=== PATIENT | female | born 1985 | race Caucasian/White ===

== ENCOUNTER 2022-10-11 15:51 | Inpatient (IN) | payer BC, SELFPAY ==
[2022-10-11 16:12] VITALS: BP 138/92; PULSE 88; PULSE 89; TEMP 36.7; O2SAT 99
[2022-10-11 16:16] VITALS: BMI 30.1
[2022-10-11 16:28] VITALS: BP 127/83; PULSE 84
[2022-10-11 16:43] VITALS: BP 121/79; PULSE 90
[2022-10-11 17:13] LABS: Basophils Absolute Auto 0.02 K/uL (0.00-0.30); Basophils Percent Auto 0.2 % (0.0-3.0); Eosinophils Absolute Auto 0.03 K/uL (0.00-0.50); Eosinophils Percent Auto 0.4 % (0.0-7.0); Hematocrit 38.1 % (33.0-51.0); Hemoglobin* 12.9 gm/dL (12.0-16.0); Immature Granulocytes Abs Auto 0.04 K/uL (0.00-0.30); Immature Granulocytes Pct Auto 0.5 %; Lymphocytes Percent Auto 18.5 % (20-44); Mean Corpuscular HGB Conc 34 gm/dL (32-36); Mean Corpuscular Hemoglobin 31 pg (26-34); Mean Corpuscular Volume 93 fL (80-100); Monocytes Percent Auto 6.1 % (0.0-11.0); Neutrophils Percent Auto 74.3 % (42.0-72.0); Platelet Count* 223 K/uL (140-440); RDW Coefficient of Variation % 12.6 % (11.5-15.5); Red Blood Count 4.11 m/uL (4.00-5.20); White Blood Count* 8.38 K/uL (4.50-11.00)
[2022-10-11 17:23] LABS: Slide Review Reflex No
--- NOTE | 2022-10-11 18:06 | P.OBHP_ITS ---
OB - H&P: HPI Labor/Induction History of Present Illness Time Seen by Provider: 18:06 Date Seen: 10/11/22 Chief Complaint: The patient is a 37 year old 1 para 0 at 38+6 weeks gestation by 7 wk US, who presents for IOL for pregestational hypertension and GDM. Chief complaint: Maternity : 1 Para: 0 Narrative: Arabella Sctot is a 37 year old female at 38w6d by 7 wk US who presents for IOL. complicated by AMA, pregestational hypertension not requiring medication, GDM on insulin and suspected macrosomia. Blood sugars have bee n well-controlled with current insulin regimen of 18 units NPH QHS. Blood pressures have remained normal throughout . Of note, baseline pre- eclampsia labs did show proteinuria with pr/cr 0.8. 24 hour urine was WNL. Patient had normal level 2 US and low risk NIPT. Most recent growth showed EFW >90th percentile and AC >98th percentile at 36 weeks. Today, patient feels well. Denies signs/sx of labor. Normal movement. Blood sugars have been at goal. History of Present Dating criteria: based on 1st trimester US only care: good care Labs Blood type: O (+) positive Rubella: immune RPR/VDLR: nonreactive GBS status: negative HBsAG: negative Review of Systems Status of ROS: Reports: 10 or more systems reviewed and unremarkable except as noted in History and below Meds Home Medications and Allergies Home Medications Medication Instructions Recorded Confirmed Type aspirin 81 mg capsule 81 mg PO DAILY 10/11/22 10/11/22 History insulin NPH isoph U-100 human 100 18 unit subcut .bedtime 10/11/22 10/11/22 History unit/mL (3 mL) subcutaneous pen (Novolin N FlexPen) vits,calcium 91-iron 28 1 pkg PO DAILY 10/11/22 10/11/22 History mg-folic 975 mcg-dha 200 mg oral pack ( + DHA) Allergies Allergy/AdvReac Type Severity Reaction Status Date / Time No Known Drug Allergies Allergy Verified 10/11/22 16:24 OB - H&P: Exam Physical Exam: Vital signs: Pulse BP Pulse Ox 90 121/79 99 10/11/22 16:43 10/11/22 16:43 08/15/23 16:12 Narrative: General appearance: Well-appearing adult female. Alert, oriented and appropriate. Sitting up in hospital bed. HEENT: EOMI, no conjunctival injection or discharge. MMM. Neck: Supple. CV: RRR, no rubs, murmurs or extra heart sounds. Pulm: CTAB, no wheezes, rales or rhonchi. Abdomen: Soft, non-tender. Gravid. MSK: Moving all extremities. Ext: Warm and well-perfused. No LE edema. Skin: No rashes appreciated over exposed skin. Neuro: Grossly normal strength and sensation. No focal deficits. Psych: Normal affect. Detailed Labor and Delivery Exam: Patient Gravid: Yes Dilation (cm): 0 Cervix position: posterior Consistency: medium Comments: Occasional contractions, not appreciated by patient Fetus (Single): Amniotic Membrane Status: intact Heart Rate Baseline: 130 Monitor Accelerations: Present Monitor Decelerations: None Personal Security Specialist Variability: Moderate (6-25) OB - Results Labs Labs: Short CBC 10/11/22 Range/Units 17:05 WBC 8.38 (4.50-11.00) K/uL Hgb 12.9 (12.0-16.0) gm/dL Hct 38.1 (33.0-51.0) % Plt Count 223 (140-440) K/uL OB - Problem Based A/P Additional Plan (1) Term : Status: Acute Plan: - Cervical ripening with oral cytotec per protocol - GBS negative - status category I - Epidural upon request (2) Gestational diabetes: Problem details: Well-controlled on NPH 18 units nightly Status: Acute Plan: - Blood sugar management per GDM protocol (3) Hypertension affecting : Problem details: Blood pressure have remained WNL throughout Status: Acute (4) AMA (advanced maternal age) primigravida 35+: Status: Acute
[2022-10-11] MEDS: miSOPROStoL 25 MCG/0.25 TABLET PO ×3 (18:26→22:54)
[2022-10-11 20:24] VITALS: BP 128/73; PULSE 85
[2022-10-11] MEDS: INSULIN NPH 100 UNIT/ML 18 UNIT SUBCUT (20:56)
[2022-10-11 22:51] VITALS: BP 119/60; PULSE 76; RESP 16; TEMP 36.8
[2022-10-12] VITALS (19 sets, daily range): BP systolic 108–129; BP diastolic 58–83; PULSE 67–88; RESP 16; TEMP 36.6–37; O2SAT 95
[2022-10-12] MEDS: miSOPROStoL 25 MCG/0.25 TABLET PO ×3 (01:11→06:05)
[2022-10-12] MEDS: DINOPROSTONE 10 MG VAGINAL INSERT VAGINAL (12:10)
[2022-10-12] MEDS: INSULIN NPH 100 UNIT/ML 18 UNIT SUBCUT (21:04)
[2022-10-13] VITALS (96 sets, daily range): BP systolic 87–157; BP diastolic 37–84; PULSE 63–218; RESP 16–18; TEMP 36.7–38.2; O2SAT 79–100
[2022-10-13] MEDS: OXYTOCIN 30 unit/500 ML in NS 30 UNIT/500 ML BAG IVPB (02:20)
[2022-10-13] MEDS: LACTATED RINGERS 1000 ML 1,000 ML 125 ML IV ×3 (02:20→09:29)
[2022-10-13] MEDS: fentaNYL 100 MCG/2 ML inj IVP (06:37)
--- NOTE | 2022-10-13 06:57 | P.OBPN_ITS ---
Subjective Time Seen by Provider: 06:57 Date Seen: 10/13/22 Narrative: Patient is s/p cyctotec x 6 doses and cervidil x 12 hours. SROM for clear fluid aroun 0000. More uncomfortable since then, breathing through contractions. Now on 5 of pit, just received fentanyl for pain management. Objective Vital Signs: Last Vital Signs Temp 98.4 F 10/13/22 06:20 Pulse 86 10/13/22 06:40 Resp 18 10/13/22 06:20 BP 119/71 10/13/22 06:40 Pulse Ox 95 10/12/22 00:56 Pelvic Exam Dilation (cm): 1 Effacement (%): 90 Station: -2 Contractions Contraction Frequency: Q2-4 Contraction pattern: Regular Pitocin Rate (mU/min): 5 Assessment Amniotic Membrane Status: SROM Status: Category l Heart Rate Baseline: 135 Intermediate Variability: Moderate (6-25) Monitor Accelerations: Present Monitor Decelerations: None Tracing Comments: Category I Labor Progress: More active labor since SROM Plan Plan: - Continue to titrate pitocin to maintain regular contraction pattern - SROM x 7 hours - Epidural upon request - Guarded given slow progress, but anticipate vaginal delivery
[2022-10-13] MEDS: ROPIVACAINE 0.2% 100 ml 100 ML 12 MG EPIDURAL ×2 (10:03→18:02)
[2022-10-13] MEDS: PHENYLEPHRINE 100 MCG/ML SYRINGE IVP ×3 (10:06→17:04)
--- NOTE | 2022-10-13 10:30 | P.ANBPRC_ITS ---
PFSH PFSH Social History What is your current living situation?: I presently have a place to live Problems where you live: no known problems In the past 12 months, utilities in danger of being shut off: no In the past 12 mos, have been you worried that your food would run out before you had money to buy more?: never true In the past 12 mos, the food you bought just didn't last and you didn't have money to buy more?: never true Smoking Status: Never smoker How often does anyone, including family, friends and others, physically hurt you : never How often does anyone, including family, friends and others, insult or talk down to you: never How often does anyone, including family, friends and others, threaten you with harm: never How often does anyone, including family, friends and others, scream or curse at you: never Meds Home Medications and Allergies Home Medications Medication Instructions Recorded Confirmed Type aspirin 81 mg capsule 81 mg PO DAILY 10/11/22 10/11/22 History insulin NPH isoph U-100 human 100 18 unit subcut .bedtime 10/11/22 10/11/22 History unit/mL (3 mL) subcutaneous pen (Novolin N FlexPen) vits,calcium 91-iron 28 1 pkg PO DAILY 10/11/22 10/11/22 History mg-folic 975 mcg-dha 200 mg oral pack ( + DHA) Allergies Allergy/AdvReac Type Severity Reaction Status Date / Time No Known Drug Allergies Allergy Verified 10/11/22 16:24 Results Vital Signs Vital Signs: Last Vital Signs Temp 98.9 F 10/13/22 09:46 Pulse 98 10/13/22 10:27 Resp 18 10/13/22 06:20 BP 117/65 10/13/22 10:27 Pulse Ox 97 10/13/22 10:25 Weight: 73.89 kg Height: 157.48 cm Anesthesia Procedures Epidural Insertion Patient Location: OB Start Time: : Stop Time: :15 Start Date: 10/13/22 Stop Date: 10/13/22 Reason for Block: procedure for pain Patient Position: sitting Performed By: Petty Thorpe Preanesthetic Checklist: IV checked, risks and benefits discussed, monitors and equipment checked, timeout performed and anesthesia consent Prep: chlorhexidine gluconate Monitoring: blood pressure monitoring, continuous pulse oximetry and heart rate Approach: midline Vertebral Space: lumbar (1-5) Epidural Technique: SUMAN saline Needle Type: Tuohy needle Injection Technique: continuous catheter Needle gauge: 17 Needle Length (cm): 10 cm Needle Insertion Depth (cm): 6 Catheter Gauge: 19 Catheter Type: multi-orifice Catheter at skin depth (cm): 12 Test Dose Result: negative and lidocaine 1.5% with epinephrine 1 to 200,000
[2022-10-13] MEDS: LACTATED RINGERS 1000 ML 1,000 ML 999 ML IV ×4 (10:33→16:12)
[2022-10-13] MEDS: ACETAMINOPHEN 500 MG TABLET 1000 MG PO (14:31)
[2022-10-13 16:14] LABS: Basophils Percent Auto 0.1 % (0.0-3.0); Hematocrit 32.1 % (33.0-51.0); Hemoglobin* 10.8 gm/dL (12.0-16.0); Immature Granulocytes Pct Auto 0.5 %; Lymphocytes Percent Auto 7.6 % (20-44); Mean Corpuscular HGB Conc 34 gm/dL (32-36); Mean Corpuscular Hemoglobin 32 pg (26-34); Mean Corpuscular Volume 94 fL (80-100); Monocytes Percent Auto 6.2 % (0.0-11.0); Neutrophils Percent Auto 85.6 % (42.0-72.0); Platelet Count* 189 K/uL (140-440); RDW Coefficient of Variation % 12.6 % (11.5-15.5); Red Blood Count 3.41 m/uL (4.00-5.20); White Blood Count* 13.33 K/uL (4.50-11.00)
[2022-10-13] MEDS: AMPICILLIN 2 GM in 0.9 % SODIUM CHLORIDE Mini-bag 100 ML IVPB ×2 (16:14→22:12)
[2022-10-13 16:21] LABS: Slide Review Reflex No
--- NOTE | 2022-10-13 17:26 | PM.OBPNL ---
Subjective Time Seen by Provider: 17:26 Date Seen: 10/13/22 Narrative: I was called in to evaluate the patient due to recurrent late decelerations. Patient being treated for chorioamnionitis with max temp 100.7, FHR 155. s/p 1 dose of amp and gent. Ruptured x 15 hours. In addition, multiple low blood pressures 80-90s/40-50s, s/p IVF bolus x 4 and phenylephrine. Last few improved to 1teens/60s. Pitocin off. Objective Exam: General appearance: Flushed, but overall well-appearing adult female. Alert, oriented and appropriate. Sitting up in hospital bed. CV: Appears well-perfused Pulm: Breathing comfortably on room air Vital Signs: Last Vital Signs Temp 99.2 F 10/13/22 16:25 Pulse 94 10/13/22 17:05 Resp 16 10/13/22 12:50 BP 93/52 L 10/13/22 17:05 Pulse Ox 79 L 10/13/22 10:38 Pelvic Exam Dilation (cm): 5 Effacement (%): 100 Station: -1 Contractions Contraction Frequency: Q7 Contraction pattern: Regular Pitocin Rate (mU/min): 0 Assessment Assessment: active labor Station: -1 Amniotic Membrane Status: SROM Status: Category ll Heart Rate Baseline: 150 Chcf Variability: Moderate (6-25) Monitor Accelerations: Present Monitor Decelerations: Late Tracing Comments: Recurrent lates Plan Plan: - Concern for intolerance of labor with recurrent late decelerations. In addition, slow labor progress and maternal chorioamnionitis decrease the likelihood of vaginal delivery. Plan involvement of commercial solar sales consultant OB, Dr. Romero, when available (currently in the OR) to consider section. This has been discussed with the patient and she is agreeable
--- NOTE | 2022-10-13 19:18 | PM.OBPRCCS ---
Procedure Time Seen by Provider: 06:00 Date of procedure: 10/13/22 Pre-op diagnosis: Term intrauterine . Gestational diabetic A2. Gestational hyperti Post-op diagnosis: same (Chorioamnionitis.) Procedure Done: only Will [facility] bill your pro fee for this procedure?: Yes Blood Loss Measurement Type: EBL (Seven hundred fifty) Bakri Used: No Surgeon: Josr Romero Diplomatic Interpreter: pharmacy technician per diem Anesthesia type: Epidural Procedure Description: Patient was brought to the operating room placed in a room table in spine position where epidural anesthesia was dosed. Patient was prepped and draped in usual fashion. Scalpel used to make a Pfannenstiel incision in the abdominal cavity was entered in the usual fashion exposing a gravid uterus. Scalpel used to make a lower segment transverse uterine incision which was extended bilaterally. The was delivered without difficulty. After 30 seconds the cord was doubly clamped and cut. The infant was handed to the waiting Dr.. Cord gases were obtained. Placenta spontaneously delivered intact uterine cavity was wiped clean of any remaining clots and membranes. Uterine incision was closed with a running stitch of 0 chromic hemostasis required few more [id number] stitches. Hemostasis was then excellent. The gutters were swabbed clean of her remaining clots and membranes. The uterine incision again was checked and found to be hemostatically secure. The fascia was closed with 0 PDS. Skin was closed ethel and patient was transferred to the recovery room in excellent condition having tolerated the procedure well. The infant was male. Apgars 9 9. Cord gases pending. Weight pending Complications: None Condition: stable Disposition: PACU
--- NOTE | 2022-10-13 19:39 | SUR.OPER ---
PATIENT BROUGHT TO OR #5 PER CART.? Patient positioned supine on OR #5 bed.? The perioperative?team supported arms bilaterally on arm boards. Final approval of positioning by surgeon.?
--- NOTE | 2022-10-13 19:40 | SUR.OPER ---
SURGEON DECLINES OFFER TO SEND THE PLACENTA TO PATHOLOGY.
--- NOTE | 2022-10-13 20:43 | W.ANESCHARGE ---
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
--- NOTE | 2022-10-13 20:44 | P.NB_ITS ---
Nerve Block Nerve Block Time Seen by Provider: 20:12 Date Seen: 10/13/22 Type of block requested by surgeon for post-operative analgesia: TAP Side: bilateral Time out performed: Yes Verification of patient name: Yes Verification of date of : Yes Site marking: not applicable Name of person performing procedure: boyd Continuous monitoring Was continuous monitoring of O2 sat, B/P, coding specialist home health, recorded every 15 minutes?: Yes Procedure Checklist: sterile prep and needles Ultrasound guided. Images saved: Yes Medications given in 5ml increments after negative aspiration: Marcaine %: 0.25 mL: 30 Needle gauge: 20 and Exparel mL: 10 Patient tolerated procedure well: Yes Block Charges Block Charge (with Pro Fee): TAP Bilateral Use of Ultrasound Machine for Block: Yes- US Guidance/pain block
[2022-10-13] MEDS: LOPERAMIDE HCL 2 MG CAPSULE PO (21:43)
[2022-10-14] VITALS (25 sets, daily range): BP systolic 97–119; BP diastolic 61–75; PULSE 83–93; RESP 16–18; TEMP 36.7–37.2; O2SAT 93–96
[2022-10-14] MEDS: KETOROLAC 30 MG/ML inj IVP ×3 (02:28→14:10)
[2022-10-14] MEDS: AMPICILLIN 2 GM in 0.9 % SODIUM CHLORIDE Mini-bag 100 ML IVPB ×3 (04:28→16:41)
[2022-10-14] MEDS: ACETAMINOPHEN 500 MG TABLET 1000 MG PO ×4 (04:45→23:08)
[2022-10-14 06:47] LABS: Hemoglobin* 9.3 gm/dL (12.0-16.0)
[2022-10-14] MEDS: DOCUSATE SODIUM 100 MG CAPSULE PO (08:17)
--- NOTE | 2022-10-14 08:24 | P.OBPN_ITS ---
OB - PN:Subj Subjective Time Seen by Provider: 08:24 Date Seen: 10/14/22 Patient comments OB post-: no complaints Narrative: Patient denies any flatus. Pain well controlled. Patient without complaints. OB - PN: Obj Exam Physical Exam: Vital signs: Temp Pulse Resp BP Pulse Ox O2 Del Method 98.2 F 89 16 103/62 93 Room Air 10/14/22 08:09 10/14/22 08:09 10/14/22 08:09 10/14/22 08:09 10/14/22 08:09 10/14/22 08:09 Narrative: HEENT: Unremarkable. Lungs: Clear Heart: Positive S1-S2 no S3 or S4. Abdomen: Positive bowel sounds. But decreased. No rebound or guarding. Nondistended. Extremities: Negative Homans sign. No edema. Incision: Bandage Clean, dry and intact. OB - PN: Obj Data Labs Labs: Laboratory Results - last 24 hr 10/13/22 10/14/22 16:04 06:22 WBC 13.33 H RBC 3.41 L Hgb 10.8 L 9.3 L Hct 32.1 L MCV 94 MCH 32 MCHC 34 RDW Coeff of Yfn 12.6 Plt Count 189 Neut % (Auto) 85.6 H Lymph % (Auto) 7.6 L [place] % (Auto) 6.2 Eos % (Auto) 0.0 Baso % (Auto) 0.1 Neut # (Auto) 11.40 H Lymph # (Auto) 1.00 [place] # (Auto) 0.80 Eos # (Auto) 0.00 Baso # (Auto) 0.00 Abs Immat Gran (auto) 0.10 Imm/Tot Granulo (auto) 0.5 OB - PN: A/P Delivery Assessment and Plan (1) Term : Status: Acute (2) Gestational diabetes: Problem details: Well-controlled on NPH 18 units nightly Status: Acute (3) Hypertension affecting : Problem details: Blood pressure have remained WNL throughout Status: Acute (4) AMA (advanced maternal age) primigravida 35+: Status: Acute Plan Assessment: Status post . Postop day 1. Advance diet as tolerated. Ambulate. DIAZ Brian. Gestational hypertension. Blood pressure is well controlled without medicine. Gestational diabetic A2. Patient getting Accu-Cheks every 6 hours. Accu-Cheks have been in the 80s. No insulin necessary. Chorioamnionitis. Patient on amp and Gent.
[2022-10-14] MEDS: diphenhydrAMINE 50 MG/ML inj 12.5 MG IVP (11:40)
[2022-10-14] MEDS: IBUPROFEN 600 MG TABLET PO (20:27)
[2022-10-14] MEDS: OXYCODONE 5 MG TABLET PO (23:18)
[2022-10-15 00:21] VITALS: BP 102/59; PULSE 89; RESP 16; TEMP 36.5; O2SAT 92
[2022-10-15] MEDS: IBUPROFEN 600 MG TABLET PO ×4 (01:54→21:17)
[2022-10-15] MEDS: OXYCODONE 5 MG TABLET PO ×6 (01:54→23:27)
[2022-10-15 02:30] VITALS: BP 107/61; PULSE 78; RESP 16; TEMP 36.6; O2SAT 94
[2022-10-15] MEDS: ACETAMINOPHEN 500 MG TABLET 1000 MG PO ×3 (05:10→18:40)
[2022-10-15] MEDS: DOCUSATE SODIUM 100 MG CAPSULE PO (08:54)
[2022-10-15 09:19] VITALS: BP 112/72; PULSE 86; RESP 16; TEMP 36.6; O2SAT 93
--- NOTE | 2022-10-15 13:00 | PM.OBPNVD1 ---
OB - PN:Subj Subjective Time Seen by Provider: 13:00 Date Seen: 10/15/22 Interval history: Patient doing well. Positive flatus. Pain well controlled with oral medication. Tolerating general diet. Ambulating well. OB - PN: Obj Exam Physical Exam: Vital signs: Temp Pulse Resp BP Pulse Ox O2 Del Method 97.9 F 86 16 112/72 93 Room Air 10/15/22 09:10/15/22 09:10/15/22 09:10/15/22 09:10/15/22 09:10/15/22 09:19 Narrative: HEENT: Unremarkable. Lungs: Clear Heart: Positive S1-S2 no S3 or S4. Abdomen: Soft and nontender. Positive bowel sounds. Incision: Clean, dry and intact. Lower extremities: Negative Homans sign no edema OB - PN: A/P Delivery Assessment and Plan (1) Term : Status: Acute (2) Gestational diabetes: Problem details: Well-controlled on NPH 18 units nightly Status: Acute (3) Hypertension affecting : Problem details: Blood pressure have remained WNL throughout Status: Acute (4) AMA (advanced maternal age) primigravida 35+: Status: Acute Plan Assessment: Status post . Postop day 2. Doing well. Continue to ambulate. Continue p.o. pain medicines. Gestational diabetic A2. No longer getting Accu-Cheks. All have been normal. Chronic hypertension. Doing well on no medication.
[2022-10-15 15:30] VITALS: BP 119/64; RESP 16; TEMP 36.8; O2SAT 96
[2022-10-15 21:15] VITALS: BP 111/72; PULSE 76; RESP 16; TEMP 36.8; O2SAT 96
[2022-10-16] MEDS: ACETAMINOPHEN 500 MG TABLET 1000 MG PO ×2 (01:03→07:55)
[2022-10-16 01:12] VITALS: BP 104/70
[2022-10-16] MEDS: IBUPROFEN 600 MG TABLET PO ×2 (03:55→10:57)
[2022-10-16] MEDS: OXYCODONE 5 MG TABLET PO ×3 (03:56→12:05)
[2022-10-16 04:03] VITALS: BP 108/76; PULSE 68; RESP 16; TEMP 36.5; O2SAT 99
[2022-10-16] MEDS: DOCUSATE SODIUM 100 MG CAPSULE PO (07:55)
[2022-10-16 07:56] VITALS: BP 104/66; PULSE 87; RESP 16; TEMP 36.7; O2SAT 97
--- NOTE | 2022-10-16 08:46 | P.DS_ITS ---
DS: Providers Provider Time Seen by Provider: 08:46 Date Seen: 10/16/22 Date of admission: 10/11/22 15:51 Primary care physician: Kareen Gan MD Admitting Clinician: Kareen Gan MD Attending Physician on discharge: Josr Romero MD Date of Discharge: 10/16/22 DS: Diagnosis Discharge Diagnosis (1) Term : Status: Acute (2) Gestational diabetes: Status: Acute Problem details: Well-controlled on NPH 18 units nightly (3) Hypertension affecting : Status: Acute Problem details: Blood pressure have remained WNL throughout Exam Narrative: Exam Narrative: HEENT: Unremarkable. Lungs: Clear Heart: Positive S1-S2 no S3 or S4 Abdomen: Positive bowel sounds. Soft and nontender. Incision: Clean, dry and intact Lower extremities: No edema. Negative Homans sign. Const: Vital Signs, click to edit/add: Vital Signs - 24 hr 10/15/22 09:19 10/15/22 15:30 10/15/22 21:15 Temperature 97.9 F 98.2 F 98.3 F Pulse Rate [Pulse Oximeter] 86 76 Respiratory Rate 16 16 16 Blood Pressure [Le ft Arm] 112/72 119/64 111/72 Pulse Oximetry 93 96 96 Oxygen Delivery Me thod Room Air Room Air Room Air 10/16/22 01:12 10/16/22 04:03 10/16/22 07:56 Temperature 97.7 F 98.0 F Pulse Rate [Pulse Oximeter] 68 87 Respiratory Rate 16 16 Blood Pressure [Le ft Arm] 104/70 108/76 104/66 Pulse Oximetry 99 97 Oxygen Delivery Me thod Room Air OB - DS: Summary Hospital Course Hospital Course: This is a 37-year-old female 1 para 0 who presented for induction of labor secondary to a history of chronic hypertension and gestational diabetes A2 on NPH insulin. Patient underwent induction labor but had intolerance to labor and underwent a primary lower segment transverse section. Previous to healthy . Patient's postop course was unremarkable. Patient had rapid return of her bowel function. Accu-Cheks were normal after delivery without insulin. Blood pressures remain stable without medicine. Patient went home on postop day 3. Instructed to follow-up in 2 weeks. Time spent discussing smoking cessation with patient: more than 10 minutes Peripartum Data Infant delivery method: Primary C/S; Labored Procedures: Procedures Operation Date: 10/13/22 20:15 Actual Procedure Side Surgeon p Section Josr Romero MD Time Spent with Patient Time attestation: Total time spent providing and/or coordinating discharge services: Discharge Plan Discharge Disposition: Home, Self-Care Date of Admission: 10/11/22 15:51 Primary Care Provider: Kareen Gan I Condition: Stable Anticipated Discharge Date/Time: 10/16/22 08:49 Discharge Medications: New docusate sodium 100 mg Capsule 100 mg PO DAILY Qty: 90 0RF ibuprofen 600 mg tablet 600 mg PO 3XD PRN (Reason: Pain) Qty: 90 0RF Discontinued Novolin N FlexPen 100 unit/mL (3 mL) insulin pen 18 unit subcut .bedtime aspirin 81 mg capsule 81 mg PO DAILY + DHA 28 mg iron- 975 mcg-200 mg combo pack 1 pkg PO DAILY Discharge Orders: Discharge Order (Routine); Ordered 10/16/22 Ordered By: Josr Romero Patient Education: OB Over the Counter Medication Information, OB /Breast Feeding Follow Up Appointments: Kareen Gan MD [Primary Care Provider] - [facility]: [facility]
== END 2022-10-16 13:30 | disposition home or self-care (01) | DRG 540 ==
PROVIDERS: Admitting Provider Family Medicine; PCP Family Medicine; Visit Provider Specialist
PROC: 10D00Z1 Extraction of Products of Conception, Low, Open Approach (ICD-10-PCS; CPT 59514; principal; 2022-10-13 20:00)
DX: O10.92 Unspecified pre-existing hypertension complicating childbirth (principal); O24.424 Gestational diabetes mellitus in childbirth, insulin controlled; O76 Abnormality in fetal heart rate and rhythm complicating labor and delivery; O41.1230 Chorioamnionitis, third trimester, not applicable or unspecified; Z3A.38 38 weeks gestation of pregnancy; G89.18 Other acute postprocedural pain; Z37.0 Single live birth
CPT/HCPCS: 01967; 01968; 36415; 59200; 64488; 76942; 82962; 85018; 85025; 86850; 86900; 86901; 87040; 87186; 99140; A9270; C9290; J0290; J0665; J1100; J1200; J1580; J1885; J2274; J2371; J2405; J2590; J2765; J2795; J3010; J7120; S0020

== ENCOUNTER 2023-09-20 09:35 | Outpatient (CLI) | payer BC, SELFPAY ==
--- NOTE | 2023-09-20 10:15 | CRLHL7_ITS ---
For Patients: As a result of the Century Cures Act, medical imaging exams and procedure reports are released immediately into your electronic medical record. You may view this report before your referring provider. If you have questions, please contact your health care provider. ULTRASOUND-GUIDED BREAST BIOPSY AND POST-BIOPSY DIGITAL MAMMOGRAM FOR BIOPSY MARKER PLACEMENT CLINICAL HISTORY: Indeterminate solid mass. COMPARISON STUDIES: 09/13/2023. TECHNIQUE: Real-time ultrasound with image documentation was used for targeting the breast lesion. Core biopsy specimens were obtained using an automated gun with an 18-gauge biopsy needle. Post-biopsy CC and ML digital mammograms were obtained to document position of the biopsy marker. CONSENT and TIME OUT: The procedure, risks, and alternatives were explained to the patient and a consent was signed. [place] Protocol was followed including pre-procedure verification that relevant information/documentation was available, reviewed and properly matched to the patient; consent accurate and complete; and equipment and supplies available. Time Out was conducted just prior to starting procedure to verify the four required elements: patient identity, correct side/site marked (if applicable), procedure, relevant images/results properly labeled and displayed (if applicable). PROCEDURE: The patient was positioned supine on the ultrasound table. The breast was prepped with ChloraPrep. 6 cc of 1 percent lidocaine used for local anesthesia. Core samples were obtained. A sterile metal biopsy clip was placed percutaneously to giovani the lesion position within the breast. The specimens were placed in 10% formalin and sent to the pathology department. Pressure was held on the biopsy site until all bleeding subsided. The skin incision was closed with Steri-Strips. An ice pack was positioned over the biopsy site. Post-biopsy instructions were reviewed with the patient, and a written copy was given to her. LATERALITY: RIGHT breast. LESION: Hypoechoic solid mass measures 11 x 11 x 10 millimeters at 6 o`clock 1 cm from the nipple. SUSPICION FOR MALIGNANCY: High. NUMBER OF SAMPLES: 5. BIOPSY CLIP SHAPE: Oval. PROXIMITY OF CLIP TO TARGET: Within the lesion. IMPRESSION: Ultrasound-guided breast biopsy. When the pathology report is available, an addendum to this report will be made. ACR not applicable Dictated by Vladimir Trujillo MD @ 09/20/2023 1:16:00 PM jj/Dictated by: Vladimir Trujillo MD @ 09/20/2023 1:13:00 PM (Electronically Signed)
--- NOTE | 2023-09-20 11:00 | CRLHL7_ITS ---
For Patients: As a result of the Century Cures Act, medical imaging exams and procedure reports are released immediately into your electronic medical record. You may view this report before your referring provider. If you have questions, please contact your health care provider. PLEASE SEE ULTRASOUND-GUIDED RIGHT BREAST BIOPSY PERFORMED SAME DAY CRL:preston [email or web address]/Dictated by: Vladimir Trujillo MD @ 09/20/2023 1:13:00 PM (Electronically Signed)
== END 2023-09-20 09:36 | disposition home or self-care (01) ==
LOC: US 09:36
PROVIDERS: PCP Family Medicine; Visit Provider Family Medicine
DX: N63.10 Unspecified lump in the right breast, unspecified quadrant (principal); C50.911 Malignant neoplasm of unspecified site of right female breast
CPT/HCPCS: 19083; 77065; 88305; 88341; 88342; 88360; 88361; A4648; A4649

== ENCOUNTER 2023-09-27 09:44 | Outpatient (CLI) | payer BC, SELFPAY ==
--- NOTE | 2023-09-27 10:15 | CRLHL7_ITS ---
For Patients: As a result of the 21st Century Cures Act, medical imaging exams and procedure reports are released immediately into your electronic medical record. You may view this report before your referring provider. If you have questions, please contact your health care provider. BILATERAL BREAST MRI WITHOUT AND WITH GADOLINIUM CLINICAL HISTORY: Recently diagnosed breast cancer after ultrasound-guided biopsy of a palpable mass at 6 o`clock, 1 cm from the nipple in the right breast. INDICATION FOR BREAST MRI: Staging of newly diagnosed breast cancer and screening of contralateral breast. Regional lymph nodes will also be assessed. COMPARISON STUDIES: Diagnostic bilateral mammogram and ultrasound 09/13/2023 and images from ultrasound-guided biopsy and post biopsy mammogram 09/20/2023. CONTRAST: 20 mL Dotarem. TECHNIQUE: The patient was positioned prone using a breast coil. Multiple imaging sequences were obtained using 1-1.5 mm thick slices with no gap. The image sequences include T2-weighted STIR in the axial plane, T1-weighted nonfat-saturated gradient echo in the axial plane, pre- and post-contrast T1-weighted FLASH 3D with fat suppression in the axial plane, and T1-weighted FLASH high resolution 3D with fat suppression in the sagittal plane. Image post-processing was performed on a Zoomdata workstation. Complex 3D rendering including maximum intensity projections (MIPS) and volumetric renderings were obtained to optimize visualization of the extent of pathology and relationship to the nipple, skin, and chest wall. This aids in determining feasibility of breast conservation surgery. Subtraction, multiplanar reconstruction, mean curve determination, and angiogenesis mapping were also performed. The study was technically adequate. FINDINGS: Amount of Fibroglandular Tissue: Heterogeneous fibroglandular tissue. Breast Background Enhancement: Moderate. RIGHT Breast: At 6 o`clock, 3 cm posterior to the nipple there is a 1.6 x 1.8 x 1.6 cm (cc by AP by transverse) oval mass with irregular margins demonstrating fast initial and washout delayed phase enhancement. There is susceptibility artifact within the mass from the clip marking the site of biopsy-proven malignancy. There is a projection off the inferior lateral aspect of the mass measuring 1.1 x 0.9 x 1 cm. If this is measured as a part of the biopsied malignant mass the CC measurement becomes 2.1 cm. However, this could at least in part be related to post biopsy change. LEFT Breast: In the retroareolar breast at mid to posterior depth, 5 cm posterior to the nipple there is a 0.5 x 0.8 x 0.4 cm oval, circumscribed mass demonstrating fast initial and persistent delayed phase enhancement. Lymph Nodes: There is a right axillary lymph node with apparent focal cortical thickening measuring up to 5 mm. No abnormal morphology lymph nodes on the left. IMPRESSIONS AND RECOMMENDATIONS: 1. The biopsy proven malignant mass at 6 o`clock in the right breast measures at least 1.8 cm on MRI. This is larger than measured on ultrasound but corresponds to mammographic measurements. There is a projection off the inferior lateral aspect of the mass which increased the cranial caudal measurement to 2.1 cm if included. That projection was not seen mammographically or on the provided ultrasound images and could be related to post biopsy changes. If it would alter management a repeat ultrasound could be performed for confirmation. 2. There is a 0.8 cm enhancing mass in the retroareolar left breast. Targeted left breast ultrasound is recommended for further evaluation. If there is no sonographic correlate then MRI guided biopsy would be recommended. 3. There is a right axillary lymph node which appears to have mild cortical thickening. Right axillary ultrasound and possible ultrasound-guided biopsy are recommended. No abnormal morphology lymph nodes on the left. BI-RADS Category 4: Suspicious. Dictated by Cierra Elaine MD @ 10/03/2023 10:53:56 AM (Electronically Signed)
== END 2023-09-27 09:45 | disposition home or self-care (01) ==
LOC: MRI 09:45
PROVIDERS: PCP Family Medicine; Visit Provider Surgery
DX: C50.911 Malignant neoplasm of unspecified site of right female breast (principal); R59.0 Localized enlarged lymph nodes
CPT/HCPCS: 77049; A9575

== ENCOUNTER 2023-10-09 10:37 | Outpatient (CLI) | payer BC, SELFPAY ==
--- NOTE | 2023-10-09 | CRLHL7_ITS ---
For Patients: As a result of the 21st Century Cures Act, medical imaging exams and procedure reports are released immediately into your electronic medical record. You may view this report before your referring provider. If you have questions, please contact your health care provider. ULTRASOUND-GUIDED LEFT BREAST BIOPSY AND POST-BIOPSY DIGITAL MAMMOGRAM FOR BIOPSY MARKER PLACEMENT CLINICAL HISTORY: Recent diagnosis of RIGHT breast cancer. MRI demonstrated enhancing lesion in the retroareolar LEFT breast. COMPARISON STUDIES: MRI 09/27/2023. TECHNIQUE: Real-time ultrasound with image documentation was used for targeting the breast lesion. Core biopsy specimens were obtained using an automated gun with an 18-gauge biopsy needle. Post-biopsy CC and ML digital mammograms were obtained to document position of the biopsy marker. CONSENT and TIME OUT: The procedure, risks, and alternatives were explained to the patient and a consent was signed. [place] Protocol was followed including pre-procedure verification that relevant information/documentation was available, reviewed and properly matched to the patient; consent accurate and complete; and equipment and supplies available. Time Out was conducted just prior to starting procedure to verify the four required elements: patient identity, correct side/site marked (if applicable), procedure, relevant images/results properly labeled and displayed (if applicable). PROCEDURE: The patient was positioned supine on the ultrasound table. The breast was prepped with ChloraPrep. 8cc of 1 percent lidocaine used for local anesthesia. Core samples were obtained. A sterile metal biopsy clip was placed percutaneously to giovani the lesion position within the breast. The specimens were placed in 10% formalin and sent to the pathology department. Pressure was held on the biopsy site until all bleeding subsided. The skin incision was closed with Steri-Strips. An ice pack was positioned over the biopsy site. Post-biopsy instructions were reviewed with the patient, and a written copy was given to her. LATERALITY: LEFT breast. LESION: Hypoechoic solid mass measures 7 x 8 mm in the retroareolar plane 1 cm from the nipple at mid depth corresponding to the MRI finding. SUSPICION FOR MALIGNANCY: Intermediate, likely fibroadenoma. NUMBER OF SAMPLES: 5. BIOPSY CLIP SHAPE: Oval. PROXIMITY OF CLIP TO TARGET: Within the lesion. IMPRESSION: Ultrasound-guided LEFT breast biopsy. When the pathology report is available, an addendum to this report will be made. ACR not applicable Dictated by Vladimir Trujillo MD @ 10/09/2023 12:50:06 PM /sp/preston SP/Dictated by: Vladimir Trujillo MD @ 10/09/2023 1:43:00 PM (Electronically Signed)
--- NOTE | 2023-10-09 11:30 | CRLHL7_ITS ---
For Patients: As a result of the Century Cures Act, medical imaging exams and procedure reports are released immediately into your electronic medical record. You may view this report before your referring provider. If you have questions, please contact your health care provider. Addendum: Pathology consistent with fragments of benign lymph node. No evidence of metastatic carcinoma. This is concordant. Dictated by: Vladimir Trujillo MD @10/12/2023 1:17:17 PM / CRL:jj ULTRASOUND-GUIDED RIGHT AXILLARY LYMPH NODE BIOPSY AND POST-BIOPSY DIGITAL MAMMOGRAM FOR BIOPSY MARKER PLACEMENT CLINICAL HISTORY: Possible abnormal RIGHT axillary lymph node, recent positive RIGHT breast biopsy. COMPARISON STUDIES: MRI 09/27/2023. TECHNIQUE: Real-time ultrasound with image documentation was used for targeting the RIGHT axillary lymph node lesion. Core biopsy specimens were obtained using an automated gun with an 18-gauge biopsy needle. Post-biopsy CC, XCCL and ML digital mammograms were obtained to document position of the biopsy marker. CONSENT and TIME OUT: The procedure, risks, and alternatives were explained to the patient and a consent was signed. [place] Protocol was followed including pre-procedure verification that relevant information/documentation was available, reviewed and properly matched to the patient; consent accurate and complete; and equipment and supplies available. Time Out was conducted just prior to starting procedure to verify the four required elements: patient identity, correct side/site marked (if applicable), procedure, relevant images/results properly labeled and displayed (if applicable). PROCEDURE: The patient was positioned supine on the ultrasound table. The RIGHT axilla was prepped with ChloraPrep. 8 cc of 1 percent lidocaine used for local anesthesia. Core samples were obtained. A sterile metal biopsy clip was placed percutaneously to giovani the lesion position within the breast. The specimens were placed in 10% formalin and sent to the pathology department. Pressure was held on the biopsy site until all bleeding subsided. The skin incision was closed with Steri-Strips. An ice pack was positioned over the biopsy site. Post-biopsy instructions were reviewed with the patient, and a written copy was given to her. LATERALITY: RIGHT axilla. LESION: A RIGHT axillary lymph node is present which has a slightly prominent lobular cortex. SUSPICION FOR MALIGNANCY: Intermediate. NUMBER OF SAMPLES: 5. BIOPSY CLIP SHAPE: HydroMARK. PROXIMITY OF CLIP TO TARGET: Within the lesion. IMPRESSION: Ultrasound-guided RIGHT axillary lymph node biopsy. When the pathology report is available, an addendum to this report will be made. ACR not applicable Dictated by Vladimir Trujillo MD @ 10/09/2023 12:37:01 PM /sp/preston SP/Dictated by: Vladimir Trujillo MD @ 10/09/2023 1:43:00 PM Signed by: Vladimir Trujillo @ 10/09/2023 2:25:04 PM (Electronic Signature) (Electronically Signed)
--- NOTE | 2023-10-09 12:00 | CRLHL7_ITS ---
For Patients: As a result of the Century Cures Act, medical imaging exams and procedure reports are released immediately into your electronic medical record. You may view this report before your referring provider. If you have questions, please contact your health care provider. PLEASE SEE LEFT BREAST ULTRASOUND-GUIDED BIOPSY OF SAME DAY. CRL:sp SP/Dictated by: Vladimir Trujillo MD @ 10/09/2023 12:50:00 PM (Electronically Signed)
--- NOTE | 2023-10-09 12:00 | CRLHL7_ITS ---
For Patients: As a result of the Cures Act, medical imaging exams and procedure reports are released immediately into your electronic medical record. You may view this report before your referring provider. If you have questions, please contact your health care provider. PLEASE SEE RIGHT AXILLARY LYMPH NODE ULTRASOUND-GUIDED BIOPSY OF SAME DAY. CRL:sp SP/Dictated by: Vladimir Trujillo MD @ 10/09/2023 12:37:00 PM (Electronically Signed)
== END 2023-10-09 10:38 | disposition home or self-care (01) ==
LOC: US 10:37
PROVIDERS: PCP Family Medicine; Visit Provider Surgery
DX: R92.8 Other abnormal and inconclusive findings on diagnostic imaging of breast (principal)
CPT/HCPCS: 19083; 38505; 76942; 77065; 88305; A4648; A4649

== ENCOUNTER 2023-10-19 07:38 | Day surgery (SDC) | payer BC, SELFPAY ==
--- OUTSIDE RECORDS SUMMARY | 2023-10-19 07:40 | XMS_ITS | Clinical Summary ---
Author Organization [facility] Address [address] [place] [address] Care Team Providers Care Pediatric Critical Care Nurse Name Role Phone Unavailable Primary Care Provider Unavailabl e Source Comments Patient records contain information from all sites at [facility]. For routine questions regarding patient records, call [phone] during business hours, M-F 8:00 AM - 5:00 PM Central Time. Record requests for emergency care only can be directed to [phone] at any time.[facility] Allergies No known active allergies Medications Medication Sig Dispensed Refills Start Date End Date Status Estarylla 0.25-35 mg-mcg per tablet Take 1 tablet by mouth daily. Active Active Problems No known active problems Encounters Date Type Department Care Team Description 10/17/2023 1:30 PM CDT Telemedicine Department of Obstetrics and Gynecology in [place], [place] [address] [place] [address] Daniela Vigil APRN, C.N.P., M.S. Malignant Neoplasm Of Breast Lower Inner Quadrant Female Right (HCC) (Primary Dx); Counseling Fertility Preservation Pre Cancer Therapy 10/11/2023 Orders Only Department of Oncology in [place], [place] [address] [place] [address] Edelmira Maharaj M.D. Malignant Neoplasm Of Breast Lower Inner Quadrant Female Right (HCC) (Primary Dx) 10/11/2023 Orders Only Department of Oncology in [place], [place] [address] [place] [address] Edelmira Maharaj M.D. 10/11/2023 Orders Only Department of Oncology in [place], [place] [address] [place] [address] Edelmira Maharaj M.D. Counseling For Fertility Preservation (Primary Dx); Preservation Fertility Procedure from Last 3 Months Social History Tobacco Use Types Packs/Day Years Used Date Smoking Tobacco: Never Assessed PHQ-2 Answer Date Recorded PHQ-2 Score 0 10/15/2023 Exercise Vital Sign Answer Date Recorde d On average, how many days pe r week do you engage in moderate to strenuous exercise (like a brisk walk)? 2 days 10/15/2023 On average, how many minutes do you engage in exercise at this level? 30 min 10/15/2023 Hunger Vital Sign Answer Date Recorded Within the past 12 months, y ou worried that your food would run out before you got the money to buy more. Never true 10/15/19 24 Within the past 12 months, t he food you bought just didn't last and you didn't have money to get more. Never true 10/15/2023 PRAPARE - Transportation Answer Date Re corded In the past 12 months, has l ack of transportation kept you from medical appointments or from getting medications? No 09/27 In the past 12 months, has l ack of transportation kept you from meetings, work, or from getting things needed for daily living? No 10/15/2023 Depression Answer Date Recor ded PHQ-9 Total Score (max 27) 2 10/14 Nutrition Answer Date Recorded On average, how many serving s of fruits and vegetables do you eat per day (serving size is equal to 1 cup or approximately the size of a tennis ball)? 3-5 10/15/2023 Dental Answer Date Recorded Dental: Regular Dentist No 10/15/19 24 Employment Answer Date Recorded Employment status Employed and actively working without restrictions 10/15/2023 Housing Stability Answer Date Recorded What is your living situation today? I have a [facility] place to live 10/15/2023 Sex and Gender Information Value Date Recorded Sex Assigned at Female 10/15/2023 7:08 PM CDT Gender Identity Female 10/15/2023 7:08 PM CDT Sexual Orientation Straight 10/15/2023 7: 08 PM CDT Plan of Treatment Health Maintenance Due Date Last Done Comments Cervical Cancer Screening 1986 HIV Screening 1986 Hepatitis C Screening 1986 Hepatitis B Vaccines (1 of 3 - 19+ 3-dose series) 2005 COVID-19 Vaccine (3 - 2022-2 4 season) 2022 01/27/2021, 01/04/2021 Depression Screening (Annual PHQ-2) 02/27/2023 Influenza Vaccine (#1) 2023 Lipid (Cholesterol) Screening 01/04/2026 01/04/2021 DTaP,Tdap,and Td Vaccines (4 - Td or Tdap) 08/11/2032 08/11/2022, 06/28/2016, 03/21/1990 HPV Vaccines Aged Out No longer eligi ble based on patient's age to complete this topic Pneumococcal vaccine (0-64 years) Aged Out No longer eligible b ased on patient's age to complete this topic
--- OUTSIDE RECORDS SUMMARY | 2023-10-19 07:40 | XMS_ITS | Encounter Summary ---
Author Organization [facility] Address [address] [place] [address] Care Team Providers Care Land Leasing Information Clerk Name Role Phone Unavailable Primary Care Provider Unavailabl e Reason for Referral * Outpatient (Routine) - Authorized Specialty Diagnoses / Procedures Referred By Lois chung Referred To Contact Obstetrics and Gynecology Diagnoses Counseling For Fertility Preservation Preservation Fertility Procedure Edelmira Maharaj M.D. [address] [place] [address] [facility] Referral ID Status Reason Start Date Expiration Date V isits Requested Visits Authorized [id number] Authorized 10/11/2023 04/11/2025 1 1 Encounter Details Date Type Department Care Team (Late st Contact Info) Description 10/11/2023 Orders Only Department of Oncology in [place], [place] [address] [place] [phone] Edelmira Maharaj M.D. [address] [place] [phone] Counseling For Fertility Preservation (Primary Dx); Preservation Fertility Procedure Social History Tobacco Use Types Packs/Day Years [...] Date Recorded Dental: Regular Dentist No 10/15/19 Employment Answer Date Recorded Employment status Employed and actively working without restrictions 10/15/2023 Housing Stability Answer Date Recorded What is your living situation today? I have a [facility] place to live 10/15/2023 Sex and Gender Information Value Date Recorded Sex Assigned at Female 10/15/2023 7:08 PM CDT Gender Identity Female 10/15/2023 7:08 PM CDT Sexual Orientation Straight 10/15/2023 7: 08 PM CDT documented as of this encounter Plan of Treatment Scheduled Referrals Name Type Priority Associated Diagnoses Order Schedule [facility] Referral authorization and benefits check Outpatient Referral Routine Counseling For Fertility Preservation Preservation Fertility Procedure Ordered: 10/11/2023 documented as of this encounter Visit Diagnoses Diagnosis Counseling For Fertility Preservation- Primary Preservation Fertility Procedure documented in this encounter
--- OUTSIDE RECORDS SUMMARY | 2023-10-19 07:40 | XMS_ITS ---
Author Organization [facility] Address [address] [place] [address] Care Team Providers Care Physics Teacher Name Role Phone Unavailable Unavailable Unavailable Surgery Details Not on file Complications Check Surgery Details section. Procedure Estimated Blood Loss Check Surgery Details section. Procedure Findings Check Surgery Details section. Procedure Specimens Taken Check Surgery Details section.
--- OUTSIDE RECORDS SUMMARY | 2023-10-19 07:40 | XMS_ITS | Encounter Summary ---
Author Organization [facility] Address [address] [place] [address] Care Team Providers Care Philosophy Instructor Name Role Phone Unavailable Primary Care Provider Unavailabl e Reason for Referral * Outpatient (Routine) - Pending Review Specialty Diagnoses / Procedures Referred By Lois chung Referred To Contact Obstetrics and Gynecology Diagnoses Malignant Neoplasm Of Breast Lower Inner Quadrant Female Right (HCC) Edelmira Maharaj M.D. [address] [place] [address] [facility] Referral ID Status Reason Start Date Expiration Date V isits Requested Visits Authorized [id number] Pending Review 10/11/2023 04/11/2025 1 1 Encounter Details Date Type Department Care Team (Late st Contact Info) Description 10/11/2023 Orders Only Department of Oncology in [place], [place] [address] [place] [phone] Edelmira Maharaj M.D. [address] [place] [phone] Malignant Neoplasm Of Breast Lower Inner Quadrant Female Right (HCC) (Primary Dx) Social History Tobacco Use Types Packs/Day Years [...] your living situation today? I have a [facility] place to live 10/15/2023 Sex and Gender Information Value Date Recorded Sex Assigned at Female 10/15/2023 7:08 PM CDT Gender Identity Female 10/15/2023 7:08 PM CDT Sexual Orientation Straight 10/15/2023 7: 08 PM CDT documented as of this encounter Plan of Treatment Scheduled Referrals Name Type Priority Associated Diagnoses Order Schedule Obstetrics and Gynecology - Reproductive endocrinology and infertility consult (clinic) Outpatient Referral Routine Malignant Neoplasm Of Breast Lower Inner Quadrant Female Right (HCC) Expected: 10/18/2023, Expires: 01/10/2025 documented as of this encounter Visit Diagnoses Diagnosis Malignant Neoplasm Of Breast Lower Inner Quadrant Female Right (HCC)- Primary documented in this encounter
--- OUTSIDE RECORDS SUMMARY | 2023-10-19 07:40 | XMS_ITS | Encounter Summary ---
Author Organization [facility] Address [address] [place] [id number] Care Team Providers Care Secondary Social Studies Teacher Name Role Phone Unavailable Primary Care Provider Unavailabl e Reason for Visit * Outpatient (Routine) - Pending Review Specialty Diagnoses / Procedures Referred By Lois chung Referred To Contact Obstetrics and Gynecology Diagnoses Malignant Neoplasm Of Breast Lower Inner Quadrant Female Right (HCC) Edelmira Maharaj M.D. [address] [place] [address] [facility] Referral ID Status Reason Start Date Expiration Date V isits Requested Visits Authorized [id number] Pending Review 10/11/2023 04/11/2025 1 1 Encounter Details Date Type Department Care Team (Late st Contact Info) Description 10/17/2023 1:30 PM CDT Telemedicine Department of Obstetrics and Gynecology in [place], [place] [address] [place] [phone] Daniela Vigil, IRAIDA, C.N.P., M.S. [address] [place] [phone] Malignant Neoplasm Of Breast Lower Inner Quadrant Female Right (HCC) (Primary Dx); Counseling Fertility Preservation Pre Cancer Therapy Social History Tobacco Use Types Packs/Day Years [...] your living situation today? I have a [facility] place to live 10/15/2023 Sex and Gender Information Value Date Recorded Sex Assigned at Female 10/15/2023 7:08 PM CDT Gender Identity Female 10/15/2023 7:08 PM CDT Sexual Orientation Straight 10/15/2023 7: 08 PM CDT documented as of this encounter Patient Instructions * Patient Instructions* Daniela Vigil APRN, C.N.P., M.S. - 10/17/2023 1:30 PM CDT documented in this encounter Plan of Treatment Not on file documented as of this encounter Visit Diagnoses Diagnosis Malignant Neoplasm Of Breast Lower Inner Quadrant Female Right (HCC)- Primary Counseling Fertility Preservation Pre Cancer Therapy documented in this encounter Additional Health Concerns Assessment Noted Time PHQ-9 Depression Total Score: 2 10/15/19 24 7:07 PM CDT documented as of this encounter
--- OUTSIDE RECORDS SUMMARY | 2023-10-19 07:40 | XMS_ITS | Referral Summary ---
Author Organization [facility] Address [address] [place] [address] Care Team Providers Care Technical Support Associate Name Role Phone Unavailable Primary Care Provider Unavailabl e Source Comments Patient records contain information from all sites at [facility]. For routine questions regarding patient records, call [phone] during business hours, M-F 8:00 AM - 5:00 PM Central Time. Record requests for emergency care only can be directed to [phone] at any time.[facility] Encounters Date Type Department Care Team Description 10/17/2023 1:30 PM CDT Telemedicine Department of Obstetrics and Gynecology in [place], [place] [address] [place] [address] Daniela Vigil, IRAIDA, C.N.P., M.S. 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 10/11/2023 Orders Only Department of Oncology in [place], [place] [address] [place] [phone] Edelmira Maharaj M.D. Counseling For Fertility Preservation (Primary Dx); Preservation Fertility Procedure from Last 3 Months Allergies No known active allergies Medications Medication Sig Dispensed Refills Start Date End Date Status Estarylla 0.25-35 mg-mcg per tablet Take 1 tablet by mouth daily. Active Active Problems No known active problems Social History Tobacco Use Types Packs/Day Years [...] your living situation today? I have a [facility] place to live 10/15/2023 Sex and Gender Information Value Date Recorded Sex Assigned at Female 10/15/2023 7:08 PM CDT Gender Identity Female 10/15/2023 7:08 PM CDT Sexual Orientation Straight 10/15/2023 7: 08 PM CDT Plan of Treatment Not on file
--- OUTSIDE RECORDS SUMMARY | 2023-10-19 07:40 | XMS_ITS | Encounter Summary ---
Author Organization [facility] Address [address] [place] [address] Care Team Providers Care Application Processor Name Role Phone Unavailable Primary Care Provider Unavailabl e Encounter Details Date Type Department Care Team (Late st Contact Info) Description 10/11/2023 Orders Only Department of Oncology in [place], [place] [address] [place] [phone] Edelmira Maharaj M.D. [address] [place] [phone] Social History Tobacco Use Types Packs/Day Years [...] your living situation today? I have a [facility] place to live 10/15/2023 Sex and Gender Information Value Date Recorded Sex Assigned at Female 10/15/2023 7:08 PM CDT Gender Identity Female 10/15/2023 7:08 PM CDT Sexual Orientation Straight 10/15/2023 7: 08 PM CDT documented as of this encounter Plan of Treatment Not on file documented as of this encounter Visit Diagnoses Not on filedocumented in this encounter
--- OUTSIDE RECORDS SUMMARY | 2023-10-19 07:41 | XMS_ITS | Clinical Summary ---
Author Organization [employer] [facility] Address [place], [place] [address] Care Team Providers Care Freight And Passenger Agent Name Role Phone Kareen Gan MD Primary Care Provider Allergies No known active allergies Medications Medication Sig Dispensed Refills Start Date End Date Status norgestimate-ethinyl estradiol, 0.25-35 mg-mcg, (ORTHO-CYCLEN) 0.25-35 mg-mcg tabletIndications:OCP (oral contraceptive pills) initiation Take 1 Tablet by mouth once daily. 84 Tablet 3 12/21/2022 Active Active Problems Problem Noted Date Diagnosed Date HTN (hypertension) 08/23/2023 Prediabetes 03/10/2022 Resolved Problems Problem Noted Date Diagnosed Date Resolved Date Diet controlled gestational diabetes mellitus (GDM) in third trimester 08/11/2022 08/23/2023 Advanced maternal age, primi , third trimester 07/28/2022 08/23/2023 Primigravida of advanced mat ernal age in second trimester 06/02/2022 08/23/2023 Chronic hypertension affecting 05/05/2022 08/23/2023 02/23/2022 08/23/2023 Overview: Problem List: 1) Pregestational prediabetes. Hgb A1c 5.8 with labs 2) AMA. Normal Level 2 US and NIPT 3) Family hx of prematurity. Pt born at ~28 wks, sister with delivery x2 4) Chronic HTN - needs baseline Pre-E labs, growth at 28 and 34 weeks, weekly BPP/NST starting at 32 weeks, delivery at 39 wks if no antihypertensives, low dose ASA. Blood pressures have been normal. Labs with pre-existing elevated Pr/Cr 0.8, normal 24 hour urine 5) GDM - based on GCT of 202. Started bedtime levemir 10 units 08/23 based on elevated morning fasting sugars. Changed to NPH, current dose 18 units nightly. Sugars well-controlled 6) macrosomia - EFW 90th percentile at 36 weeks 7) COVID-19 during at 29 weeks. Mild symptoms. Received Paxlovid. IONA Campbell. 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 Patient's last menstrual period was 01/05/2022 (exact date). GBS- Last Tdap- 06/28/16 Last Flu vaccine- none Glucose (GTT) result- OB labs: Recent Labs 03/07/22 0920 03/07/22 0917 HGB 13.8 -- ABORH O Rh Positive -- RCBANTIBODY Negative -- TREPONEPALLI Negative -- RUBELLAIGG 12.40 Positive -- HBSAG Negative -- HEPCABY <0.1 Comment -- [id number] Non Reactive -- CHLAMYDIAPRB -- Negative NGONORRPROBE -- Negative No Known Allergies OB History Para Term AB Living 1 0 0 0 0 0 SAB IAB Ectopic Multiple Live Births 0 0 0 0 0 # Outcome Date GA Lbr Christopher/2nd Weight Sex Delivery Anes PTL Lv 1 Current Past Medical History: . Date No Significant Past Medical History Varicella as child Past Surgical History: . Laterality Date NO PAST SURGERIES No data on file. #1 Problems (from 02/23/22 to present) No problems associated with this episode. Nancy Calabrese RN ....03/03/2022 4:11 PM Encounters Date Type Department Care Team Description 10/18/2023 8:00 AM CDT Ancillary Procedure [facility] [address] [place] [address] Arrived 10/18/2023 Telephone [facility] [address] [place] [address] Kareen Gan MD Referral 10/12/2023 Telephone [facility] [address] [facility] [place] [id number] Chula Restrepo MD Procedure 10/12/2023 Transcribe Orders [facility] [address] [facility] [place] [id number] Chula Restrepo MD 10/10/2023 Orders Only [facility] [address] [place] [id number] Kareen Gan MD 1 scan: (1-Ord) [place], [place] GUIDED BREAST BIOPSY LEFT, 10/09/2023 10/09/2023 Orders Only [facility] Scanner 1 scan: (1-Ord) [place], US GUIDED BREAST BIOPSY LT, 10/09/2023 10/09/2023 Orders Only [facility] Scanner 1 scan: (1-Ord) [place], BIOPSY LYMPH AXILLARY, 10/09/2023 10/09/2023 Orders Only [facility] Scanner 1 scan: (1-Ord) NICK MM CLIP PLACEMENT LT, 10/09/2023 10/09/2023 Orders Only [facility] Scanner 1 scan: (1-Ord) NICK MM CLIP PLACEMENT RT, 10/09/2023 10/09/2023 Orders Only [facility] Scanner 1 scan: (1-Ord) [facility], US BX AXILLARY LYMPH NODE, 10/09/2023 10/09/2023 Lab Requisition [facility] [phone] Unknown, Doctor 10/09/2023 Lab Requisition [facility] [phone] Unknown, Doctor 10/06/2023 10:00 AM CDT Telemedicine [facility] [address] [place] [address] Valentina Jhaveri MS, [facility] Counseling (Cancer genetic counseling); Telehealth 10/06/2023 Travel 10/05/2023 Telephone [facility] [address] [place] [address] [facility] 10/03/2023 3:00 PM CDT Office Visit [facility] [address] [facility] [place] [id number] Chula Restrepo MD Consult (Breast cancer) 10/03/2023 Travel 09/27/2023 Orders Only [facility] Scanner 1 scan: (1-Ord) [facility], BREAST BI WO/W CON, 09/27/2023 09/21/2023 Orders Only [facility] [address] [facility] [place] [id number] Kareen Gan MD 1 scan: (1-Ord) [facility], MM CLIP PLACEMENT RT, 09/20/2023 09/20/2023 Orders Only [facility] Scanner 1 scan: (1-Ord) [place], BREAST BX, 09/20/2023 09/20/2023 Lab Requisition [facility] [phone] Kareen Gan MD 09/13/2023 3:15 PM CDT Ancillary Procedure [facility] [address] [facility] [place] [id number] 09/13/2023 2:30 PM CDT Ancillary Procedure [facility] [address] [facility] [place] [id number] 09/13/2023 Travel 08/23/2023 1:05 PM CDT Office Visit [facility] [address] [facility] [place] [id number] Kareen Gan MD Breast Problem (1 and a half weeks, lump has gotten smaller) 08/23/2023 Travel from Last 3 Months Immunizations Name Administration Dates Next Due COVID-19 vaccine (Springshot 30mcg/0.3mL) LAURYN De Leon 01/27/2021,01/04/2021 DTP 03/21/1990 MMR 04/08/1992,03/21/1990 Oral Polio Vaccine 03/21/1990 Tdap 08/11/2022,06/28/2016 Family History Medical History Relation Name Comments Kidney disease Father at 6 5 COPD Mother smoker Cancer-breast Paternal Aunt x2 Cancer-colon Paternal Uncle Good Health Sister 1 No Known Problems Sister 2 Anesthesia Malignant Hyperthermia No Family History Blood Disease No Family History Cancer-ovarian No Family History Premature CHD (under age 60) No Family History Relation Name Status Comments Father Mother Alive Other Paternal Aunt Paternal Uncle Sister 1 Alive Sister 2 Alive Social History Tobacco Use Types Packs/Day Years Used Date Smoking Tobacco: Never Smokeless Tobacco: Never Tobacco Cessation:Counseling Given: Yes Alcohol Use Standard Drinks/Week Comments Yes 2 (1 standard drink = 0.6 oz pur e alcohol) PHQ-2 Answer Date Recorded PHQ-2 TOTAL SCORE 0 12/21/2022 Social Connections Answer Date Recorded Frequency of Communication with Friends and Fami ly Not on file 10/09/2023 Financial Resource Strain Answer Date R ecorded Difficulty of Paying Living Expenses 3 10/07/2022 Difficulty of Paying Living Expenses Not on file 10/07/2022 Food Insecurity Answer Date Recorded Worried About Running Out of Food in the Last Ye ar 1 10/07/2022 Transportation Needs Answer Date Record ed Lack of Transportation (Medical) 1 10/07/2022 Housing Stability Answer Date Recorded Unable to Pay for Housing in the Last Year 1 10/07/2022 Sex and Gender Information Value Date Recorded Sex Assigned at Not on file Gender Identity Not on file Sexual Orientation Not on file Obstetrics History Para Term AB IAB SAB Ectopic Multiple Livin g Live Births 1 1 1 0 0 0 0 0 0 1 1 Date Outcome GA Total Labor Labor/2nd/3rd Weight Sex Type Anes PTL [place] A1 A5 Name Clin 2022 Term 39w 1d C-Sec tion Living Last Filed Vital Signs Vital Sign Reading Time Taken Comments Blood Pressure 131/93 10/03/2023 3:02 PM CDT tow er Pulse 91 10/03/2023 3:02 PM CDT Temperature 36.4 ??C (97.6 ??F) 07/13/2021 4:31 AM CD T Respiratory Rate 16 07/13/2021 4:31 AM CDT Oxygen Saturation 100% 10/03/2023 3:02 PM CDT Inhaled Oxygen Concentration - - Weight 69.6 kg (153 lb 5.8 oz) 08/23/2023 1:04 P M CDT Height 160 cm (5' 3) 06/16/2022 12:35 PM CDT Body Mass Index 27.17 06/16/2022 12:35 PM CDT Plan of Treatment Upcoming Encounters Date Type Department Care Team (Late st Contact Info) Description 10/19/2023 10:00 AM CDT Office Visit [facility] at [facility] [address] [place] [phone] Chula Restrepo MD [address] [place] [address] Health Maintenance Due Date Last Done Comments Pneumococcal series for age 6-64 (1 of 2 - PCV) 1992 COVID-19 vaccine series (3 - Pfizer risk series) 02/24/2021 01/27/2021, 01/04/2021 BMI (ht and wt on same day) for age 18+ 06/17/2023 06/16/2022, 03/10/2022, 01/04/2021, Additional history exists Influenza for age 9-49 10/29/2023 Depression screening for age 12+ 12/22/2023 12/21/2022, 04/07/2022, 01/04/2021, Additional history exists Pap test for age 21-65 01/04/2026 , 01/04/2021, 08/01/2016, Additional history exists Tetanus booster 08/11/2032 08/11/2022, 06/28/2016 HIV for age 15-65 Completed 03/07/2022 Hepatitis C screening for ag e 18-79 Completed 03/07/2022 Tdap Completed 08/11/2022, 06/28/2016 Procedures Procedure Name Priority Date/Time Associated Diagnosis Comments ECHO TTE COMPLETE WO CONTRAST Routine 10/18/2023 8:34 AM CDT Encounter for therapeutic drug level monitoring LAB TRACKING EVENT Routine 10/09/2023 11 :50 AM CDT PATH BREAST CORE BIOPSY Routine 10/09/2023 11:50 AM CDT US BIOPSY BREAST NEEDLE W ELVIA W GUIDE RIGHT ANITHA 10/09/2023 12:00 AM CDT Mass of right breast, unspecified quadrant SCAN-OPERATIVE/PROCEDU RE REPORT 10/09/2023 12:00 AM CDT SCAN-OPERATIVE/PROCEDU RE REPORT 10/09/2023 12:00 AM CDT SCAN-OPERATIVE/PROCEDU RE REPORT 10/09/2023 12:00 AM CDT SCAN-OPERATIVE/PROCEDU RE REPORT 10/09/2023 12:00 AM CDT SCAN-OPERATIVE/PROCEDU RE REPORT 10/09/2023 12:00 AM CDT SCAN-MRI INTERPRETATION 09/27/2023 12:00 AM CDT LAB TRACKING EVENT Routine 09/20/2023 10 :24 AM CDT PATH BREAST CORE BIOPSY Routine 09/20/2023 10:24 AM CDT XR MAMMO POST CLIP PLCMT RT Routine 09/20/2023 12:00 AM CDT Mass of right breast, unspecified quadrant SCAN-OPERATIVE/PROCEDU RE REPORT 09/20/2023 12:00 AM CDT US BREAST BILATERAL LIMITED Routine 09/13/2023 2:51 PM CDT Mass of right breast, unspecified quadrant XR MAMMO CHEVY BILAT DIAG Routine 09/13/2023 2:41 PM CDT Mass of right breast, unspecified quadrant LC HIV-1/O/2, 4TH GENERATION Routine 03/07/2022 9:20 AM SHELVER Encounter for supervision of normal first in first trimester LC HCV ANTIBODY RFX TO QUANT PCR Routine 03/07/2022 9:20 AM SHELVER Encounter for supervision of normal first in first trimester HPV THIN PREP Routine 01/04/2021 11:34 AM SHELVER Pap smear for cervical cancer screening from Last 3 Months or Most Recently Relevant to Health Maintenance Results * ECHO TTE COMPLETE WO CONTRAST (10/18/2023 8:34 AM CDT) AORTIC VALVE MEAN PG 7 mmHg EJECTION FRACTION 64 % LVEDD 5.1 cm Anatomical Region Laterality Modality Ultrasound 10/18/2023 8:06 AM CDT Narrative 10/18/2023 9:10 AM CDT ECHOCARDIOGRAM CANDY SCOTT ? Accession#: ?? [id number] : ?1985 38 years Study Date: ?? 10/18/2023 8:06:40 AM Gender: F ?BP: ? 123/80 mmHg Height: 155.00 cm ?BSA: ?1.69 m? ? ? Weight: 70.00 kg ? Tech: ? MJW ? Referring MD: ADOLPH WEAVER Site: ? [facility] Reading Location: Mobile-OP Patient Location: Outpatient. Procedure: 2D, Color Doppler and Spectral Doppler. Indication for study: Pre Encounter for therapeutic drug level monitoring Cardiac Rhythm: Regular.Study quality: Excellent. Final Impressions: 1. Normal left ventricular size, normal wall thickness, normal global systolic function, calculated EF of 64 %. 2. Mildly enlarged left atrium. 3. No significant valve disease detected. Comparison There are no prior studies on this patient for comparison purposes. Chamber Sizes and Function Normal left ventricular size, normal wall thickness, normal global systolic function, calculated EF of 64 %. Left atrial size is mildly enlarged. Right ventricular cavity size is normal, global systolic RV function is normal. RV wall thickness is normal. The right atrium is normal. Right atrial volume index is 16 ml/m? ? ?. Right atrial area is 13 cm? ? ?. The pulmonary artery is of normal size and origin. The sinus of Valsalva is normal sized. The ascending aorta is normal sized. Valves, RV Pressures and Diastolic Function The aortic valve is trileaflet, no stenosis and no regurgitation. The mitral valve is normal in structure, no mitral regurgitation. Normal diastolic function. The tricuspid valve is normal in structure. Tricuspid regurgitation is trace regurgitation. The pulmonic valve is normal. No pulmonary regurgitation. Masses, Effusion, Shunts There is no pericardial effusion. The inferior vena cava is normal sized, respiratory size variation greater than 50%. No left to right shunting was detected by limited color flow Doppler interrogation of the interatrial septum. MEASUREMENTS AND CALCULATIONS 2-D Measurements and LV Function: LVID (d) 5.1 cm Planimetered EF 64 % LVID (s) 3.6 cm LV FS% (2D) ? 30 % IVS (d) ??0.6 cm LVOT diameter ?? 2.0 cm LVPW (d) 0.7 cm HR ?80 bpm Ao Sinus 2.8 cm LA Vol index ?39 ml/m2 Asc Ao ?? 2.7 cm RA Vol index ?16 ml/m2 LA ? 3.9 cm RA area ? 13 cm?RV Max 4C (d) ?? 3.7 cm Diastology: Mitral ?Tissue Doppler E Peak 0.9 m/s ??e', Septum ? 0.14 m/s A Peak 0.7 m/s ??e', Lateral ?0.20 m/s E/A ?1.3 ?E/e' Average ?? 5.24 DT ? 246 msec Aortic Valve: Vmax ? 1.7 m/s ??OVIDIO (V) ?? 2.91 cm? ? ? VTI ?0.36 m ?? OVIDIO (I) ?? 3.03 cm? ? ? LVOT V max ? 1.6 m/s ??Max PG ?12 mmHg LVOT VTI ? 0.34 m ?? Mean PG ?? 7 mmHg SV ? 108 ml ?? Dim Index 0.96 SV index ? 64 ml/m? ? ? CO ?8.6 l/min AV Ejection Time 0.30 sec CI ?5.1 l/min/m? ? ? AV Flow Rate ? 359 ml/s Mitral Valve: MVA ?3.1 cm? ? ? MV P 1/2 71 msec Tricuspid Valve and estimated PA pressures: TAPSE 2.6 cm Pulmonic Valve: PV AT 118 msec . This study was interpreted by an [facility] accredited facility. ??Final ?? Procedure Note Vladimir Darby MD - 10/18/2023 ECHOCARDIOGRAM CANDY SCOTT : 1985 38 years Study Date: 10/18/2023 8:06:40 AM Gender: F BP: 123/80 mmHg Height: 155.00 cm BSA: 1.69 m? ? ? Weight: 70.00 kg Tech: MISHA Referring MD: ADOLPH WEAVER Site: [facility] Reading Location: Mobile-OP Patient Location: Outpatient. Procedure: 2D, Color Doppler and Spectral Doppler. Indication for study: Pre Encounter for therapeutic drug levelmonitoring Cardiac Rhythm: Regular.Study quality: Excellent. Final Impressions: 1. Normal left ventricular size, normal wall thickness, normal globalsystolic function, calculated EF of 64 %. 2. Mildly enlarged left atrium. 3. No significant valve disease detected. Comparison There are no prior studies on this patient for comparison purposes. Chamber Sizes and Function Normal left ventricular size, normal wall thickness, normal globalsystolic function, calculated EF of 64 %. Left atrial size is mildlyenlarged. Right ventricular cavity size is normal, global systolic RVfunction is normal. RV wall thickness is normal. The right atrium isnormal. Right atrial volume index is 16 ml/m? ? ?. Right atrial area is 13cm? ? ?. The pulmonary artery is of normal size and origin. The sinus ofValsalva is normal sized. The ascending aorta is normal sized. Valves, RV Pressures and Diastolic Function The aortic valve is trileaflet, no stenosis and no regurgitation. Themitral valve is normal in structure, no mitral regurgitation. Normaldiastolic function. The tricuspid valve is normal in structure. Tricuspidregurgitation is trace regurgitation. The pulmonic valve is normal. Nopulmonary regurgitation. Masses, Effusion, Shunts There is no pericardial effusion. The inferior vena cava is normal sized,respiratory size variation greater than 50%. No left to right shunting wasdetected by limited color flow Doppler interrogation of the interatrialseptum. MEASUREMENTS AND CALCULATIONS 2-D Measurements and LV Function: LVID (d) 5.1 cm Planimetered EF 64 % LVID (s) 3.6 cm LV FS% (2D) 30 % IVS (d) 0.6 cm LVOT diameter 2.0 cm LVPW (d) 0.7 cm HR 80 bpm Ao Sinus 2.8 cm LA Vol index 39 ml/m2 Asc Ao 2.7 cm RA Vol index 16 ml/m2 LA 3.9 cm RA area 13 cm? ? ? RV Max 4C (d) 3.7 cm Diastology: Mitral Tissue Doppler E Peak 0.9 m/s e', Septum 0.14 m/s A Peak 0.7 m/s e', Lateral 0.20 m/s E/A 1.3 E/e' Average 5.24 DT 246 msec Aortic Valve: Vmax 1.7 m/s OVIDIO (V) 2.91 cm? ? ? VTI 0.36 m OVIDIO (I) 3.03 cm? ? ? LVOT V max 1.6 m/s Max PG 12 mmHg LVOT VTI 0.34 m Mean PG 7 mmHg SV 108 ml Dim Index 0.96 SV index 64 ml/m? ? ? CO 8.6 l/min AV Ejection Time 0.30 sec CI 5.1 l/min/m? ? ? AV Flow Rate 359 ml/s Mitral Valve: MVA 3.1 cm? ? ? MV P 1/2 71 msec Tricuspid Valve and estimated PA pressures: TAPSE 2.6 cm Pulmonic Valve: PV AT 118 msec . This study was interpreted by an [facility] accredited facility. Final Adolph Weaver MD ECHO ORD * LAB TRACKING EVENT (10/09/2023 11:50 AM CDT) Only the most recent of2 resultswithin the time period is included. Other (Other) Client Collect / Unknown 10/09/2023 11:50 AM CDT 10/09/2023 10:50 PM CDT Doctor Unknown LAB BILL ONLY [facility] [address] [place] [address], * PATH BREAST CORE BIOPSY (10/09/2023 11:50 AM CDT) Only the most recent of2 resultswithin the time period is included. Case Report Pathology Report ?Case: [id number] ? Authorizing Provider: ??Unknown, Doctor ?Collected: ? 10/09/2023 1150 ? Ordering Location: ? [facility] ?Received: ?10/10/2023 0937 ? Pathologist: ? Beata Langley MD ? Specimens: ?? A) - Left Breast Core Ultrasound Biopsy ? B) - Right Breast Core Ultrasound Biopsy ? 10/11/2023 8:56 AM T [facility] LAB[facility] Final Diagnosis A) LEFT BREAST, RETROAREOLAR, 1 CM FROM NIPPLE, MIDDLE DEPTH, ULTRASOUND-GUIDE D CORE BIOPSY: 1. Fibroadenoma 2. Negative for atypia and malignancy B) RIGHT AXILLA, LYMPH NODE, ULTRASOUND-GUIDE D CORE BIOPSY: 1. Fragments of benign lymph node 2. Negative for metastatic carcinoma in this sampling 10/11/2023 8:56 AM [facility]-C ENTRAL LABORATORY Comment These are image-guided breast biopsies. The pathologic findings should be correlated with radiologic and clinical findings prior to treatment decisions. Case seen in consultation with Dr. 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 Cold ischemic time: Less than 60 minutes, meets current ASCO/CAP guidelines. ?? The specimen was fixed in formalin for a minimum of 6 hours and not longer than 72 hours. B) Label: Patient's name and right axillary lymph node Description: Fibrofatty core biopsies Size: 1.0 x 0.9 x 0.1 cm (aggregate) Ink color: Blue The specimen is submitted in toto in 1 cassette(s). Cold ischemic time: Less than 60 minutes, meets current ASCO/CAP guidelines. ?? The specimen was fixed in formalin for a minimum of 6 hours and not longer than 72 hours. [facility] 10/10/2023 10/11/2023 8:56 AM CDT [facility] Microscopic Description The final diagnosis is based on microscopic examination of appropriate sections of all specimens A) The presence of black ink is confirmed on tissue sections. B) The presence of blue ink is confirmed on tissue sections. 10/11/2023 8:56 AM CDT [facility] LABORAT[facility]-C ENTRAL LABORATORY Additional Information Interpreted at [facility], Central Laboratory - [address] [place] [address] S[facility] [address], [place] [address] 10/11/2023 8:56 AM CDT [facility] LABORAT[facility]- ENTRAL LABORATORY Other (Left Breast Core Ultrasound Biopsy) 10/09/2023 11:50 AM CDT 10/10/2023 9:37 AM CDT Specimen (specimen) (Right Breast Core Ultrasound Biopsy) 10/09/2023 11:57 AM CDT 10/10/2023 9:51 AM CDT Doctor Unknown PATHOLOGY/CYTOLOGY Performing Organization Address City/State/[facility] Co de Phone Number [facility] [address] [place] [address], [place] * US BIOPSY BREAST NEEDLE W ELVIA W GUIDE RIGHT (10/09/2023 12:00 AM CDT) Anatomical Region Laterality Modality Breast Right Right Ultrasound Kareen Gan MD US * SCAN-OPERATIVE/PROCEDURE REPORT (10/09/2023 12:00 AM CDT) Scanner OTHER * SCAN-OPERATIVE/PROCEDURE REPORT (10/09/2023 12:00 AM CDT) Scanner OTHER * SCAN-OPERATIVE/PROCEDURE REPORT (10/09/2023 12:00 AM CDT) Scanner OTHER * SCAN-OPERATIVE/PROCEDURE REPORT (10/09/2023 12:00 AM CDT) Scanner OTHER * SCAN-OPERATIVE/PROCEDURE REPORT (10/09/2023 12:00 AM CDT) Scanner OTHER * SCAN-MRI INTERPRETATION (09/27/2023 12:00 AM CDT) Anatomical Region Laterality Modality Other Scanner OTHER * XR MAMMO POST CLIP PLCMT RT (09/20/2023 12:00 AM CDT) Anatomical Region Laterality Modality BREASTS N/A Mammography Kareen Gan MD MAMMO * SCAN-OPERATIVE/PROCEDURE REPORT (09/20/2023 12:00 AM CDT) Scanner OTHER * US BREAST BILATERAL LIMITED (09/13/2023 2:51 PM CDT) Anatomical Region Laterality Modality BREASTS, Breast Left, Breast Right Bilateral Ultrasound Narrative 09/14/2023 2:10 PM CDT For Patients: As a result of the Century Cures Act, medical imaging exams and procedure reports are released immediately into your electronic medical record. ??You may view this report before your referring provider. ?? If you have questions, please contact your health care provider. BILATERAL BREAST ULTRASOUND, 09/13/2023 PLEASE SEE [id number] FOR DIGITAL BILATERAL MAMMOGRAM SAME DAY. Kareen Gan MD US * XR MAMMO CHEVY BILAT DIAG (09/13/2023 2:41 PM CDT) Anatomical Region Laterality Modality BREASTS, Breast Left, Breast Right Bilateral Mammography 09/13/2023 4:07 PM CDT Impressions 09/14/2023 2:10 PM CDT Suspicious mass RIGHT breast 6 o'clock 1 cm from the nipple measuring 1.1 cm. RECOMMENDATIONS: Ultrasound-guided core needle biopsy RIGHT breast. Results and recommendations discussed with the patient. BI-RADS Category 4: Suspicious Dictated by: Vladimir Trujillo MD @09/13/2023 4:07:30 PM / CRL:jj PATIENTS: You will also receive a letter with your examination results in an easy to read format. ??If you have questions about your results, please contact your referring provider. Narrative 09/14/2023 2:10 PM CDT For Patients: As a result of the Century Cures Act, medical imaging exams and procedure reports are released immediately into your electronic medical record. ??You may view this report before your referring provider. ?? If you have questions, please contact your health care provider. DIGITAL DIAGNOSTIC BILATERAL MAMMOGRAM USING TOMOSYNTHESIS AND COMPUTER-AIDED DETECTION, 09/13/2023 BILATERAL BREAST ULTRASOUND, 09/13/2023 CLINICAL HISTORY: RIGHT breast lump. COMPARISON: None TECHNIQUE: Digital BILATERAL mammogram in four projections with computer-aided detection. Tomosynthesis was used in this interpretation. Real-time ultrasound imaging of BILATERAL breast with imaging documentation. Scanning was performed by both the technologist and the radiologist. BREAST COMPOSITION: The breasts are heterogeneously dense, which may obscure small masses. FINDINGS: 3D CC/MLO BILATERAL mammogram images submitted. Unremarkable RIGHT breast mammogram. Asymmetric density 12 o'clock LEFT breast. Targeted RIGHT breast ultrasound performed in the area of concern at 6 o'clock 1 cm from the nipple performed. There is a hypoechoic solid mass with irregular margins measuring 1.1 x 1.1 x 1.0 cm. No axillary adenopathy. Targeted LEFT breast ultrasound performed at 12 o'clock 4 cm from the nipple. Normal dense fibroglandular tissue. Kareen Gan MD MAMMO * LC HCV ANTIBODY RFX TO QUANT PCR (03/07/2022 9:20 AM SHELVER) HCV Ab <0.1 0.0 - 0.9 s/co ratio 03/11/2022 4:07 AM SHELVER [facility] TEST[facility] (CET) Blood BLOOD SPECIMEN / Unknown Venipuncture / Unknown 03/07/2022 9:20 AM SHELVER 03/07/2022 9:[address] [facility] FOR ESOTERIC TESTING (CET) - 03/11/2022 4:07 AM SHELVER Performed at: ??[address] - [address] ??[id number] Target Aircraft Technician: Mihir Sauer MD, Phone: ??[phone] Kareen Gan MD LABORATORY Performing Organization Address [facility] Co de Phone Number [facility] ESOTERIC TESTING (CET) [address] [place] [address] * LC HIV-1/O/2, 4TH GENERATION (03/07/2022 9:20 AM SHELVER) Pathologist [facility] HIV Scr 4th Gen Non Reactive Non Reactive 03/09/2022 10:06 PM SHELVER [facility]IC TEST[facility] ([facility]) Comment: HIV Negative HIV-1/HIV-2 antibodies and HIV-1 p24 antigen were NOT detected. There is no laboratory evidence of HIV infection. Blood BLOOD SPECIMEN / Unknown Venipuncture / Unknown 03/07/2022 9:20 AM SHELVER 03/07/2022 9:24 AM SHELVER [facility] ESOTERIC TESTING (CET) - 03/09/2022 10:06 PM SHELVER Performed at: ??01 - [address] ??[id number] Target Aircraft Technician: Mihir Sauer MD, Phone: ??[phone] Kareen Gan MD LABORATORY Performing Organization Address [facility] Co de Phone Number [facility] TEST[facility] (CET) [address] [place] [address] * HPV HIGH RISK (01/04/2021 11:34 AM SHELVER) TYPE 16 Negative Negative 01/08/2021 2:06 PM SHELVER [facility] TYPE 18 Negative Negative 01/08/2021 2:06 PM SHELVER [facility] TRAL LABORATORY OTHER HIGH RISK TYPES Negative Negative 01/08/2021 2:06 PM SHELVER [facility] LABORATORY Other (Cervical) Non-Blood / Unknown 01/04/2021 11:34 AM SHELVER 01/04/2021 4:55 PM SHELVER Narrative [facility] LABORATORY - 01/08/2021 2:06 PM SHELVER HPV types 16, 18, 31, 33, 35, 39, 45, 51, 52, 56, 58, 59, 66 and 68 DNA were undetectable or below the pre-set threshold. Methodology: John Thuan 4800 HPV Test Little [facility] LABORATORY [address] [place] [address], from Last 3 Months or Most Recently Relevant to Health Maintenance Care Teams Freight And Passenger Agent Relationship Specialty Start Date End Date Kareen Gan MD [address] [place] [address] PCP - General Family Practice 02/23/22
[2023-10-19] MEDS: LACTATED RINGERS 1000 ML 1,000 ML 100 ML IV (07:45)
[2023-10-19] MEDS: SODIUM CHLORIDE 0.9 % (FLUSH) 10 ML SYRINGE IVF (07:50)
[2023-10-19 07:55] VITALS: BP 124/82; PULSE 79; RESP 16; TEMP 36.5; O2SAT 98; BMI 28.3
[2023-10-19 08:07] LABS: Ur HCG Qualitative* Negative (Negative)
--- NOTE | 2023-10-19 09:00 | CRLHL7_ITS ---
For Patients: As a result of the Century Cures Act, medical imaging exams and procedure reports are released immediately into your electronic medical record. You may view this report before your referring provider. If you have questions, please contact your health care provider. Indication: PATTI CATH PLACEMENT Technique: One fluoroscopic image of the upper chest. Fluoroscopic time 50.3 seconds. IMPRESSION: Fluoroscopic guidance for left-sided Port-A-Cath placement. Dictated by Vladimir Trujillo MD @ 10/19/2023 10:15:38 AM (Electronically Signed)
[2023-10-19] MEDS: CEFAZOLIN 1 GM inj IVP (09:03)
--- NOTE | 2023-10-19 09:07 | W.PM.H&PU ---
History & Physical Update History & Physical Update H&P Reviewed and patient assessed: No changes noted
--- NOTE | 2023-10-19 09:08 | P.GSOP_ITS ---
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 Indications: The patient is a 38-year-old female who was found to have a mass in her right breast. Biopsy showed this to be a triple negative invasive ductal carcinoma. Recommendations were for neoadjuvant chemotherapy. She presents today for port placement. Procedure Description: After discussing the risks and benefits of the procedure, the patient signed informed consent.? The operative site was marked and the patient was brought to the operating room and placed on the operating table in supine position.? Care was taken to pad the patient's pressure points.?? The patient was then given sedation by anesthesia.?? The operative site was then prepped and draped in the usual sterile fashion.? A time-out was then performed. The patient's left internal jugular vein was visualized using ultrasound. Local anesthetic was injected into the skin overlying the vein. This was accessed percutaneously using ultrasound guidance. Using Seldinger technique, a guidewire was threaded through the needle. Fluoroscopy confirmed the wire to be in the SVC. A skin nuvia was made around the wire. Next, local anesthetic was injected into the skin below the clavicle and along the proposed tract to the neck incision. A skin incision was then made with a 15 blade and a pocket created in the subcutaneous tissue with cautery. A tunneler was then used to thread the catheter from the chest wall pocket to the neck incision. Once this was done fluoroscopy was brought into the field. Over the wire the tract was dilated using fluoroscopy. The wire and the dilator were then removed leaving the sheath in the vein. Through this, the catheter was threaded. Using fluoroscopy, the catheter was positioned into the distal SVC. The catheter was noted to flush and aspirate easily. The catheter was then connected to the port. The port was placed in the pocket and secured in place with 2 0 Prolene sutures. It was noted to flush and aspirate easily. This was then locked with heparinized saline. The skin was closed with absorbable suture. Glue was appli ed. The patient was then woken and transported to the recovery area in stable condition. ? The patient tolerated the procedure well. Findings: Left IJ power port placed in the mid SVC Anesthesia: MAC Surgeon: Chula Restrepo MD Estimated blood loss (mL): 5 Condition: stable Disposition: same day
--- NOTE | 2023-10-19 09:16 | W.ANESCHARGE ---
Anesthesia Charges Start Date/Time Anesthesia Start Date: 10/19/23 Anesthesia Start Time: 08:51 Stop Date/Time Anesthesia Stop Date: 10/19/23 Anesthesia Stop Time: 09:59
[2023-10-19] MEDS: LIDOCAINE 1% MDV 20 ML INJECTION (09:19)
[2023-10-19] MEDS: BUPIVACAINE 0.5% 30 ML INJECTION (09:19)
[2023-10-19] MEDS: 0.9% SODIUM CHL 50 ML VIAL INJECTION (09:38)
[2023-10-19] MEDS: HEPARIN 500 UNIT/5 ML SYRINGE IVF (09:39)
--- NOTE | 2023-10-19 09:49 | CRLHL7_ITS ---
For Patients: As a result of the Century Cures Act, medical imaging exams and procedure reports are released immediately into your electronic medical record. You may view this report before your referring provider. If you have questions, please contact your health care provider. INDICATION: Chest port placement TECHNIQUE: 1 view chest radiograph COMPARISON: Intra procedural images from the same day FINDINGS: Devices: There is a left IJ approach chest port. The distal tip is at the superior cavoatrial junction. The port reservoir appears appropriately positioned between the 2nd and 3rd anterior left ribs. Lung volumes are moderate. No focal or diffuse opacities. No pleural effusion. No pneumothorax. Heart size is normal. IMPRESSION: Left-sided chest port is in radiographically good position. No complication seen. Dictated by Eileen Esposito MD @ 10/19/2023 10:20:00 AM (Electronically Signed)
[2023-10-19 09:57] VITALS: BP 98/62; PULSE 75; RESP 16; TEMP 36.5; O2SAT 97
[2023-10-19 10:00] VITALS: BP 103/75; PULSE 78; RESP 16; O2SAT 97
[2023-10-19 10:15] VITALS: BP 123/73; PULSE 72; RESP 16; O2SAT 100
[2023-10-19 10:30] VITALS: BP 125/75; PULSE 70; RESP 16; O2SAT 100
== END 2023-10-19 10:42 | disposition home or self-care (01) ==
PROVIDERS: Anesthesiology; PCP Family Medicine; Visit Provider Surgery
PROC: (CPT 36571; principal; 2023-10-19 09:00)
DX: Z45.2 Encounter for adjustment and management of vascular access device (principal); C50.911 Malignant neoplasm of unspecified site of right female breast; Z17.1 Estrogen receptor negative status [ER-]
CPT/HCPCS: 36571; 00532; 71045; 76998; 81025; C1788; J0665; J0690; J1100; J1642; J2250; J2405; J2704; J3010; J7120

== ENCOUNTER 2023-10-26 14:39 | Outpatient (CLI) | payer BC, SELFPAY ==
--- OUTSIDE RECORDS SUMMARY | 2023-10-26 14:44 | XMS_ITS | Clinical Summary ---
Author Organization [facility] Address [address] [place] [address] Care Team Providers Care Metal Machine Setter Name Role Phone Unavailable Primary Care Provider Unavailabl e Source Comments Patient records contain information from all sites at [facility]. For routine questions regarding patient records, call [phone] during business hours, M-F 8:00 AM - 5:00 PM Central Time. Record requests for emergency care only can be directed to [phone] at any time.[facility] Allergies No known active allergies Medications Medication Sig Dispensed Refills Start Date End Date Status Estarylla 0.25-35 mg-mcg per tablet Take 1 tablet by mouth daily. Active Active Problems No known active problems Encounters Date Type Department Care Team Description 10/17/2023 1:30 PM CDT Telemedicine Department of Obstetrics and Gynecology in [place], [place] [address] [place] [address] Daniela Vigil APRN, C.N.P., M.S. Malignant Neoplasm Of Breast Lower Inner Quadrant Female Right (HCC) (Primary Dx); Counseling Fertility Preservation Pre Cancer Therapy 10/11/2023 Orders Only Department of Oncology in [place], [place] [address] [place] [address] Edelmira Maharaj M.D. Malignant Neoplasm Of Breast Lower Inner Quadrant Female Right (HCC) (Primary Dx) 10/11/2023 Orders Only Department of Oncology in [place], [place] [address] [place] [address] Edelmira Maharaj M.D. 10/11/2023 Orders Only Department of Oncology in [place], [place] [address] [place] [address] Edelmira Maharaj M.D. Counseling For [...] your living situation today? I have a [facility] place to live 10/15/2023 Sex [...]
--- OUTSIDE RECORDS SUMMARY | 2023-10-26 14:44 | XMS_ITS ---
Author Organization [facility] Address [address] [place] [address] Care Team Providers Care Precision Assembler Bench Name Role Phone Unavailable Unavailable Unavailable Surgery Details Not on file Complications Check Surgery Details section. Procedure Estimated Blood Loss Check Surgery Details section. Procedure Findings Check Surgery Details section. Procedure Specimens Taken Check Surgery Details section.
--- OUTSIDE RECORDS SUMMARY | 2023-10-26 14:44 | XMS_ITS | Encounter Summary ---
Author Organization [facility] Address [address] [place] [address] Care Team Providers Care Pillowcase Sewer Name Role Phone Unavailable Primary Care Provider Unavailabl e Reason for Referral * Outpatient (Routine) - Authorized Specialty Diagnoses / Procedures Referred By Lois chung Referred To Contact Obstetrics and Gynecology Diagnoses Counseling For Fertility Preservation Preservation Fertility Procedure Edelmira Maharaj M.D. [address] [place] [address] [facility] Referral ID Status Reason Start Date Expiration Date V isits Requested Visits Authorized [id number] Authorized 10/11/2023 04/11/2025 1 1 Encounter Details Date Type Department Care Team (Late st Contact Info) Description 10/11/2023 Orders Only Department of Oncology in [place], [place] [address] [place] [phone] Edelmira Maharaj M.D. [address] [place] [phone] Counseling For Fertility Preservation (Primary Dx); Preservation [...] your living situation today? I have a [facility] place to live 10/15/2023 Sex and [...]
--- OUTSIDE RECORDS SUMMARY | 2023-10-26 14:44 | XMS_ITS | Referral Summary ---
Author Organization [facility] Address [address] [place] [address] Care Team Providers Care Air Traffic Control Equipment Repairer Name Role Phone Unavailable Primary Care Provider Unavailabl e Source Comments Patient records contain information from all sites at [facility]. For routine questions regarding patient records, call [phone] during business hours, M-F 8:00 AM - 5:00 PM Central Time. Record requests for emergency care only can be directed to [phone] at any time.[facility] Encounters Date Type Department Care Team Description 10/17/2023 1:30 PM CDT Telemedicine Department of Obstetrics and Gynecology in [place], [place] [address] [place] [address] Daniela Vigil, IRAIDA, C.N.P., M.S. Malignant Neoplasm Of Breast Lower Inner Quadrant Female Right (HCC) (Primary Dx); Counseling Fertility Preservation Pre Cancer Therapy 10/11/2023 Orders Only Department of Oncology in [place], [place] [address] [place] [phone] Edelmira Maharaj M.D. Malignant Neoplasm Of Breast Lower Inner Quadrant Female Right (HCC) (Primary Dx) 10/11/2023 Orders Only Department of Oncology in [place], [place] [address] [place] [phone] Edelmira Maharaj M.D. 10/11/2023 Orders Only Department of Oncology in [place], [place] [address] [place] [phone] Edelmira Maharaj M.D. Counseling For Fertility Preservation [...] your living situation today? I have a [facility] place to live 10/15/2023 Sex and Gender Information Value Date Recorded Sex Assigned at Female 10/15/2023 7:08 PM CDT Gender Identity Female 10/15/2023 7:08 PM CDT Sexual Orientation Straight 10/15/2023 7: 08 PM CDT Plan of Treatment Not on file
--- OUTSIDE RECORDS SUMMARY | 2023-10-26 14:44 | XMS_ITS | Encounter Summary ---
Author Organization [facility] Address [address] [place] [address] Care Team Providers Care Molding Machine Setter Name Role Phone Unavailable Primary Care Provider Unavailabl e Reason for Visit * Outpatient (Routine) - Pending Review Specialty Diagnoses / Procedures Referred By Lois chung Referred To Contact Obstetrics and Gynecology Diagnoses Malignant Neoplasm Of Breast Lower Inner Quadrant Female Right (HCC) Edelmira Maharaj M.D. [address] [place] [address] [facility] Referral ID Status Reason Start Date Expiration Date V isits Requested Visits Authorized [id number] Pending Review 10/11/2023 04/11/2025 1 1 Encounter Details Date Type Department Care Team (Late st Contact Info) Description 10/17/2023 1:30 PM CDT Telemedicine Department of Obstetrics and Gynecology in [place], [place] [address] [place] [phone] Daniela Vigil, IRAIDA, C.N.P., M.S. [address] [place] [phone] Malignant Neoplasm Of Breast Lower Inner Quadrant [...] your living situation today? I have a [facility] place to live 10/15/2023 Sex and Gender Information Value Date Recorded Sex Assigned at Female 10/15/2023 7:08 PM CDT Gender Identity Female 10/15/2023 7:08 PM CDT Sexual Orientation Straight 10/15/2023 7: 08 PM CDT documented as of this encounter Patient Instructions * Patient Instructions* Daniela Vigil APRN, C.N.P., M.S. - 10/17/2023 1:30 PM CDT * Attachments The following attachments cannot be sent through Care Everywhere. * Fertility Preservation (Lebanese) documented in this encounter Consult Notes * Daniela Vigil APRN, C.N.P., M.S. - 10/17/2023 1:30 PM CDT SUBJECTIVE Reason For Consult: Fertility Preservation History of Present Illness: Arabella Scott is a 38 y.o. who presents today for fertility preservation in the setting of newly diagnosed breast cancer (tripe neg). Visit conducted via real-time audio/video technology by Daniela Vigil APRN, C.N.P., M.S. in [facility] to the patient in their home. Please see our colleagues notes for further details. Briefly, Arabella Biggs was recently diagnosed with right sided invasive ductal triple negative breast cancer . Her treatment course will include neoadjuvant chemotherapy, and as such, she presents today for fertility preservation. She has 1 child that is now 1-year-old. She reports no problems with conceiving. LMP approximately 3 weeks ago. Presenting Problem: Egg freezing / fertility preservation Successful pregnancies with current partner: Yes Prior fertility evaluation: None/Not applicable Prior treatment(s): None/Not applicable OB History Para Term AB Living 1 1 1 1 SAB IAB Ectopic Molar Multiple Live Births 1 # Outcome Date GA Lbr Christopher/2nd Weight Sex Type Anes PTL Lv 1 Term BRAULIO Shoe Stitcher Odd History: Age of menarche: 14 Period length: 4 Regular periods?: Regular Longest period interval: 24 Shortest period interval: 24 Patient's last menstrual period was 10/04/2023. Intermenstrual bleeding: No Dysmenorrhea: Mild Can detect ovulation with OPK: No Chronic pelvic pain: No H/o contraceptive use: Pills Last contraceptive use: 10/15/23 H/o pelvic infections: No H/o abnormal Pap: No Had a mammogram?: Yes [place] frequency: A few times a week Finds intercourse painful: Never Past medical history, past surgical history, family history, obstetrical history, genetic history, medications and social history were reviewed and updated through the appropriate history tools. Review of Systems Patient answers are not available for this visit. OBJECTIVE VITAL SIGNS BMI Readings from Last 1 Encounters: No data found for BMI ASSESSMENT / PLAN #1 Malignant Neoplasm Of Breast Lower Inner Quadrant Female Right (HCC) Right sided invasive ductal triple negative breast cancer #2 Counseling Fertility Preservation Pre Cancer Therapy 38 y.o. with a need for fertility preservation counseling due to right sided invasive ductal triple negative breast cancer. I met with Arabella Scott today. She has viewed the fertility preservation video. We began by discussing that the risks of infertility after cancer treatment can depend on many things including age, pre treatment fertility status, and type, dose, and duration of chemotherapy. We reviewed poss ible outcomes following therapy including normal fertility, compromised fertility, fertility followed by early menopause, and complete menopause. As such, we discussed options for fertility preservation including embryo cryopreservation, oocyte cryopreservation, ovarian tissue cryopreservation, and ovarian suppression. Embryo cryopreservation is an option for females who have a committed male partner. The process involves removing mature eggs from the ovaries and fertilizing with sperm in the lab to create embryos.The process of egg harvesting takes two to three weeks. We reviewed the role of stimulation medications, frequent monitoring with blood work and ultrasounds, and the process of retrieval under anesthesia. We discussed the role of [employer], the off-site intermediate school teacher storage facility. For women in whom cryopreservation procedures are not an option, it is reasonable for patients to consider ovarian suppression with GnRH analogs. The goal of suppression is to protect the ovaries while receiving potentially damaging therapies. The medication rapidly suppresses ovarian function. As a result, this may be a good choice for women who cannot delay starting cancer treatment. It can be given as one or 3 month injections. Side effects include hot flashes, vaginal dryness and mood changes. The use of GnRH analogs for ovarian protection during chemotherapy remains controversial. While several reports suggest that menstrual function and ovulation may be more likely to occur in cancer patients after treatments with GnRH analogs during chemotherapy compared with those who did not, benefits in terms of fertility outcomes is lacking. Further studies are required to establish the efficacy of this treatment and determine which patients are the best candidates for its use. Certainly this is an overwhelming time for Arabella Biggs. She has chemotherapy scheduled for next week locally. We discussed that IVF stimulation would delay her chemotherapy start by approximately 2-3 weeks. We discussed that we would need to review this with her oncology team. She plans to discuss this with our partner. After discussion, they will make a decision on whether they would like to move forward either with IVF stimulation and embryo cryopreservation or with GnRH analogs. PLAN: Recommend embryo cryopreservation. Couple is undecided, and will reach out once a decision is made. May also consider use GnRH analogs, also undecided. If messages that she wants to move forward will need: Pre IVF testing: AMH, ID lab testing, AFC, SA + ID lab testing for her partner Nurse visit to review charitable programs (did not want to review today) I personally spent 40 minutes in care of the patient today. Time includes both non face to face andface to face patient care. Daniela Vigil APRN, C.N.Jamil., M.S. [facility]: -Scheduling [phone] -Financial [phone] or [email or web address] -Fax Number to Send Outside Medical Records [phone] -Fax Number to Send Fertility Monitoring Results [phone] -Patient Online Services: [email or web address] documented in this encounter Plan of Treatment [...]
--- OUTSIDE RECORDS SUMMARY | 2023-10-26 14:44 | XMS_ITS | Encounter Summary ---
Author Organization [facility] Address [address] [place] [address] Care Team Providers Care Mophead Trimmer And Wrapper Name Role Phone Unavailable Primary Care Provider Unavailabl e Reason for Referral * Outpatient (Routine) - Pending Review Specialty Diagnoses / Procedures Referred By Lois chung Referred To Contact Obstetrics and Gynecology Diagnoses Malignant Neoplasm Of Breast Lower Inner Quadrant Female Right (HCC) Edelmira Maharaj M.D. [address] [place] [address] [facility] Referral ID Status Reason Start Date Expiration Date V isits Requested Visits Authorized [id number] Pending Review 10/11/2023 04/11/2025 1 1 Encounter Details Date Type Department Care Team (Late st Contact Info) Description 10/11/2023 Orders Only Department of Oncology in [place], [place] [address] [place] [phone] Edelmira Maharaj M.D. [address] [place] [phone] Malignant Neoplasm Of Breast Lower Inner Quadrant [...] your living situation today? I have a [facility] place to live 10/15/2023 Sex and [...]
--- OUTSIDE RECORDS SUMMARY | 2023-10-26 14:44 | XMS_ITS | Clinical Summary ---
Author Organization [facility] Address [place], [place] [address] Care Team Providers Care Programming Specialist Name Role Phone Kareen Gna MD Primary Care Provider Allergies No known [...] Received Paxlovid. IONA Campbell. 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 Patient's last menstrual period was 01/05/2022 (exact date). GBS- Last Tdap- 06/28/16 Last Flu vaccine- none Glucose (GTT) result- OB labs: Recent Labs 03/07/22 0920 03/07/22 0917 HGB 13.8 -- ABORH O Rh Positive -- RCBANTIBODY Negative -- TREPONEPALLI Negative -- RUBELLAIGG 12.40 Positive -- HBSAG Negative -- HEPCABY <0.1 Comment -- [id number] Non Reactive -- CHLAMYDIAPRB -- Negative NGONORRPROBE [...] Encounters Date Type Department Care Team Description 10/19/2023 10:00 AM CDT Office Visit [facility] [address] [place] [address] Chula Restrepo MD 10/19/2023 Orders Only [facility] Scanner 1 scan: (1-Ord) [facility], XR CHEST 1V PORTABLE, 10/19/2023 10/19/2023 Orders Only [facility] Scanner 1 scan: (1-Ord) [facility], RIGHT BREAST/LEFT INTERNAL JUGULAR PORT PLACEMENT WITH ULTRASOUND, 10/19/2023 10/19/2023 Orders Only [facility] Scanner 1 scan: (1-Ord) [facility], XR CHEST 1V, 10/19/2023 10/18/2023 8:00 AM CDT Ancillary Procedure [facility] [address] [place] [address] 10/18/2023 Orders Only [facility] Scanner 1 scan: (1-Ord) [place], CT CHEST ABODMEN PELV W CON, 10/18/2023 10/18/2023 Telephone [facility] [address] [place] [address] Kareen Gan MD Referral 10/12/2023 Telephone [facility] [address] [place] [address] Chula Restrepo MD Procedure 10/12/2023 Transcribe Orders [facility] [address] [place] [address] Chula Restrepo MD 10/10/2023 Orders Only [facility] [address] [place] [address] Kareen Gan MD 1 scan: (1-Ord) [place] US GUIDED BREAST BIOPSY LEFT, 10/09/2023 10/09/2023 Orders Only [facility] Scanner 1 scan: (1-Ord) [place] US GUIDED BREAST BIOPSY LT, 10/09/2023 10/09/2023 Orders Only [facility] Scanner 1 scan: (1-Ord) [place], BIOPSY LYMPH AXILLARY, 10/09/2023 10/09/2023 Orders Only [facility] Scanner 1 scan: (1-Ord) NICK MM CLIP PLACEMENT LT, 10/09/2023 10/09/2023 Orders Only [facility] Scanner 1 scan: (1-Ord) [place], MM CLIP PLACEMENT RT, 10/09/2023 10/09/2023 Orders Only [facility] Scanner 1 scan: (1-Ord) [facility], US BX AXILLARY LYMPH NODE, 10/09/2023 10/09/2023 Lab Requisition [facility] [phone] Unknown, Doctor 10/09/2023 Lab Requisition [facility] [phone] Unknown, Doctor 10/06/2023 10:00 AM CDT Telemedicine [facility] [address] [place] [address] Valentina Jhaveri MS, [facility] (Cancer genetic counseling); Telehealth 10/06/2023 Travel 10/05/2023 Telephone [facility] [address] [place] [address] Irma Quiroz Cancer Genetics 10/03/2023 3:00 PM CDT Office Visit [facility] [address] [place] [address] Chula Restrepo MD Consult (Breast cancer) 10/03/2023 Travel 09/27/2023 Orders Only [facility] Scanner 1 scan: (1-Ord) [facility], BREAST BI WO/W CON, 09/27/2023 09/21/2023 Orders Only [facility] [address] [place] [address] Kareen Gan MD 1 scan: (1-Ord) [facility], MM CLIP PLACEMENT RT, 09/20/2023 09/20/2023 Orders Only [facility] Scanner 1 scan: (1-Ord) [place], BREAST BX, 09/20/2023 09/20/2023 Lab Requisition [facility] [phone] Kareen Gan MD 09/13/2023 3:15 PM CDT Ancillary Procedure [facility] [address] [place] [address] 09/13/2023 2:30 PM CDT Ancillary Procedure [facility] [address] [place] [address] 09/13/2023 Travel 08/23/2023 1:05 PM CDT Office Visit [facility] [address] [place], [place] [phone] Kareen Gan MD Breast Problem (1 and a half weeks, lump has gotten smaller) 08/23/2023 Travel from Last 3 Months Immunizations Name Administration Dates Next Due COVID-19 vaccine (Renovar 30mcg/0.3mL) P F, MDV 01/27/2021,01/04/2021 DTP 03/21/1990 MMR 04/08/1992,03/21/1990 Oral Polio [...] 06/16/2022 12:35 PM CDT Plan of Treatment Health Maintenance [...] Procedure Name Priority Date/Time Associated Diagnosis Comments SCAN-RADIOLOGY REPORT 10/19/2023 12:00 AM CDT SCAN-RADIOLOGY REPORT 10/19/2023 12:00 AM CDT SCAN-OPERATIVE/PROCEDU RE REPORT 10/19/2023 12:00 AM CDT ECHO TTE COMPLETE WO CONTRAST Routine 10/18/2023 8:34 AM CDT Encounter for therapeutic drug level monitoring SCAN-CT INTERPRETATION 12:00 AM CDT LAB TRACKING EVENT Routine 10/09/2023 11 :50 [...] HIV-1/O/2, 4TH GENERATION Routine 03/07/2022 9:20 AM PRODUCTION STAFF WORKER Encounter for supervision of normal first in first trimester LC HCV ANTIBODY RFX TO QUANT PCR Routine 03/07/2022 9:20 AM PRODUCTION STAFF WORKER Encounter for supervision of normal first in first trimester HPV THIN PREP Routine 01/04/2021 11:34 AM PRODUCTION STAFF WORKER Pap smear for cervical cancer screening from Last 3 Months or Most Recently Relevant to Health Maintenance Results * SCAN-RADIOLOGY REPORT (10/19/2023 12:00 AM CDT) Only the most recent of2 resultswithin the time period is included. Anatomical Region Laterality Modality Other Scanner OTHER * SCAN-OPERATIVE/PROCEDURE REPORT (10/19/2023 12:00 AM CDT) Scanner OTHER * ECHO TTE COMPLETE WO CONTRAST (10/18/2023 8:34 AM CDT) AORTIC VALVE MEAN PG 7 mmHg EJECTION FRACTION 64 % LVEDD 5.1 cm Anatomical Region Laterality Modality Ultrasound 10/18/2023 8:06 AM CDT Narrative 10/18/2023 9:10 AM CDT ECHOCARDIOGRAM CANDY QUIROZ ? Accession#: ?? [id number] : ?1985 38 years Study Date: ?? 10/18/2023 8:06:40 AM Gender: F ?BP: ? 123/80 mmHg Height: 155.00 cm ?BSA: ?1.69 m? ? ? Weight: 70.00 kg ? Tech: ? MJW ? Referring MD: ADOLPH WEAVER Site: ? [facility] Reading Location: Mobile-OP Patient Location: Outpatient. Procedure: [...] . This study was interpreted by an [facility] accredited facility. ??Final ?? Procedure Note Vladimir Darby MD - 10/18/2023 ECHOCARDIOGRAM CANDY QUIROZ : 1985 38 years Study Date: 10/18/2023 8:06:40 AM Gender: F BP: 123/80 mmHg Height: 155.00 cm BSA: 1.69 m? ? ? Weight: 70.00 kg Tech: MISHA Referring MD: ADOLPH WEAVER Site: [facility] Reading Location: Mobile-OP Patient Location: [...] . This study was interpreted by an [facility] accredited facility. Final Adolph Weaver MD ECHO ORD * SCAN-CT INTERPRETATION (10/18/2023 12:00 AM CDT) Anatomical Region Laterality Modality Other Scanner OTHER * LAB TRACKING EVENT (10/09/2023 11:50 AM CDT) Only the most recent of2 resultswithin the time period is included. Other (Other) Client Collect / Unknown 10/09/2023 11:50 AM CDT 10/09/2023 10:50 PM CDT Doctor Unknown LAB BILL ONLY [facility] [address] [place] [address], * PATH BREAST CORE BIOPSY (10/09/2023 11:50 AM CDT) Only the most recent of2 resultswithin the time period is included. Case Report Pathology Report ?Case: [id number] ? Authorizing Provider: ??Unknown, Doctor ?Collected: ? 10/09/2023 1150 ? Ordering Location: ? [facility] ?Received: ?10/10/2023 0937 ? Pathologist: ? Beata Langley MD ? Specimens: ?? A) - Left Breast Core Ultrasound Biopsy ? B) - Right Breast Core Ultrasound Biopsy ? 10/11/2023 8:56 AM CDT [facility] Final Diagnosis A) LEFT BREAST, RETROAREOLAR, 1 CM FROM NIPPLE, MIDDLE DEPTH, ULTRASOUND-GUIDE D CORE BIOPSY: 1. Fibroadenoma 2. Negative for atypia and malignancy B) RIGHT AXILLA, LYMPH NODE, ULTRASOUND-GUIDE D CORE BIOPSY: 1. Fragments of benign lymph node 2. Negative for metastatic carcinoma in this sampling 10/11/2023 8:56 AM T [facility] Comment These are image-guided breast biopsies. The pathologic findings should be correlated with radiologic and clinical findings prior to treatment decisions. Case seen in consultation with Dr. 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 SHI 10/10/2023 10/11/2023 8:56 AM CDT [facility] Microscopic Description The final diagnosis is based on microscopic examination of appropriate sections of all specimens A) The presence of black ink is confirmed on tissue sections. B) The presence of blue ink is confirmed on tissue sections. 10/11/2023 8:56 AM CDT [facility]-C ENTRAL LABORATORY Additional Information Interpreted at [facility], Central Laboratory - [address], [place] [address] 10/11/2023 8:56 AM CDT [facility] Other (Left Breast Core Ultrasound Biopsy) 10/09/2023 11:50 AM CDT 10/10/2023 9:37 AM CDT Specimen (specimen) (Right Breast Core Ultrasound Biopsy) 10/09/2023 11:57 AM CDT 10/10/2023 9:51 AM CDT Doctor Unknown PATHOLOGY/CYTOLOGY [facility] [address] [place] [address], [place] * US BIOPSY BREAST NEEDLE W [...] For Patients: As a result of the Cures Act, medical imaging exams and procedure reports are released immediately into your electronic medical record. ??You may view this report before your referring provider. ?? If you have questions, please contact your health care provider. BILATERAL BREAST ULTRASOUND, 09/13/2023 PLEASE SEE [id number] FOR DIGITAL BILATERAL MAMMOGRAM SAME DAY. Kareen [...] Vladimir Trujillo MD @09/13/2023 4:07:30 PM / [place] PATIENTS: You will also receive a letter with your examination results in an easy to read format. ??If you have questions about your results, please contact your referring provider. Narrative 09/14/2023 2:10 PM CDT For Patients: As a result of the 21st Century Cures Act, medical imaging exams and [...] RFX TO QUANT PCR (03/07/2022 9:20 AM PRODUCTION STAFF WORKER) HCV Ab <0.1 0.0 - 0.9 s/co ratio 03/11/2022 4:07 AM PRODUCTION STAFF WORKER [facility] ([facility]) Blood BLOOD SPECIMEN / Unknown Venipuncture / Unknown 03/07/2022 9:20 AM PRODUCTION STAFF WORKER 03/07/2022 9:24 AM PRODUCTION STAFF WORKER Narrative [facility] - 03/11/2022 4:07 AM PRODUCTION STAFF WORKER Performed at: ??01 - [facility] [place] [place] ??[id number] [employer] Special [employer] Teacher: Mihir Sauer MD, Phone: ??[phone] Kareen Gan MD LABORATORY [facility] ([facility]) [address] [place] [address], * LC HIV-1/O/2, 4TH GENERATION (03/07/2022 9:20 AM PRODUCTION STAFF WORKER) HIV Scr 4th Gen Non Reactive Non Reactive 03/09/2022 10:06 PM PRODUCTION STAFF WORKER [facility] ([facility]) Comment: HIV Negative HIV-1/HIV-2 antibodies and HIV-1 p24 antigen were NOT detected. There is no laboratory evidence of HIV infection. Blood BLOOD SPECIMEN / Unknown Venipuncture / Unknown 03/07/2022 9:20 AM PRODUCTION STAFF WORKER 03/07/2022 9:24 AM PRODUCTION STAFF WORKER Narrative [facility] ([facility]) - 03/09/2022 10:06 PM PRODUCTION STAFF WORKER Performed at: ??01 - [address] ??[id number] [employer] Teacher: Mihir Sauer MD, Phone: ??[phone] Kareen Gan MD LABORATORY [facility] ([facility]) [address] [place] [address], * HPV HIGH RISK (01/04/2021 11:34 AM PRODUCTION STAFF WORKER) TYPE 16 Negative Negative 01/08/2021 2:06 PM PRODUCTION STAFF WORKER [facility] TYPE 18 Negative Negative 01/08/2021 2:06 PM PRODUCTION STAFF WORKER [facility] OTHER HIGH RISK TYPES Negative Negative 01/08/2021 2:06 PM PRODUCTION STAFF WORKER [facility] Other (Cervical) Non-Blood / Unknown 01/04/2021 11:34 AM PRODUCTION STAFF WORKER 01/04/2021 4:55 PM PRODUCTION STAFF WORKER Narrative [facility] - 01/08/2021 2:06 PM PRODUCTION STAFF WORKER HPV types 16, 18, 31, 33, 35, 39, 45, 51, 52, 56, 58, 59, 66 and 68 DNA were undetectable or below the pre-set threshold. Methodology: John Thuan 4800 HPV Test Little [facility] LABORATORY [address] [place] [address], from Last 3 Months or Most Recently Relevant to Health Maintenance Care Teams Programming Specialist Relationship Specialty Start Date End Date Kareen Gan MD [address] [place] [address] PCP - General Family Practice 02/23/22
--- OUTSIDE RECORDS SUMMARY | 2023-10-26 14:44 | XMS_ITS | Encounter Summary ---
Author Organization [facility] Address [address] [place] [address] Care Team Providers Care Proof Machine Operator Supervisor Name Role Phone Unavailable Primary Care Provider Unavailabl e Encounter Details Date Type Department Care Team (Late st Contact Info) Description 10/11/2023 Orders Only Department of Oncology in [place], [place] [address] [place] [phone] Edelmira Maharaj M.D. [address] [place] [phone] Social History Tobacco Use Types Packs/Day Years [...] living situation today? I have a [facility] place to live 10/15/2023 Sex and Gender [...]
--- NOTE | 2023-10-26 15:30 | PE_ITS ---
[facility] [address] [facility] [address] Phone:?[phone] Fax:?[phone] Referring Physician Information: Kerri Medina N.P. [address] [facility] [address] Phone:?[phone] Fax:?[phone] Patient:Yumiko Scott D.O.B:?1985 Sex:?Female Phone:?[phone] [facility] MRN:?[id number] Exam Date:?10/26/2023 EXAM: PET/CT EYES TO THIGHS, CANCER INITIAL STAGING CLINICAL INFORMATION: Triple-negative right breast cancer, staging. TECHNICAL INFORMATION: Helical acquisition of data was obtained from the orbits to the upper thighs with reconstruction of 3.75 mm thick images at 3.[address] data was used for attenuation correction. PET scanning was performed through the same anatomic range 54 minutes following administration of 13.34 mCi of 18-FDG delivered intravenously. The patient's glucose at the time of the injection was 83 mg/dL. PET, CT and PET/CT fusion images are interpreted using a computer viewing workstation. PET, CT and PET/CT fusion images were archived and saved in the patient's permanent medical record. COMPARISON: CT CAP from 10/18/2023 was reviewed. INTERPRETATION: Head and Neck: There are no abnormal hypermetabolic foci within the head or neck. There is physiologic uptake in the intracranial soft tissues. Chest: Hypermetabolic lesion in the central right breast (Se 2 Im 111) has a maximum SUV of 7.83) is generally consistent with the patient's known breast cancer. There are no other abnormal hypermetabolic foci within the chest. Background mediastinal blood pool uptake has a maximum SUV of 2.5. No lung nodules or masses detected on this free-breathing exam. (The 2 mm right lung nodule seen on recent CT is too small to visualize on this exam.) No intrathoracic lymphadenopathy in terms of size, morphology, or metabolic rate. Left chest port catheter terminates at cavoatrial junction. Abdomen and Pelvis: There are no abnormal hypermetabolic foci within the abdomen or pelvis. Background hepatic parenchymal uptake has a maximum SUV of 3.31. There is physiologic excretion of radiotracer in the urine and bowel. Skeleton, Musculature, and Integument: No abnormal hypermetabolic foci within the skeleton. No kennedy osteoblastic or osteolytic disease. Benign uptake noted within musculature and likely brown adipose tissue about the occiput and paraspinous musculature. CONCLUSION: 1. Focal hypermetabolism within the central right breast is consistent with the patient's known primary breast cancer. 2. No robin or distant metastasis identified from the skull base to midthighs. Recommend dedicated chest CT in ~3 months to reevaluate a 2 mm nodule seen on recent CT CAP. Electronically signed on 10/27/2023 2:22:00 PM by Frank Moreno M.D.
== END 2023-10-26 14:40 | disposition home or self-care (01) ==
LOC: RAD 14:39
PROVIDERS: PCP Family Medicine; Visit Provider Internal Medicine Hematology & Oncology
DX: C50.919 Malignant neoplasm of unspecified site of unspecified female breast (principal)
CPT/HCPCS: 78815; A9552

== ENCOUNTER 2024-02-01 13:17 | Outpatient (CLI) | payer BC, SELFPAY ==
--- OUTSIDE RECORDS SUMMARY | 2024-02-01 13:20 | XMS_ITS | Encounter Summary ---
Author Organization [facility] Address [address] [place] [address] Care Team Providers Care Hand Cutter Apprentice Name Role Phone Unavailable Primary Care Provider Unavailabl e Reason for Referral * Outpatient (Routine) - Authorized Specialty Diagnoses / Procedures Referred By Lois chung Referred To Contact Obstetrics and Gynecology Diagnoses Counseling For Fertility Preservation Preservation Fertility Procedure Edelmira Maharaj M.D. [address] [place] [address] Phone: tel: fax: [facility] Referral ID Status Reason Start Date Expiration Date V isits Requested Visits Authorized [id number] Authorized 10/11/2023 04/11/2025 1 1 Encounter Details Date Type Department Care Team (Late st Contact Info) Description 10/11/2023 Orders Only Department of Oncology in [place], [place] [address] [place] [phone] Edelmira Maharaj M.D. [address] [place] [phone] Counseling For Fertility Preservation (Primary Dx); Preservation [...] your living situation today? 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
--- OUTSIDE RECORDS SUMMARY | 2024-02-01 13:20 | XMS_ITS | Referral Summary ---
Author Organization [facility] Address [address] [place] [address] Care Team Providers Care Aids Social Worker Name Role Phone Unavailable Primary Care Provider Unavailabl e Source Comments Patient records contain information from all sites at [facility]. For routine questions regarding patient records, call [phone] during business hours, M-F 8:00 AM - 5:00 PM Central Time. Record requests for emergency care only can be directed to [phone] at any time.[facility] Allergies No known active allergies Medications Estarylla 0.25-35 mg-mcg per tablet Take 1 [...] medical appointments or from getting medications? No 08/1 09/2023 In the past 12 months, has l [...] your living situation today? 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
--- OUTSIDE RECORDS SUMMARY | 2024-02-01 13:20 | XMS_ITS | Encounter Summary ---
Author Organization [facility] Address [address] [place] [address] Care Team Providers Care Commissions Coordinator Name Role Phone Unavailable Primary Care Provider Unavailabl e Encounter Details Date Type Department Care Team (Late st Contact Info) Description 10/11/2023 Orders Only Department of Oncology in [place], [place] [address] [place] [phone] Edelmira Maharaj M.D. [address] [place] [phone] Social History Tobacco Use Types Packs/Day Years [...] your living situation today? I have a [facility] place to live 10/15/2023 Comments Unknown Sex and Gender Information Value Date Recorded Sex Assigned at Female 10/15/2023 7:08 PM CDT Legal Sex Female 6:21 PM RN BUILDING Gender Identity Female 10/15/2023 7:08 PM CDT Sexual Orientation Straight 10/15/2023 7: 08 PM CDT documented as of this encounter Plan of Treatment Not on file documented as of this encounter Visit Diagnoses Not on filedocumented in this encounter
--- OUTSIDE RECORDS SUMMARY | 2024-02-01 13:20 | XMS_ITS | Clinical Summary ---
Author Organization [facility] Address [address] [place] [address] Care Team Providers Care Chair Spring Assembler Name Role Phone Unavailable Primary Care Provider Unavailabl e Source Comments Patient records contain information from all sites at [facility]. For routine questions regarding patient records, call [phone] during business hours, M-F 8:00 AM - 5:00 PM Central Time. Record requests for emergency care only can be directed to [phone] at any time.[facility] Allergies No known active allergies Medications Estarylla [...] your living situation today? 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 Gender Identity Female 10/15/2023 7:08 PM CDT Sexual Orientation Straight 10/15/2023 7: 08 PM CDT Plan of Treatment Health Maintenance Due Date Last Done Comments Cervical/Vaginal Cancer Screening 1986 HIV Screening 1986 Hepatitis C Screening 1986 Hepatitis B Vaccines (1 of 3 - 19+ 3-dose series) 2005 Depression Screening (Annual PHQ-2) 02/27/2023 COVID-19 Vaccine (3 - 2023-2 5 season) 2023 01/27/2021, 01/04/2021 Influenza Vaccine (#1) 2023 Lipid (Cholesterol) Screening 01/04/2026 01/04/2021 DTaP,Tdap,and Td Vaccines (4 - Td or Tdap) 08/11/2032 08/11/2022, 06/28/2016, 03/21/1990 HPV Vaccines Aged Out No longer eligi ble based on patient's age to complete this topic IPV Vaccines Aged Out No longer eligi ble based on patient's age to complete this topic Pneumococcal vaccine (0-64 years) Aged Out No longer eligible b ased on patient's age to complete this topic Insurance BLUE CROSS BLUE [facility] [place] [address]
--- OUTSIDE RECORDS SUMMARY | 2024-02-01 13:20 | XMS_ITS ---
Author Organization [facility] Address [address] [place] [address] Care Team Providers Care Gunnery/Ordnance Officer Name Role Phone Unavailable Unavailable Unavailable Surgery Details Not on file Complications Check Surgery Details section. Procedure Estimated Blood Loss Check Surgery Details section. Procedure Findings Check Surgery Details section. Procedure Specimens Taken Check Surgery Details section.
--- OUTSIDE RECORDS SUMMARY | 2024-02-01 13:20 | XMS_ITS | Encounter Summary ---
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 [address] [place] [address] Phone: tel: fax: [facility] Referral ID Status Reason Start Date Expiration Date V isits Requested Visits Authorized [id number] Pending Review 10/11/2023 04/11/2025 1 1 Encounter Details Date Type Department Care Team (Late st Contact Info) Description 10/11/2023 Orders Only Department of Oncology in [place], [place] [address] [place] [id number] Edelmira Maharaj M.D. [address] [place] [address] Malignant Neoplasm Of Breast Lower Inner Quadrant [...] your living situation today? I have a [facility] place to live 10/15/2023 Comments Unknown Sex and Gender Information Value Date Recorded Sex Assigned at Female 10/15/2023 7:08 PM CDT Legal Sex Female 6:21 PM PAI GOW MANAGER Gender Identity Female 10/15/2023 7:08 PM CDT [...]
--- OUTSIDE RECORDS SUMMARY | 2024-02-01 13:20 | XMS_ITS | Clinical Summary ---
Author Organization [facility] Address [place], [place] [address] Care Team Providers Care Motorcycle Police Name Role Phone Kareen Gan MD Primary [...] Chronic hypertension affecting 05/05/2022 08/23/2023 02/23/2022 08/23/2023 Overview (09/30/2022): Problem List: 1) Pregestational prediabetes. Hgb A1c [...] Received Paxlovid. IONA Campbell. 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 Patient's last menstrual period was 01/05/2022 (exact date). GBS- Last Tdap- 06/28/16 Last Flu vaccine- none Glucose (GTT) result- OB labs: Recent Labs 03/07/22 0920 03/07/22 0917 HGB 13.8 -- ABORH O Rh Positive -- RCBANTIBODY Negative -- TREPONEPALLI Negative -- RUBELLAIGG 12.40 Positive -- HBSAG Negative -- HEPCABY <0.1 Comment -- [id number] Non Reactive -- CHLAMYDIAPRB -- Negative NGONORRPROBE [...] Encounters Date Type Department Care Team Description 12/06/2023 Telephone [facility] [address] [place] [address] Valentina Jhaveri, , [facility] Results (Cancer genetic counseling) from Last 3 Months Immunizations Name Administration Dates Next Due COVID-19 vaccine ([employer] 30mcg/0.3mL) P F, MDV 01/27/2021,01/04/2021 DTP 03/21/1990 [...] 91 10/03/2023 3:02 PM CDT Temperature 36.4 C (97.6 F) 07/13/2021 4:31 AM CDT Respiratory Rate 16 07/13/2021 4:31 AM CDT Oxygen Saturation 100% 10/03/2023 3:02 PM CDT Inhaled Oxygen Concentration - - Weight 69.6 kg (153 lb 5.8 oz) 08/23/2023 1:04 P M CDT Height 160 cm (5' 3) 06/16/2022 12:35 PM CDT Body Mass Index 27.17 06/16/2022 12:35 PM CDT Plan of Treatment Health Maintenance Due Date Last Done Comments BMI (ht and wt on same day) for age 18+ 06/17/2023 06/16/2022, 03/10/2022, 01/04/2021, Additional history exists COVID-19 vaccine series (2023- season) 2023 01/27/2021, 01/04/2021 Influenza for age 9-49 10/29/2023 Depression screening for age 12+ 12/22/2023 12/21/2022, 04/07/2022, 01/04/2021, Additional history exists Pap test for age 21-65 01/04/2026 , 01/04/2021, 08/01/2016, Additional history exists Tetanus booster 08/11/2032 08/11/2022, 06/28/2016 HIV for age 15-65 Completed 03/07/2022 Hepatitis C screening for age 18-79 Completed 03/07/2022 Tdap Completed 08/11/2022, 06/28/2016 Pneumococcal series for age 6-64 Aged Out No longer eligible based on patient's age to complete this topic Procedures Procedure Name Priority Date/Time Associated Diagnosis Comments LC HIV-1/O/2, 4TH GENERATION Routine 03/07/2022 9:20 AM LOGGING SUPERINTENDENT Encounter for supervision of normal first in first trimester LC HCV ANTIBODY RFX TO QUANT PCR Routine 03/07/2022 9:20 AM LOGGING SUPERINTENDENT Encounter for supervision of normal first in first trimester HPV HIGH RISK Routine 01/04/2021 11:34 AM LOGGING SUPERINTENDENT Pap smear for cervical cancer screening from Last 3 Months or Most Recently Relevant to Health Maintenance Results * LC HCV ANTIBODY RFX TO QUANT PCR (03/07/2022 9:20 AM LOGGING SUPERINTENDENT) Pathologist [facility] HCV Ab <0.1 0.0 - 0.9 s/co ratio 03/11/2022 4:07 AM LOGGING SUPERINTENDENT [facility] TEST[facility] ([facility]) Blood BLOOD SPECIMEN / Unknown Venipuncture / Unknown 03/07/2022 9:20 AM LOGGING SUPERINTENDENT 03/07/2022 9:24 AM LOGGING SUPERINTENDENT Narrative [facility] TESTING (CET) - 03/11/2022 4:07 AM LOGGING SUPERINTENDENT Performed at: [address] [place] [id number] Livestock Farmers: Mihir Sauer MD, Phone: [phone] Kareen Gan MD LABORATORY Performing Organization Address [facility] [address]/[facility] de Phone Number [facility] ESOTERIC TESTING (CET) [address] [place] [address] * HIV-1/O/2, 4TH GENERATION (03/07/2022 9:20 AM LOGGING SUPERINTENDENT) Pathologist [facility] HIV Scr 4th Gen Non Reactive Non Reactive 03/09/2022 10:06 PM LOGGING SUPERINTENDENT [facility] ES[facility]IC TESTING (CET) Comment: HIV Negative HIV-1/HIV-2 antibodies and HIV-1 p24 antigen were NOT detected. There is no laboratory evidence of HIV infection. Blood BLOOD SPECIMEN / Unknown Venipuncture / Unknown 03/07/2022 9:20 AM LOGGING SUPERINTENDENT 03/07/2022 9:24 AM LOGGING SUPERINTENDENT Narrative [facility] ES[facility] TESTING (CET) - 03/09/2022 10:06 PM LOGGING SUPERINTENDENT Performed at: [address] [place] [id number] Livestock Farmers: Mihir Sauer MD, Phone: [phone] Kareen Gan MD LABORATORY Performing Organization Address [facility] [address]/[facility] Co de Phone Number [facility] ESOTERIC TESTING (CET) [address] [place] [id number], * HPV HIGH RISK (01/04/2021 11:34 AM LOGGING SUPERINTENDENT) TYPE 16 Negative Negative 01/08/2021 2:06 PM LOGGING SUPERINTENDENT [facility]AL LABORATORY TYPE 18 Negative Negative 01/08/2021 2:06 PM LOGGING SUPERINTENDENT [facility] TRAL LABORATORY OTHER HIGH RISK TYPES Negative Negative 01/08/2021 2:06 PM LOGGING SUPERINTENDENT [facility] Other (Cervical) Non-Blood / Unknown 01/04/2021 11:34 AM LOGGING SUPERINTENDENT 01/04/2021 4:55 PM LOGGING SUPERINTENDENT Narrative [facility] - 01/08/2021 2:06 PM LOGGING SUPERINTENDENT HPV types 16, 18, 31, 33, 35, 39, 45, 51, 52, 56, 58, 59, 66 and 68 DNA were undetectable or below the pre-set threshold. Methodology: John Thuan 4800 HPV Test Little [employer] [facility] [address] [place] [address], from Last 3 Months or Most Recently Relevant to Health Maintenance Care Teams Motorcycle Police Relationship Specialty Start Date End Date Kareen Gan MD [address] [place] [address] PCP - General Family Practice 02/23/22
--- NOTE | 2024-02-01 13:25 | CRLHL7_ITS ---
For Patients: As a result of the Century Cures Act, medical imaging exams and procedure reports are released immediately into your electronic medical record. You may view this report before your referring provider. If you have questions, please contact your health care provider. INDICATION: Upper respiratory symptoms. Receiving chemotherapy for breast cancer. Leukocytosis and tachycardia. COMPARISON: 10/19/2023 TECHNIQUE: PA and lateral 2 view chest. FINDINGS: Lung volumes are good. Focal consolidation in the lateral segment of the right middle lobe. No pulmonary edema. No pleural effusion. No pneumothorax. No pneumomediastinum. Normal heart size. Normal mediastinal contours. Left IJ chest port distal tip superior cavoatrial junction. Bones: Normal for age. Surgical clips in both breasts. IMPRESSION: Small focus of right middle lobe pneumonia. No findings of cavitation. No parapneumonic effusion. Dictated by Eileen Esposito MD @ 02/01/2024 1:43:48 PM (Electronically Signed)
== END 2024-02-01 13:18 | disposition home or self-care (01) ==
LOC: RAD 13:18
PROVIDERS: PCP Family Medicine; Visit Provider Clinical Nurse Specialist
DX: R05.9 Cough, unspecified (principal); J18.9 Pneumonia, unspecified organism; M79.10 Myalgia, unspecified site; B97.89 Other viral agents as the cause of diseases classified elsewhere; C50.919 Malignant neoplasm of unspecified site of unspecified female breast; Z51.11 Encounter for antineoplastic chemotherapy
CPT/HCPCS: 71046

== ENCOUNTER 2024-03-07 09:16 | Outpatient (CLI) | payer BC, SELFPAY ==
--- NOTE | 2024-03-07 09:15 | CRLHL7_ITS ---
For Patients: As a result of the Century Cures Act, medical imaging exams and procedure reports are released immediately into your electronic medical record. You may view this report before your referring provider. If you have questions, please contact your health care provider. Indication: power port not working Technique: Fluoroscopic guided power port injection. Fluoroscopic time 0.39 minutes. 8 cc of Omnipaque 240 injected. IMPRESSION: Normal withdrawal of blood through the PowerPort. Normal injection of contrast through the catheter without evidence of fibrin sheath. No kinking of the catheter despite multiple position changes. Dictated by Vladimir Trujillo MD @ 03/07/2024 11:10:10 AM (Electronically Signed)
== END 2024-03-07 09:17 | disposition home or self-care (01) ==
LOC: RAD 09:17
PROVIDERS: PCP Family Medicine; Visit Provider Clinical Nurse Specialist
DX: C50.919 Malignant neoplasm of unspecified site of unspecified female breast (principal)
CPT/HCPCS: 76000

== ENCOUNTER 2024-03-21 11:00 | Outpatient (RCR) | payer BC, SELFPAY ==
--- NOTE | 2023-10-12 12:10 | URNOTE ---
Addendum entered by Eugenia Bai RN 10/17/23 14:14: Prior authorization is approved for Aloxi (J2469) and Fulphila preferred med for [employer] plan (Q5108) per Rajendra on behalf of [facility]. Palonosetron (Aloxi) (J2469) dose amount: 250mcg, frequency: 14days, doses approved: 13, total amount: 3,250.00mcg; Auth #[id number]. Date range: 10/18/2023 to 04/14/2024. Pegfilgrastim-jmdb (Fulphila) (Q5108) dose amount: 6mg, frequency: 14days, dose approved: 9, total amount: 54.00 mg; Auth #[id number]. Date range: 10/18/2023 to 02/14/2024. Original Note: Per Availity, prior auth is not required for Doxorubicin (J9000), Cyclophosphamide (J9070) and Fosaprepitant (J1453). Prior auth is required for Aloxi (J2469) and Udenyca (Q5111). These are pending with Rajendra.
--- NOTE | 2023-10-13 14:35 | ONC.NURNOTE ---
Spoke with patient and reviewed plan of care: [facility]: 10/16 ECHO: 10/17 CT CAP: 10/17 Labs and Teachin/21 Port: 10/18 Patient is unsure if she wants to start chemotherapy immediately after port placement on 10/18. She will think about it over the weekend and let us know. Decision will also pend on what she decides to do with the fertility clinic and if we have CT and ECHO results back.
--- NOTE | 2023-10-18 11:35 | ONC.NURNOTE ---
Pt here for chemo teaching today; verbalized understanding, questions answered. Adriamycin/Cytoxan and chemo binder reviewed; consents signed. Port placement scheduled tomorrow. Pt had Fertility Consult yesterday. She and her are deciding between egg preservation and ovarian suppression. Pt tearful when describing she and her have decided to go with ovarian suppression to be able to begin chemotherapy sooner. She describes how hopes for more children and she had recently decided she's ready to try for a 2nd child right before breast cancer diagnosis. The potential loss of fertility is deeply grieving to both of them. Pt will call Fertility Clinic today with decision. She also notes her insurance is requiring a referral from PCP for fertility; she is contacting her clinic today to obtain.
--- NOTE | 2023-10-20 09:54 | URNOTE ---
?Request received for authorization for Zoladex ([id number]). Prior authorization is not required on [employer], called [facility] Rep. Yoseph Faulkner reports no PA needed, Ref#[id number].
[2023-10-20 11:41] VITALS: BP 132/84; PULSE 78; RESP 16; TEMP 36.5; O2SAT 99
[2023-10-20] MEDS: GOSERELIN ACETATE 3.6 MG IMPLANT SUBCUT (12:04)
--- NOTE | 2023-10-23 16:58 | ONC.NURNOTE ---
The following questions were discussed with Dr. Maharaj: 1. Zoladex was given 10/19, how soon can chemotherapy be started? ANITHA 2. Should patient continue oral control? No Patient instructed to stop oral control. We discussed the importance of using alternative forms of protection, abstinence, condoms, etc. HCG levels will be checked prior to each chemotherapy. Patient scheduled to start her chemotherapy 10/23 with labs prior. Patient will receive her Fulphila injection prior to her PET/CT on 10/25. Patient verbalizes understanding.
[2023-10-25 11:02] VITALS: BP 132/87; PULSE 77; RESP 16; TEMP 36.2; O2SAT 99
[2023-10-25 11:48] LABS: Albumin* 4.7 g/dL (3.3-5.0); Chloride* 108 mmol/L (96-114); Potassium* 4.2 mmol/L (3.6-5.1); Sodium* 140 mmol/L (135-149)
[2023-10-25 11:51] LABS: Alanine Aminotransferase* 12 U/L (4-35); Alkaline Phosphatase* 52 U/L (40-150); Anion Gap 9 mEq/L (7-15); Aspartate Amino Transferase* 19 U/L (12-35); Bilirubin Total* 0.3 mg/dL (0.1-1.5); Blood Urea Nitrogen* 17 mg/dL (5-24); Carbon Dioxide* 23 mmol/L (20-32); Est. Creatinine Clearance* 58.12; Estimated Glomerular Filt Rate 74 ml/min; Glucose* 99 mg/dL (60-115); Total Protein* 7.7 g/dL (6.0-8.3)
[2023-10-25 11:52] LABS: Calcium* 9.3 mg/dL (8.4-10.6)
[2023-10-25 12:01] LABS: Basophils Absolute Auto 0.03 K/uL (0.00-0.30); Basophils Percent Auto 0.4 % (0.0-3.0); Eosinophils Absolute Auto 0.06 K/uL (0.00-0.50); Eosinophils Percent Auto 0.7 % (0.0-7.0); Hematocrit 40.6 % (33.0-51.0); Hemoglobin* 13.4 gm/dL (12.0-16.0); Immature Granulocytes Abs Auto 0.06 K/uL (0.00-0.30); Immature Granulocytes Pct Auto 0.7 %; Lymphocytes Percent Auto 21.9 % (20-44); Mean Corpuscular HGB Conc 33 gm/dL (32-36); Mean Corpuscular Hemoglobin 30 pg (26-34); Mean Corpuscular Volume 92 fL (80-100); Neutrophils Absolute Auto 5.78 K/uL (1.7-7.0); Neutrophils Percent Auto 70.3 % (42.0-72.0); Platelet Count* 325 K/uL (140-440); RDW Coefficient of Variation % 12.5 % (11.5-15.5); Red Blood Count 4.42 m/uL (4.00-5.20); Slide Review Reflex No; White Blood Count* 8.22 K/uL (4.50-11.00)
[2023-10-25 12:30] LABS: HCG Quantitative* < 2.39 mIU/mL
[2023-10-25] MEDS: dexAMETHasone 10 MG in 0.9 % SODIUM CHLORIDE 100 ml 100 ML 404 MG IVPB (12:38)
[2023-10-25] MEDS: PALONOSETRON 0.25 MG/5 ML inj IV (12:38)
[2023-10-25] MEDS: FOSAPREPITANT 150 MG inj 150 MG in 0.9 % SODIUM CHLORIDE 250 ml 250 ML 510 MG IVPB (12:59)
[2023-10-25] MEDS: DOXOrubicin 2 MG/ML inj 100 MG IVP (13:46)
[2023-10-25] MEDS: cycloPHOSphamide 1,000 MG, TUBING SECONDARY 1 EACH in 0.9 % SODIUM CHLORIDE 250 ml 250 ML 510 MG IV (13:46)
[2023-10-25] MEDS: 0.9 % SODIUM CHLORIDE 250 ml IV (14:00)
[2023-10-25] MEDS: SODIUM CHLORIDE 0.9 % (FLUSH) 10 ML SYRINGE IVF (14:40)
[2023-10-25] MEDS: HEPARIN 500 UNIT/5 ML SYRINGE IVF (14:40)
--- NOTE | 2023-10-25 15:10 | ONC.NURNOTE ---
Pt here for 1st Adriamycin/Cytoxan. Pt tolerated well. Pt given calendar on when to take antiemetics/claritan. Pt verbalized understanding of instructions and will call if she has any questions or concerns. Pt to return to [facility] tomorrow for injection.
[2023-10-26 14:46] VITALS: BP 132/81; PULSE 72; RESP 16; TEMP 36.5; O2SAT 100
[2023-10-26] MEDS: PEGFILGRASTIM-JMDB (Fulphila) 6 MG/0.6 ML SUBCUT (14:52)
--- NOTE | 2023-10-27 15:40 | ONC.NURNOTE ---
Patient informed that her PET/CT did not identify any robin or distant metastasis. They recommend close follow up to her lung nodule. Patient informed we will discuss this further at her follow up.
[2023-11-08 08:17] LABS: Basophils Percent Auto 0.3 % (0.0-3.0); Eosinophils Percent Auto 0.2 % (0.0-7.0); Hematocrit 43.8 % (33.0-51.0); Hemoglobin* 14.5 gm/dL (12.0-16.0); Immature Granulocytes Pct Auto 2.4 %; Lymphocytes Percent Auto 12.3 % (20-44); Mean Corpuscular HGB Conc 33 gm/dL (32-36); Mean Corpuscular Hemoglobin 30 pg (26-34); Mean Corpuscular Volume 91 fL (80-100); Monocytes Percent Auto 5.7 % (0.0-11.0); Neutrophils Percent Auto 79.1 % (42.0-72.0); Platelet Count* 248 K/uL (140-440); RDW Coefficient of Variation % 12.8 % (11.5-15.5); White Blood Count* 13.53 K/uL (4.50-11.00)
[2023-11-08 08:18] LABS: Slide Review Reflex No
[2023-11-08 08:39] LABS: Albumin* 4.9 g/dL (3.3-5.0); Chloride* 108 mmol/L (96-114); Potassium* 4.2 mmol/L (3.6-5.1); Sodium* 143 mmol/L (135-149)
[2023-11-08 08:41] LABS: Anion Gap 11 mEq/L (7-15); Aspartate Amino Transferase* 20 U/L (12-35); Bilirubin Total* 0.4 mg/dL (0.1-1.5); Carbon Dioxide* 24 mmol/L (20-32); Creatinine* 0.7 mg/dL (0.5-1.5); Est. Creatinine Clearance* 83.03; Estimated Glomerular Filt Rate 114 ml/min; Total Protein* 7.9 g/dL (6.0-8.3)
[2023-11-08 08:42] LABS: Alanine Aminotransferase* 19 U/L (4-35); Alkaline Phosphatase* 101 U/L (40-150); Blood Urea Nitrogen* 13 mg/dL (5-24); Calcium* 9.4 mg/dL (8.4-10.6); Glucose* 101 mg/dL (60-115)
[2023-11-08 09:22] LABS: HCG Quantitative* < 2.39 mIU/mL
[2023-11-08] MEDS: PALONOSETRON 0.25 MG/5 ML inj IV (09:46)
[2023-11-08] MEDS: 0.9 % SODIUM CHLORIDE 250 ml IV (09:46)
[2023-11-08] MEDS: SODIUM CHLORIDE 0.9 % (FLUSH) 10 ML SYRINGE IVF ×2 (09:46→12:24)
[2023-11-08] MEDS: dexAMETHasone 10 MG in 0.9 % SODIUM CHLORIDE 100 ml 100 ML 404 MG IVPB (10:09)
[2023-11-08] MEDS: FOSAPREPITANT 150 MG inj 150 MG in 0.9 % SODIUM CHLORIDE 250 ml 250 ML 800 MG IVPB (10:28)
[2023-11-08] MEDS: DOXOrubicin 2 MG/ML inj 100 MG IVP (11:04)
[2023-11-08] MEDS: cycloPHOSphamide 1,000 MG, TUBING SECONDARY 1 EACH in 0.9 % SODIUM CHLORIDE 250 ml 250 ML 400 MG IV (11:04)
[2023-11-08] MEDS: HEPARIN 500 UNIT/5 ML SYRINGE IVF (12:24)
[2023-11-09] MEDS: PEGFILGRASTIM-JMDB (Fulphila) 6 MG/0.6 ML SUBCUT (15:33)
[2023-11-17] MEDS: GOSERELIN ACETATE 3.6 MG IMPLANT SUBCUT (15:03)
[2023-11-22] MEDS: SODIUM CHLORIDE 0.9 % (FLUSH) 10 ML SYRINGE IVF ×2 (11:00→15:24)
[2023-11-22 11:20] LABS: Basophils Percent Auto 0.2 % (0.0-3.0); Eosinophils Percent Auto 0.1 % (0.0-7.0); Hematocrit 38.3 % (33.0-51.0); Hemoglobin* 12.8 gm/dL (12.0-16.0); Immature Granulocytes Pct Auto 4.6 %; Lymphocytes Percent Auto 9.4 % (20-44); Mean Corpuscular HGB Conc 33 gm/dL (32-36); Mean Corpuscular Hemoglobin 31 pg (26-34); Mean Corpuscular Volume 91 fL (80-100); Monocytes Percent Auto 8.1 % (0.0-11.0); Neutrophils Percent Auto 77.6 % (42.0-72.0); Platelet Count* 209 K/uL (140-440); RDW Coefficient of Variation % 12.9 % (11.5-15.5); White Blood Count* 12.72 K/uL (4.50-11.00)
[2023-11-22 11:23] LABS: Slide Review Reflex Yes
[2023-11-22 11:33] LABS: Albumin* 4.7 g/dL (3.3-5.0); Chloride* 105 mmol/L (96-114); Sodium* 137 mmol/L (135-149)
[2023-11-22 11:35] LABS: Bilirubin Total* 0.1 mg/dL (0.1-1.5); Creatinine* 0.6 mg/dL (0.5-1.5); Est. Creatinine Clearance* 96.87; Estimated Glomerular Filt Rate 118 ml/min
[2023-11-22 11:36] LABS: Alanine Aminotransferase* 23 U/L (4-35); Alkaline Phosphatase* 119 U/L (40-150); Anion Gap 8 mEq/L (7-15); Aspartate Amino Transferase* 24 U/L (12-35); Blood Urea Nitrogen* 12 mg/dL (5-24); Calcium* 8.8 mg/dL (8.4-10.6); Carbon Dioxide* 24 mmol/L (20-32); Glucose* 101 mg/dL (60-115); Total Protein* 7.6 g/dL (6.0-8.3)
[2023-11-22 11:49] LABS: Slide Review Acceptable Review (Acceptable)
[2023-11-22 11:57] LABS: HCG Quantitative* < 2.39 mIU/mL
[2023-11-22] MEDS: PALONOSETRON 0.25 MG/5 ML inj IV (12:57)
[2023-11-22] MEDS: 0.9 % SODIUM CHLORIDE 250 ml IV (12:57)
[2023-11-22] MEDS: dexAMETHasone 10 MG in 0.9 % SODIUM CHLORIDE 100 ml 100 ML 404 MG IVPB (12:57)
[2023-11-22] MEDS: FOSAPREPITANT 150 MG inj 150 MG in 0.9 % SODIUM CHLORIDE 250 ml 250 ML 800 MG IVPB (13:18)
[2023-11-22] MEDS: cycloPHOSphamide 1,000 MG, TUBING SECONDARY 1 EACH in 0.9 % SODIUM CHLORIDE 250 ml 250 ML 255 MG IV (14:02)
[2023-11-22] MEDS: DOXOrubicin 2 MG/ML inj 100 MG IVP (14:02)
[2023-11-22] MEDS: HEPARIN 500 UNIT/5 ML SYRINGE IVF (15:24)
[2023-11-23 14:40] VITALS: BP 120/76; PULSE 76; RESP 16; TEMP 36.5; O2SAT 97
[2023-11-23] MEDS: PEGFILGRASTIM-JMDB (Fulphila) 6 MG/0.6 ML SUBCUT (14:48)
[2023-12-05 14:50] LABS: Basophils Percent Auto 0.5 % (0.0-3.0); Eosinophils Percent Auto 0.1 % (0.0-7.0); Hematocrit 33.5 % (33.0-51.0); Hemoglobin* 11.1 gm/dL (12.0-16.0); Immature Granulocytes Pct Auto 8.8 %; Lymphocytes Percent Auto 10.5 % (20-44); Mean Corpuscular HGB Conc 33 gm/dL (32-36); Mean Corpuscular Hemoglobin 30 pg (26-34); Mean Corpuscular Volume 91 fL (80-100); Monocytes Percent Auto 9.8 % (0.0-11.0); Neutrophils Percent Auto 70.3 % (42.0-72.0); Platelet Count* 200 K/uL (140-440); RDW Coefficient of Variation % 13.6 % (11.5-15.5); Red Blood Count 3.67 m/uL (4.00-5.20); White Blood Count* 12.06 K/uL (4.50-11.00)
[2023-12-05 15:07] LABS: Slide Review Reflex No
[2023-12-05 15:14] LABS: Albumin* 4.4 g/dL (3.3-5.0); Chloride* 102 mmol/L (96-114); Potassium* 3.6 mmol/L (3.6-5.1); Sodium* 139 mmol/L (135-149)
[2023-12-05 15:16] LABS: Bilirubin Total* 0.1 mg/dL (0.1-1.5); Creatinine* 0.9 mg/dL (0.5-1.5); Est. Creatinine Clearance* 64.58; Estimated Glomerular Filt Rate 84 ml/min
[2023-12-05 15:17] LABS: Alanine Aminotransferase* 26 U/L (4-35); Alkaline Phosphatase* 96 U/L (40-150); Anion Gap 11 mEq/L (7-15); Aspartate Amino Transferase* 22 U/L (12-35); Blood Urea Nitrogen* 14 mg/dL (5-24); Calcium* 9.1 mg/dL (8.4-10.6); Carbon Dioxide* 26 mmol/L (20-32); Glucose* 114 mg/dL (60-115); Total Protein* 7.1 g/dL (6.0-8.3)
[2023-12-05 15:35] LABS: HCG Quantitative* < 2.39 mIU/mL
--- NOTE | 2023-12-06 10:38 | URNOTE ---
Request received for authorization for Taxol ([id number]). Prior authorization is not required per [facility] Ref# [id number].
[2023-12-06 13:01] VITALS: BP 125/85; PULSE 74; RESP 18; TEMP 36.3; O2SAT 99
[2023-12-06] MEDS: SODIUM CHLORIDE 0.9 % (FLUSH) 10 ML SYRINGE IVF ×2 (13:20→16:00)
[2023-12-06] MEDS: PALONOSETRON 0.25 MG/5 ML inj IV (13:39)
[2023-12-06] MEDS: dexAMETHasone 10 MG/ML inj IVP (13:42)
[2023-12-06] MEDS: FOSAPREPITANT 150 MG inj 150 MG in 0.9 % SODIUM CHLORIDE 250 ml 250 ML 510 MG IVPB (13:46)
[2023-12-06] MEDS: DOXOrubicin 2 MG/ML inj 100 MG IVP (14:30)
[2023-12-06] MEDS: cycloPHOSphamide 1,000 MG, TUBING SECONDARY 1 EACH in 0.9 % SODIUM CHLORIDE 250 ml 250 ML 255 MG IV (14:55)
[2023-12-06] MEDS: HEPARIN 500 UNIT/5 ML SYRINGE IVF (16:01)
[2023-12-07] MEDS: PEGFILGRASTIM-JMDB (Fulphila) 6 MG/0.6 ML SUBCUT (14:46)
[2023-12-07 14:51] VITALS: BP 116/76; PULSE 76; RESP 16; TEMP 36.8; O2SAT 98
--- NOTE | 2023-12-13 15:37 | ONC.NURNOTE ---
patient phoned- starting on amoxicillin and prednisone for a sinus infrection advised to call next week if she still has symptoms of an infection prior to chemotherapy treatment
[2023-12-18 14:38] VITALS: BP 128/82; PULSE 77; RESP 16; TEMP 36.4; O2SAT 92
[2023-12-18] MEDS: GOSERELIN ACETATE 3.6 MG IMPLANT SUBCUT (14:49)
[2023-12-21 08:34] LABS: Basophils Percent Auto 0.2 % (0.0-3.0); Eosinophils Percent Auto 0.2 % (0.0-7.0); Hematocrit 34.6 % (33.0-51.0); Hemoglobin* 11.3 gm/dL (12.0-16.0); Immature Granulocytes Pct Auto 7.9 %; Lymphocytes Percent Auto 10.7 % (20-44); Mean Corpuscular HGB Conc 33 gm/dL (32-36); Mean Corpuscular Hemoglobin 31 pg (26-34); Mean Corpuscular Volume 94 fL (80-100); Monocytes Percent Auto 6.5 % (0.0-11.0); Neutrophils Percent Auto 74.5 % (42.0-72.0); Platelet Count* 341 K/uL (140-440); RDW Coefficient of Variation % 14.7 % (11.5-15.5); Red Blood Count 3.68 m/uL (4.00-5.20); White Blood Count* 12.27 K/uL (4.50-11.00)
[2023-12-21 08:35] LABS: Slide Review Reflex No
[2023-12-21 08:46] LABS: Albumin* 4.5 g/dL (3.3-5.0); Chloride* 104 mmol/L (96-114)
[2023-12-21 08:47] LABS: Potassium* 4.2 mmol/L (3.6-5.1); Sodium* 139 mmol/L (135-149)
[2023-12-21 08:49] LABS: Anion Gap 9 mEq/L (7-15); Aspartate Amino Transferase* 23 U/L (12-35); Bilirubin Total* 0.2 mg/dL (0.1-1.5); Carbon Dioxide* 26 mmol/L (20-32); Creatinine* 0.7 mg/dL (0.5-1.5); Est. Creatinine Clearance* 83.03; Estimated Glomerular Filt Rate 114 ml/min; Total Protein* 7.4 g/dL (6.0-8.3)
[2023-12-21 08:50] LABS: Alanine Aminotransferase* 18 U/L (4-35); Alkaline Phosphatase* 90 U/L (40-150); Blood Urea Nitrogen* 14 mg/dL (5-24); Calcium* 9.2 mg/dL (8.4-10.6); Glucose* 122 mg/dL (60-115)
[2023-12-21 09:07] LABS: HCG Quantitative* < 2.39 mIU/mL
[2023-12-21] MEDS: dexAMETHasone 4 MG TABLET 20 MG PO (09:37)
[2023-12-21] MEDS: diphenhydrAMINE 25 MG CAPSULE 50 MG PO (09:38)
[2023-12-21] MEDS: ONDANSETRON ODT 4 MG TAB 8 MG PO (09:38)
[2023-12-21] MEDS: FAMOTIDINE 20 MG TABLET PO (09:39)
[2023-12-21] MEDS: TUBING PRIMARY IV (10:47)
[2023-12-21] MEDS: [UNRECOGNIZED DRUG - OTHER] IV (10:47)
[2023-12-21] MEDS: MICRON FILTER SET IV (10:47)
[2023-12-21] MEDS: IN LINE IV (10:47)
[2023-12-21] MEDS: PACLITAXEL IV (10:47)
[2023-12-21] MEDS: SODIUM CHLORIDE 0.9 % (FLUSH) 10 ML SYRINGE IVF (12:07)
[2023-12-21] MEDS: 0.9 % SODIUM CHLORIDE 250 ml IV (12:07)
[2023-12-21] MEDS: HEPARIN 500 UNIT/5 ML SYRINGE IVF (12:07)
--- NOTE | 2023-12-22 09:49 | ONC.NURNOTE ---
Message left for patient in follow up to new start Taxol. Patient encouraged to call back with questions or concerns.
[2023-12-28 11:14] LABS: Basophils Absolute Auto 0.05 K/uL (0.00-0.30); Basophils Percent Auto 1.1 % (0.0-3.0); Eosinophils Absolute Auto 0.02 K/uL (0.00-0.50); Eosinophils Percent Auto 0.4 % (0.0-7.0); Hematocrit 32.5 % (33.0-51.0); Hemoglobin* 10.8 gm/dL (12.0-16.0); Immature Granulocytes Abs Auto 0.03 K/uL (0.00-0.30); Immature Granulocytes Pct Auto 0.6 %; Lymphocytes Percent Auto 13.9 % (20-44); Mean Corpuscular HGB Conc 33 gm/dL (32-36); Mean Corpuscular Hemoglobin 31 pg (26-34); Mean Corpuscular Volume 93 fL (80-100); Monocytes Percent Auto 11.2 % (0.0-11.0); Neutrophils Percent Auto 72.8 % (42.0-72.0); Platelet Count* 355 K/uL (140-440); RDW Coefficient of Variation % 15.4 % (11.5-15.5); Red Blood Count 3.51 m/uL (4.00-5.20); White Blood Count* 4.74 K/uL (4.50-11.00)
[2023-12-28 11:18] LABS: Slide Review Reflex No
[2023-12-28 11:29] VITALS: BP 126/85; PULSE 98; RESP 16; TEMP 35.8; O2SAT 99
[2023-12-28 11:33] LABS: Albumin* 4.4 g/dL (3.3-5.0); Chloride* 103 mmol/L (96-114); Potassium* 3.7 mmol/L (3.6-5.1); Sodium* 138 mmol/L (135-149)
[2023-12-28 11:35] LABS: Bilirubin Total* 0.4 mg/dL (0.1-1.5); Creatinine* 0.6 mg/dL (0.5-1.5); Est. Creatinine Clearance* 101.53; Estimated Glomerular Filt Rate 118 ml/min
[2023-12-28 11:36] LABS: Alanine Aminotransferase* 23 U/L (4-35); Alkaline Phosphatase* 61 U/L (40-150); Anion Gap 10 mEq/L (7-15); Aspartate Amino Transferase* 21 U/L (12-35); Blood Urea Nitrogen* 13 mg/dL (5-24); Calcium* 8.9 mg/dL (8.4-10.6); Carbon Dioxide* 25 mmol/L (20-32); Glucose* 119 mg/dL (60-115); Total Protein* 7.2 g/dL (6.0-8.3)
[2023-12-28 11:56] LABS: HCG Quantitative* < 2.39 mIU/mL
[2023-12-28] MEDS: diphenhydrAMINE 25 MG CAPSULE 50 MG PO (12:26)
[2023-12-28] MEDS: ONDANSETRON ODT 4 MG TAB 8 MG PO (12:26)
[2023-12-28] MEDS: dexAMETHasone 4 MG TABLET 20 MG PO (12:41)
[2023-12-28] MEDS: FAMOTIDINE 20 MG TABLET PO (12:41)
[2023-12-28] MEDS: 0.9 % SODIUM CHLORIDE 250 ml IV (13:15)
[2023-12-28] MEDS: TUBING PRIMARY IV (13:44)
[2023-12-28] MEDS: IN LINE IV (13:44)
[2023-12-28] MEDS: [UNRECOGNIZED DRUG - OTHER] IV (13:44)
[2023-12-28] MEDS: MICRON FILTER SET IV (13:44)
[2023-12-28] MEDS: PACLITAXEL IV (13:44)
[2023-12-28] MEDS: HEPARIN 500 UNIT/5 ML SYRINGE IVF (14:55)
[2023-12-28] MEDS: SODIUM CHLORIDE 0.9 % (FLUSH) 10 ML SYRINGE IVF (14:55)
[2024-01-04 09:24] LABS: Basophils Percent Auto 1.1 % (0.0-3.0); Eosinophils Percent Auto 1.1 % (0.0-7.0); Hematocrit 33.4 % (33.0-51.0); Hemoglobin* 11.2 gm/dL (12.0-16.0); Immature Granulocytes Pct Auto 1.1 %; Lymphocytes Percent Auto 35.1 % (20-44); Mean Corpuscular HGB Conc 34 gm/dL (32-36); Mean Corpuscular Hemoglobin 31 pg (26-34); Mean Corpuscular Volume 93 fL (80-100); Monocytes Percent Auto 16.2 % (0.0-11.0); Neutrophils Percent Auto 45.4 % (42.0-72.0); Platelet Count* 259 K/uL (140-440); RDW Coefficient of Variation % 15.5 % (11.5-15.5); Red Blood Count 3.58 m/uL (4.00-5.20); White Blood Count* 2.71 K/uL (4.50-11.00)
[2024-01-04 09:27] LABS: Slide Review Reflex No
[2024-01-04 09:38] LABS: Albumin* 4.3 g/dL (3.3-5.0); Chloride* 104 mmol/L (96-114)
[2024-01-04 09:39] LABS: Potassium* 3.7 mmol/L (3.6-5.1); Sodium* 138 mmol/L (135-149)
[2024-01-04 09:41] LABS: Alkaline Phosphatase* 61 U/L (40-150); Anion Gap 8 mEq/L (7-15); Aspartate Amino Transferase* 18 U/L (12-35); Bilirubin Total* 0.3 mg/dL (0.1-1.5); Blood Urea Nitrogen* 12 mg/dL (5-24); Carbon Dioxide* 26 mmol/L (20-32); Creatinine* 0.6 mg/dL (0.5-1.5); Est. Creatinine Clearance* 101.53; Estimated Glomerular Filt Rate 118 ml/min; Total Protein* 7.1 g/dL (6.0-8.3)
[2024-01-04 09:42] LABS: Alanine Aminotransferase* 22 U/L (4-35); Glucose* 120 mg/dL (60-115)
[2024-01-04 09:58] LABS: HCG Quantitative* < 2.39 mIU/mL
[2024-01-04] MEDS: dexAMETHasone 4 MG TABLET 20 MG PO (10:30)
[2024-01-04] MEDS: FAMOTIDINE 20 MG TABLET PO (10:32)
[2024-01-04] MEDS: ONDANSETRON ODT 4 MG TAB 8 MG PO (10:32)
[2024-01-04] MEDS: diphenhydrAMINE 25 MG CAPSULE PO (10:32)
[2024-01-04] MEDS: MICRON FILTER SET IV (11:41)
[2024-01-04] MEDS: PACLITAXEL IV (11:41)
[2024-01-04] MEDS: [UNRECOGNIZED DRUG - OTHER] IV (11:41)
[2024-01-04] MEDS: TUBING PRIMARY IV (11:41)
[2024-01-04] MEDS: IN LINE IV (11:41)
[2024-01-04] MEDS: SODIUM CHLORIDE 0.9 % (FLUSH) 10 ML SYRINGE IVF (12:49)
[2024-01-04] MEDS: HEPARIN 500 UNIT/5 ML SYRINGE IVF (12:49)
[2024-01-11 10:57] VITALS: BP 131/88; PULSE 81; RESP 16; TEMP 36.4; O2SAT 98
[2024-01-11 11:16] LABS: Basophils Absolute Auto 0.04 K/uL (0.00-0.30); Basophils Percent Auto 0.7 % (0.0-3.0); Eosinophils Absolute Auto 0.08 K/uL (0.00-0.50); Eosinophils Percent Auto 1.4 % (0.0-7.0); Hematocrit 33.9 % (33.0-51.0); Hemoglobin* 11.2 gm/dL (12.0-16.0); Immature Granulocytes Abs Auto 0.03 K/uL (0.00-0.30); Immature Granulocytes Pct Auto 0.5 %; Lymphocytes Absolute Auto 1.91 K/uL (0.90-2.90); Lymphocytes Percent Auto 32.7 % (20-44); Mean Corpuscular HGB Conc 33 gm/dL (32-36); Mean Corpuscular Hemoglobin 31 pg (26-34); Mean Corpuscular Volume 94 fL (80-100); Monocytes Percent Auto 4.8 % (0.0-11.0); Neutrophils Percent Auto 59.9 % (42.0-72.0); Platelet Count* 346 K/uL (140-440); RDW Coefficient of Variation % 15.7 % (11.5-15.5); Red Blood Count 3.59 m/uL (4.00-5.20); White Blood Count* 5.84 K/uL (4.50-11.00)
[2024-01-11 11:19] LABS: Slide Review Reflex No
[2024-01-11 11:38] LABS: Chloride* 104 mmol/L (96-114)
[2024-01-11 11:39] LABS: Albumin* 4.2 g/dL (3.3-5.0); Potassium* 3.6 mmol/L (3.6-5.1); Sodium* 137 mmol/L (135-149)
[2024-01-11 11:41] LABS: Anion Gap 7 mEq/L (7-15); Carbon Dioxide* 26 mmol/L (20-32); Creatinine* 0.7 mg/dL (0.5-1.5); Est. Creatinine Clearance* 83.03; Estimated Glomerular Filt Rate 114 ml/min
[2024-01-11 11:42] LABS: Alanine Aminotransferase* 18 U/L (4-35); Alkaline Phosphatase* 65 U/L (40-150); Aspartate Amino Transferase* 18 U/L (12-35); Bilirubin Total* 0.2 mg/dL (0.1-1.5); Blood Urea Nitrogen* 15 mg/dL (5-24); Calcium* 9.1 mg/dL (8.4-10.6); Glucose* 96 mg/dL (60-115); Total Protein* 6.9 g/dL (6.0-8.3)
[2024-01-11 11:57] LABS: HCG Quantitative* < 2.39 mIU/mL
[2024-01-11] MEDS: dexAMETHasone 4 MG TABLET 20 MG PO (12:16)
[2024-01-11] MEDS: diphenhydrAMINE 25 MG CAPSULE PO (12:19)
[2024-01-11] MEDS: FAMOTIDINE 20 MG TABLET PO (12:19)
[2024-01-11] MEDS: ONDANSETRON ODT 4 MG TAB 8 MG PO (12:30)
[2024-01-11] MEDS: PACLITAXEL IV (12:53)
[2024-01-11] MEDS: IN LINE IV (12:53)
[2024-01-11] MEDS: TUBING PRIMARY IV (12:53)
[2024-01-11] MEDS: MICRON FILTER SET IV (12:53)
[2024-01-11] MEDS: [UNRECOGNIZED DRUG - OTHER] IV (12:53)
[2024-01-11] MEDS: SODIUM CHLORIDE 0.9 % (FLUSH) 10 ML SYRINGE IVF (14:18)
[2024-01-11] MEDS: HEPARIN 500 UNIT/5 ML SYRINGE IVF (14:18)
[2024-01-18] MEDS: SODIUM CHLORIDE 0.9 % (FLUSH) 10 ML SYRINGE IVF ×2 (11:10→14:35)
[2024-01-18 11:20] LABS: Basophils Absolute Auto 0.03 K/uL (0.00-0.30); Basophils Percent Auto 0.5 % (0.0-3.0); Eosinophils Absolute Auto 0.06 K/uL (0.00-0.50); Eosinophils Percent Auto 0.9 % (0.0-7.0); Hematocrit 36.3 % (33.0-51.0); Hemoglobin* 12.1 gm/dL (12.0-16.0); Immature Granulocytes Abs Auto 0.07 K/uL (0.00-0.30); Immature Granulocytes Pct Auto 1.1 %; Lymphocytes Percent Auto 22.6 % (20-44); Mean Corpuscular HGB Conc 33 gm/dL (32-36); Mean Corpuscular Hemoglobin 32 pg (26-34); Mean Corpuscular Volume 95 fL (80-100); Monocytes Percent Auto 6.6 % (0.0-11.0); Neutrophils Absolute Auto 4.53 K/uL (1.7-7.0); Neutrophils Percent Auto 68.3 % (42.0-72.0); Platelet Count* 332 K/uL (140-440); RDW Coefficient of Variation % 15.1 % (11.5-15.5); Red Blood Count 3.82 m/uL (4.00-5.20); White Blood Count* 6.63 K/uL (4.50-11.00)
[2024-01-18 11:26] LABS: Slide Review Reflex No
[2024-01-18 11:35] LABS: Albumin* 4.6 g/dL (3.3-5.0); Chloride* 104 mmol/L (96-114); Potassium* 3.8 mmol/L (3.6-5.1); Sodium* 136 mmol/L (135-149)
[2024-01-18 11:37] LABS: Bilirubin Total* 0.2 mg/dL (0.1-1.5); Creatinine* 0.5 mg/dL (0.5-1.5); Est. Creatinine Clearance* 116.25; Estimated Glomerular Filt Rate 124 ml/min
[2024-01-18 11:38] LABS: Alanine Aminotransferase* 18 U/L (4-35); Alkaline Phosphatase* 67 U/L (40-150); Anion Gap 6 mEq/L (7-15); Aspartate Amino Transferase* 18 U/L (12-35); Blood Urea Nitrogen* 12 mg/dL (5-24); Carbon Dioxide* 26 mmol/L (20-32); Glucose* 92 mg/dL (60-115); Total Protein* 7.4 g/dL (6.0-8.3)
[2024-01-18 11:39] LABS: Calcium* 9.8 mg/dL (8.4-10.6)
[2024-01-18 11:42] VITALS: BP 137/87; PULSE 80; RESP 16; TEMP 37.1; O2SAT 98
[2024-01-18 12:09] LABS: HCG Quantitative* < 2.39 mIU/mL
[2024-01-18] MEDS: ONDANSETRON ODT 4 MG TAB 8 MG PO (12:31)
[2024-01-18] MEDS: diphenhydrAMINE 25 MG CAPSULE PO (12:31)
[2024-01-18] MEDS: dexAMETHasone 4 MG TABLET 20 MG PO (12:31)
[2024-01-18] MEDS: FAMOTIDINE 20 MG TABLET PO (12:36)
[2024-01-18] MEDS: [UNRECOGNIZED DRUG - OTHER] IV (13:24)
[2024-01-18] MEDS: IN LINE IV (13:24)
[2024-01-18] MEDS: PACLITAXEL IV (13:24)
[2024-01-18] MEDS: TUBING PRIMARY IV (13:24)
[2024-01-18] MEDS: MICRON FILTER SET IV (13:24)
[2024-01-18] MEDS: HEPARIN 500 UNIT/5 ML SYRINGE IVF (14:35)
[2024-01-18] MEDS: GOSERELIN ACETATE 3.6 MG IMPLANT SUBCUT (14:36)
[2024-01-26 11:01] VITALS: BP 135/84; PULSE 90; RESP 17; TEMP 36.2; O2SAT 98
[2024-01-26 11:25] LABS: Basophils Absolute Auto 0.01 K/uL (0.00-0.30); Basophils Percent Auto 0.2 % (0.0-3.0); Eosinophils Absolute Auto 0.06 K/uL (0.00-0.50); Eosinophils Percent Auto 1.1 % (0.0-7.0); Hematocrit 35.6 % (33.0-51.0); Hemoglobin* 11.9 gm/dL (12.0-16.0); Immature Granulocytes Abs Auto 0.04 K/uL (0.00-0.30); Immature Granulocytes Pct Auto 0.7 %; Lymphocytes Percent Auto 22.1 % (20-44); Mean Corpuscular HGB Conc 33 gm/dL (32-36); Mean Corpuscular Hemoglobin 32 pg (26-34); Mean Corpuscular Volume 95 fL (80-100); Monocytes Percent Auto 8.3 % (0.0-11.0); Neutrophils Absolute Auto 3.68 K/uL (1.7-7.0); Neutrophils Percent Auto 67.6 % (42.0-72.0); Platelet Count* 341 K/uL (140-440); RDW Coefficient of Variation % 14.5 % (11.5-15.5); Red Blood Count 3.74 m/uL (4.00-5.20); White Blood Count* 5.44 K/uL (4.50-11.00)
[2024-01-26 11:39] LABS: Albumin* 4.3 g/dL (3.3-5.0); Chloride* 106 mmol/L (96-114); Potassium* 3.7 mmol/L (3.6-5.1); Sodium* 140 mmol/L (135-149)
[2024-01-26 11:41] LABS: Creatinine* 0.6 mg/dL (0.5-1.5); Est. Creatinine Clearance* 96.87; Estimated Glomerular Filt Rate 118 ml/min
[2024-01-26 11:42] LABS: Alanine Aminotransferase* 16 U/L (4-35); Alkaline Phosphatase* 69 U/L (40-150); Anion Gap 9 mEq/L (7-15); Aspartate Amino Transferase* 16 U/L (12-35); Bilirubin Total* 0.1 mg/dL (0.1-1.5); Blood Urea Nitrogen* 16 mg/dL (5-24); Carbon Dioxide* 25 mmol/L (20-32); Glucose* 128 mg/dL (60-115); Total Protein* 6.9 g/dL (6.0-8.3)
[2024-01-26 11:43] LABS: Calcium* 9.2 mg/dL (8.4-10.6)
[2024-01-26 11:44] LABS: Slide Review Reflex No
[2024-01-26 12:06] LABS: HCG Quantitative* < 2.39 mIU/mL
[2024-01-26] MEDS: diphenhydrAMINE 25 MG CAPSULE PO (12:26)
[2024-01-26] MEDS: ONDANSETRON ODT 4 MG TAB 8 MG PO (12:26)
[2024-01-26] MEDS: dexAMETHasone 4 MG TABLET 20 MG PO (12:27)
[2024-01-26] MEDS: FAMOTIDINE 20 MG TABLET PO (12:27)
[2024-01-26] MEDS: PACLITAXEL IV (13:06)
[2024-01-26] MEDS: IN LINE IV (13:06)
[2024-01-26] MEDS: [UNRECOGNIZED DRUG - OTHER] IV (13:06)
[2024-01-26] MEDS: TUBING PRIMARY IV (13:06)
[2024-01-26] MEDS: MICRON FILTER SET IV (13:06)
[2024-01-26] MEDS: SODIUM CHLORIDE 0.9 % (FLUSH) 10 ML SYRINGE IVF (14:18)
[2024-01-26] MEDS: HEPARIN 500 UNIT/5 ML SYRINGE IVF (14:18)
[2024-02-01 10:55] VITALS: BP 116/82; PULSE 104; RESP 16; TEMP 37.2; O2SAT 97
[2024-02-01 11:19] LABS: Basophils Absolute Auto 0.02 K/uL (0.00-0.30); Basophils Percent Auto 0.2 % (0.0-3.0); Hematocrit 36.2 % (33.0-51.0); Hemoglobin* 12.1 gm/dL (12.0-16.0); Immature Granulocytes Abs Auto 0.06 K/uL (0.00-0.30); Immature Granulocytes Pct Auto 0.6 %; Lymphocytes Percent Auto 7.6 % (20-44); Mean Corpuscular HGB Conc 33 gm/dL (32-36); Mean Corpuscular Hemoglobin 32 pg (26-34); Mean Corpuscular Volume 96 fL (80-100); Neutrophils Percent Auto 88.6 % (42.0-72.0); Platelet Count* 298 K/uL (140-440); RDW Coefficient of Variation % 14.2 % (11.5-15.5); Red Blood Count 3.77 m/uL (4.00-5.20); White Blood Count* 10.57 K/uL (4.50-11.00)
[2024-02-01 11:32] LABS: Chloride* 103 mmol/L (96-114)
[2024-02-01 11:33] LABS: Albumin* 4.6 g/dL (3.3-5.0); Potassium* 3.2 mmol/L (3.6-5.1); Sodium* 137 mmol/L (135-149)
[2024-02-01 11:35] LABS: Creatinine* 0.7 mg/dL (0.5-1.5); Est. Creatinine Clearance* 83.03; Estimated Glomerular Filt Rate 114 ml/min
[2024-02-01 11:36] LABS: Alanine Aminotransferase* 21 U/L (4-35); Alkaline Phosphatase* 56 U/L (40-150); Aspartate Amino Transferase* 20 U/L (12-35); Bilirubin Total* 0.5 mg/dL (0.1-1.5); Blood Urea Nitrogen* 15 mg/dL (5-24); Calcium* 9.3 mg/dL (8.4-10.6); Carbon Dioxide* 20 mmol/L (20-32); Glucose* 221 mg/dL (60-115); Total Protein* 7.3 g/dL (6.0-8.3)
[2024-02-01 11:46] LABS: Slide Review Reflex No
[2024-02-01 11:51] LABS: Anion Gap 14 mEq/L (7-15)
[2024-02-01 11:54] LABS: HCG Quantitative* < 2.39 mIU/mL
[2024-02-01] MEDS: SODIUM CHLORIDE 0.9 % (FLUSH) 10 ML SYRINGE IVF (13:15)
[2024-02-01] MEDS: HEPARIN 500 UNIT/5 ML SYRINGE IVF (13:15)
[2024-02-01 14:16] LABS: PCR FLU A Negative PCR FLU A (Negative); PCR FLU B Negative PCR FLU B (Negative); PCR RSV Negative PCR RSV (Negative); SARS PCR* Negative SARS-CoV-2 (Negative)
--- NOTE | 2024-02-01 15:36 | ONC.NURNOTE ---
Taxol held today, see Kerri Medina APRN note. Pt tachycardic, WBC significantly higher from last week. New cough. Pt evaluated by Kerri Pedroza APRN today.
--- NOTE | 2024-02-02 11:29 | ONC.NURNOTE ---
Addendum entered by Marilyn Antonio RN 02/02/24 11:43: Pt scheduled to see PCP 02/06 at 8am to f/u pneumonia;prior to next chemotx. Original Note: Called pt to check-in following work up yesterday for pneumonia. She was unable to sampler pickup ABX last night d/t pharm closed, but picked up both this morning and has begun them. She is in the process of scheduling to see a PCP early next week. Pt denies questions/concerns. She is feeling today similar to yesterday; no worsening of symptoms. Will check in with pt early next week; RTC 02/07 for possible resume chemotx.
--- NOTE | 2024-02-05 14:25 | ONC.NURNOTE ---
Call to patient for an update on her condition. Patient states she is feeling much better. She returned to work today. She has been afebrile for 2 days. She is coughing less. She has follow up with PCP on Monday and will tentatively have chemotherapy on 02/07. Patient informed that Dr. Maharaj is recommending she take a Potassium supplement for 5 days for hypokalemia. Rx has been sent to her pharmacy. Patient verbalizes understanding of plan.
[2024-02-08 10:48] VITALS: BP 128/78; PULSE 81; RESP 16; TEMP 36.6; O2SAT 98
[2024-02-08 11:23] LABS: Basophils Absolute Auto 0.02 K/uL (0.00-0.30); Basophils Percent Auto 0.4 % (0.0-3.0); Eosinophils Absolute Auto 0.06 K/uL (0.00-0.50); Eosinophils Percent Auto 1.3 % (0.0-7.0); Hemoglobin* 11.7 gm/dL (12.0-16.0); Immature Granulocytes Abs Auto 0.02 K/uL (0.00-0.30); Immature Granulocytes Pct Auto 0.4 %; Lymphocytes Absolute Auto 1.25 K/uL (0.90-2.90); Lymphocytes Percent Auto 26.2 % (20-44); Mean Corpuscular HGB Conc 33 gm/dL (32-36); Mean Corpuscular Hemoglobin 32 pg (26-34); Mean Corpuscular Volume 95 fL (80-100); Monocytes Percent Auto 9.2 % (0.0-11.0); Neutrophils Absolute Auto 2.98 K/uL (1.7-7.0); Neutrophils Percent Auto 62.5 % (42.0-72.0); Platelet Count* 389 K/uL (140-440); RDW Coefficient of Variation % 13.2 % (11.5-15.5); Red Blood Count 3.69 m/uL (4.00-5.20); White Blood Count* 4.77 K/uL (4.50-11.00)
[2024-02-08 11:24] LABS: Slide Review Reflex No
[2024-02-08 11:35] LABS: Albumin* 4.2 g/dL (3.3-5.0); Chloride* 106 mmol/L (96-114)
[2024-02-08 11:36] LABS: Potassium* 4.2 mmol/L (3.6-5.1); Sodium* 141 mmol/L (135-149)
[2024-02-08 11:38] LABS: Alanine Aminotransferase* 18 U/L (4-35); Alkaline Phosphatase* 61 U/L (40-150); Anion Gap 12 mEq/L (7-15); Aspartate Amino Transferase* 18 U/L (12-35); Bilirubin Total* 0.2 mg/dL (0.1-1.5); Blood Urea Nitrogen* 9 mg/dL (5-24); Carbon Dioxide* 23 mmol/L (20-32); Creatinine* 0.6 mg/dL (0.5-1.5); Est. Creatinine Clearance* 96.87; Estimated Glomerular Filt Rate 118 ml/min; Glucose* 123 mg/dL (60-115)
[2024-02-08 12:22] LABS: HCG Quantitative* < 2.39 mIU/mL
[2024-02-08] MEDS: ONDANSETRON ODT 4 MG TAB 8 MG PO (12:36)
[2024-02-08] MEDS: dexAMETHasone 4 MG TABLET 20 MG PO (12:37)
[2024-02-08] MEDS: diphenhydrAMINE 25 MG CAPSULE PO (12:38)
[2024-02-08] MEDS: FAMOTIDINE 20 MG TABLET PO (12:39)
[2024-02-08] MEDS: IN LINE IV (13:25)
[2024-02-08] MEDS: PACLITAXEL IV (13:25)
[2024-02-08] MEDS: TUBING PRIMARY IV (13:25)
[2024-02-08] MEDS: [UNRECOGNIZED DRUG - OTHER] IV (13:25)
[2024-02-08] MEDS: MICRON FILTER SET IV (13:25)
[2024-02-08] MEDS: HEPARIN 500 UNIT/5 ML SYRINGE IVF (15:01)
[2024-02-08] MEDS: SODIUM CHLORIDE 0.9 % (FLUSH) 10 ML SYRINGE IVF (15:01)
[2024-02-15 10:57] VITALS: BP 123/82; PULSE 90; RESP 16; TEMP 36; O2SAT 100
[2024-02-15 11:22] LABS: Basophils Absolute Auto 0.02 K/uL (0.00-0.30); Basophils Percent Auto 0.3 % (0.0-3.0); Eosinophils Absolute Auto 0.04 K/uL (0.00-0.50); Eosinophils Percent Auto 0.6 % (0.0-7.0); Hematocrit 36.4 % (33.0-51.0); Immature Granulocytes Abs Auto 0.04 K/uL (0.00-0.30); Immature Granulocytes Pct Auto 0.6 %; Lymphocytes Absolute Auto 1.37 K/uL (0.90-2.90); Mean Corpuscular HGB Conc 33 gm/dL (32-36); Mean Corpuscular Hemoglobin 31 pg (26-34); Mean Corpuscular Volume 95 fL (80-100); Monocytes Percent Auto 6.7 % (0.0-11.0); Neutrophils Absolute Auto 4.92 K/uL (1.7-7.0); Neutrophils Percent Auto 71.8 % (42.0-72.0); Platelet Count* 443 K/uL (140-440); RDW Coefficient of Variation % 13.1 % (11.5-15.5); Red Blood Count 3.82 m/uL (4.00-5.20); White Blood Count* 6.85 K/uL (4.50-11.00)
[2024-02-15 11:24] LABS: Slide Review Reflex No
[2024-02-15 11:35] LABS: Albumin* 4.4 g/dL (3.3-5.0); Chloride* 106 mmol/L (96-114); Sodium* 141 mmol/L (135-149)
[2024-02-15 11:36] LABS: Potassium* 3.5 mmol/L (3.6-5.1)
[2024-02-15 11:38] LABS: Anion Gap 13 mEq/L (7-15); Blood Urea Nitrogen* 13 mg/dL (5-24); Carbon Dioxide* 22 mmol/L (20-32); Creatinine* 0.7 mg/dL (0.5-1.5); Est. Creatinine Clearance* 83.03; Estimated Glomerular Filt Rate 114 ml/min
[2024-02-15 11:39] LABS: Alanine Aminotransferase* 24 U/L (4-35); Alkaline Phosphatase* 64 U/L (40-150); Aspartate Amino Transferase* 29 U/L (12-35); Bilirubin Total* 0.6 mg/dL (0.1-1.5); Calcium* 9.3 mg/dL (8.4-10.6); Glucose* 114 mg/dL (60-115); Total Protein* 7.2 g/dL (6.0-8.3)
[2024-02-15 12:04] LABS: HCG Quantitative* < 2.39 mIU/mL
[2024-02-15] MEDS: dexAMETHasone 4 MG TABLET 20 MG PO (12:30)
[2024-02-15] MEDS: ONDANSETRON ODT 4 MG TAB 8 MG PO (12:31)
[2024-02-15] MEDS: diphenhydrAMINE 25 MG CAPSULE PO (12:31)
[2024-02-15] MEDS: FAMOTIDINE 20 MG TABLET PO (12:33)
[2024-02-15] MEDS: [UNRECOGNIZED DRUG - OTHER] IV (13:09)
[2024-02-15] MEDS: IN LINE IV (13:09)
[2024-02-15] MEDS: TUBING PRIMARY IV (13:09)
[2024-02-15] MEDS: MICRON FILTER SET IV (13:09)
[2024-02-15] MEDS: PACLITAXEL IV (13:09)
[2024-02-15] MEDS: GOSERELIN ACETATE 3.6 MG IMPLANT SUBCUT (14:22)
[2024-02-22] MEDS: SODIUM CHLORIDE 0.9 % (FLUSH) 10 ML SYRINGE IVF ×2 (11:10→15:05)
[2024-02-22 11:37] LABS: Basophils Absolute Auto 0.02 K/uL (0.00-0.30); Basophils Percent Auto 0.3 % (0.0-3.0); Eosinophils Absolute Auto 0.14 K/uL (0.00-0.50); Eosinophils Percent Auto 1.8 % (0.0-7.0); Hematocrit 37.3 % (33.0-51.0); Hemoglobin* 12.4 gm/dL (12.0-16.0); Immature Granulocytes Abs Auto 0.02 K/uL (0.00-0.30); Immature Granulocytes Pct Auto 0.3 %; Lymphocytes Percent Auto 17.8 % (20-44); Mean Corpuscular HGB Conc 33 gm/dL (32-36); Mean Corpuscular Hemoglobin 32 pg (26-34); Mean Corpuscular Volume 96 fL (80-100); Monocytes Percent Auto 5.7 % (0.0-11.0); Neutrophils Percent Auto 74.1 % (42.0-72.0); Platelet Count* 322 K/uL (140-440); RDW Coefficient of Variation % 13.1 % (11.5-15.5); Red Blood Count 3.89 m/uL (4.00-5.20); White Blood Count* 7.83 K/uL (4.50-11.00)
[2024-02-22 11:47] LABS: Slide Review Reflex No
[2024-02-22 11:53] VITALS: BP 114/78; PULSE 89; RESP 16; TEMP 36.2; O2SAT 98
[2024-02-22 11:56] LABS: Albumin* 4.3 g/dL (3.3-5.0); Chloride* 105 mmol/L (96-114)
[2024-02-22 11:57] LABS: Sodium* 139 mmol/L (135-149)
[2024-02-22 11:59] LABS: Alkaline Phosphatase* 62 U/L (40-150); Anion Gap 8 mEq/L (7-15); Aspartate Amino Transferase* 15 U/L (12-35); Bilirubin Total* 0.3 mg/dL (0.1-1.5); Blood Urea Nitrogen* 19 mg/dL (5-24); Carbon Dioxide* 26 mmol/L (20-32); Creatinine* 0.8 mg/dL (0.5-1.5); Est. Creatinine Clearance* 72.65; Estimated Glomerular Filt Rate 97 ml/min; Total Protein* 7.1 g/dL (6.0-8.3)
[2024-02-22 12:00] LABS: Alanine Aminotransferase* 16 U/L (4-35); Calcium* 9.7 mg/dL (8.4-10.6); Glucose* 110 mg/dL (60-115)
[2024-02-22 12:35] LABS: HCG Quantitative* < 2.39 mIU/mL
[2024-02-22] MEDS: FAMOTIDINE 20 MG TABLET PO (12:59)
[2024-02-22] MEDS: ONDANSETRON ODT 4 MG TAB 8 MG PO (12:59)
[2024-02-22] MEDS: diphenhydrAMINE 25 MG CAPSULE PO (13:00)
[2024-02-22] MEDS: dexAMETHasone 4 MG TABLET 20 MG PO (13:00)
[2024-02-22] MEDS: TUBING PRIMARY IV (13:42)
[2024-02-22] MEDS: IN LINE IV (13:42)
[2024-02-22] MEDS: MICRON FILTER SET IV (13:42)
[2024-02-22] MEDS: [UNRECOGNIZED DRUG - OTHER] IV (13:42)
[2024-02-22] MEDS: PACLITAXEL IV (13:42)
[2024-02-22] MEDS: HEPARIN 500 UNIT/5 ML SYRINGE IVF (15:05)
--- OUTSIDE RECORDS SUMMARY | 2024-02-29 07:06 | XMS_ITS | Clinical Summary ---
Author Organization [facility] Address [place], [place] [address] Care Team Providers Care Sample Prep Technician Name Role Phone Kareen Gan MD Primary Care Provider Allergies No known active allergies Medications norgestimate-ethin yl estradiol, 0.25-35 mg-mcg, (ORTHO-CYCLEN) 0.25-35 mg-mcg tabletIndications: OCP (oral contraceptive pills) initiation Take 1 Tablet by mouth once daily. 84 Tablet 3 Active Active Problems Problem Noted Date Diagnosed [...] 29 weeks. Mild symptoms. Received Paxlovid. IONA Adrian. 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 Patient's last menstrual period was 01/05/2022 (exact date). GBS- Last Tdap- 06/28/16 Last Flu vaccine- none Glucose (GTT) result- OB labs: Recent Labs 03/07/22 0920 03/07/22 0917 HGB 13.8 -- ABORH O Rh Positive -- RCBANTIBODY Negative -- TREPONEPALLI Negative -- RUBELLAIGG 12.40 Positive -- HBSAG Negative -- HEPCABY <0.1 Comment -- [id number] Non Reactive -- CHLAMYDIAPRB -- Negative NGONORRPROBE [...] Encounters Date Type Department Care Team Description 02/07/2024 9:15 AM TELETYPE MECHANIC Ancillary Procedure [facility] [address] [place] [address] 02/07/2024 8:20 AM TELETYPE MECHANIC Office Visit [facility] [address] [place] [address] Rich Alexander MD Concerns (Pneumonia 1 week ago, cancer center wants xray before treatment) 02/07/2024 Travel 02/03/2024 Travel 02/01/2024 Orders Only [facility] Scanner 1 scan: (1-Ord) [facility]V, 02/01/2024 12/06/2023 Telephone [facility] [address] [place] [address] Valentina Jhaveri, MS, [facility] Results (Cancer genetic counseling) from Last 3 Months Immunizations Name Administration Dates Next Due COVID-19 vaccine ([employer] 30mcg/0.3mL) LAURYN De Leon 01/27/2021,01/04/2021 DTP 03/21/1990 [...] drink = 0.6 oz pur e alcohol) [facility] Utilities Answer Date Recorded Do you have trouble paying f or utilities (for example, heat, electricity, water, phone)? Yes 02/03/2024 PHQ-2 Answer Date Recorded PHQ-2 TOTAL SCORE 0 12/21/2022 Social Connections Answer Date Recorded Do you often feel lonely or isolated from those around you? 0 02/03/2024 Financial Resource Strain Answer Date R ecorded Difficulty of Paying Living Expenses 3 02/03/2024 Difficulty of Paying Living Expenses Not on file 02/03/2024 Food Insecurity Answer Date Recorded Do you worry your food will run out before you are able to buy more? 1 02/03/2024 Transportation Needs Answer Date Record ed Does lack of transportation keep you from medica l appointments? 1 02/03/2024 Does lack of transportation keep you from work, meetings or getting things that you need? 1 02/03/2024 Housing Stability Answer Date Recorded What is your housing situation today? 1 02/03/2024 Comments No Sex and Gender Information Value Date Recorded Sex Assigned at Not on file Legal Sex Female 7:13 PM TELETYPE MECHANIC Gender Identity Not on file Sexual Orientation [...] Sign Reading Time Taken Comments Blood Pressure 130/91 02/07/2024 8:26 AM TELETYPE MECHANIC Pulse 88 02/07/2024 8:26 AM TELETYPE MECHANIC Temperature 36.6 C (97.8 F) 02/07/2024 8:26 AM TELETYPE MECHANIC Respiratory Rate 16 07/13/2021 4:31 AM CDT Oxygen Saturation 100% 02/07/2024 8:26 AM TELETYPE MECHANIC Inhaled Oxygen Concentration - - Weight 72.5 kg (159 lb 14.4 oz) 02/07/2024 8:26 AM TELETYPE MECHANIC Height 160 cm (5' 3) 02/07/2024 8:26 AM TELETYPE MECHANIC Body Mass Index 28.33 02/07/2024 8:26 AM TELETYPE MECHANIC Plan of Treatment Upcoming Encounters Date Type Department Care Team (Late st Contact Info) Description 03/05/2024 2:30 PM TELETYPE MECHANIC Office Visit [facility] [address] [place] [address] Chula Restrepo MD [address] [place] [address] Health Maintenance Due Date Last Done Comments Pneumococcal series for age 6-49 (1 of 2 - PCV) 2005 COVID-19 vaccine series (3 - Pfizer risk series) 02/24/2021 01/27/2021, 01/04/2021 Influenza for age 9-49 10/29/2023 Depression screening for age 12+ 12/22/2023 12/21/2022, 04/07/2022, 01/04/2021, Additional history exists BMI (ht and wt on same day) for age 18+ 02/06/2025 02/07/2024, 06/16/2022, 03/10/2022, Additional history exists Pap test for age 21-65 01/04/2026 , 01/04/2021, 08/01/2016, Additional history exists Tetanus booster 08/11/2032 08/11/2022, 06/28/2016 HIV for age 15-65 Completed 03/07/2022 Hepatitis C screening for ag e 18-79 Completed 03/07/2022 Tdap Completed 08/11/2022, 06/28/2016 Procedures Procedure Name Priority Date/Time Associated Diagnosis Comments XR CHEST 2 VIEWS PA AND LATERAL Routine 02/07/2024 8:57 AM TELETYPE MECHANIC Community acquired pneumonia of right middle lobe of lung SCAN-RADIOLOGY REPORT 02/01/2024 12:00 AM TELETYPE MECHANIC LC HIV-1/O/2, 4TH GENERATION Routine 03/07/2022 9:20 AM TELETYPE MECHANIC Encounter for supervision of normal first in first trimester LC HCV ANTIBODY RFX TO QUANT PCR Routine 03/07/2022 9:20 AM TELETYPE MECHANIC Encounter for supervision of normal first in first trimester HPV HIGH RISK Routine 01/04/2021 11:34 AM TELETYPE MECHANIC Pap smear for cervical cancer screening from Last 3 Months or Most Recently Relevant to Health Maintenance Results * XR CHEST 2 VIEWS PA AND LATERAL (02/07/2024 8:57 AM TELETYPE MECHANIC) Anatomical Region Laterality Modality CHEST, THORAX, Lung, HEART Compu adela Radiography 02/07/2024 11:4 3 AM TELETYPE MECHANIC Impressions 02/07/2024 11:43 AM TELETYPE MECHANIC No acute cardiopulmonary process identified. Dictated by Aidan Barbosa MD @ 02/07/2024 11:43:56 AM (Electronically Signed) Narrative 02/07/2024 11:43 AM TELETYPE MECHANIC For Patients: As a result of the Cures Act, medical imaging exams and procedure reports are released immediately into your electronic medical record. You may view this report before your referring provider. If you have questions, please contact your health care provider. INDICATION: Community-acquired pneumonia of the right middle lobe of the lung. Initial diagnosis February 01, 2024. The patient is on chemotherapy for breast cancer. Follow-up. TECHNIQUE: PA and lateral chest x-ray. COMPARISON: None. FINDINGS: Both lungs are expanded without pneumothoraces or nodules. There is no convincing evidence for a focal or diffuse infiltrate. Specifically there is no evidence for right middle lobe pneumonia. No pneumothorax. No pleural effusions. Left-sided Port-A-Cath with its lead tip in superior vena cava. Procedure Note Aidan Barbosa MD - 02/07/2024 For Patients: As a result of the Cures Act, medical imagingexams and procedure reports are released immediately into your electronicmedical record. You may view this report before your referring provider.If you have questions, please contact your health care provider. INDICATION: Community-acquired pneumonia of the right middle lobe of the lung. Initialdiagnosis February 01, 2024. The patient is on chemotherapy for breast cancer. Follow-up. TECHNIQUE: PA and lateral chest x-ray. COMPARISON: None. FINDINGS: Both lungs are expanded without pneumothoraces or nodules. There is noconvincing evidence for a focal or diffuse infiltrate. Specifically there is no evidence for right middle lobe pneumonia. Nopneumothorax. No pleural effusions. Left-sided Port-A-Cath with its lead tip in superior vena cava. IMPRESSION: No acute cardiopulmonary process identified. Dictated by Aidan Barbosa MD @ 02/07/2024 11:43:56 AM (Electronically Signed) us Rich Alexander MD GENERAL IMAGING Final Re sult * SCAN-RADIOLOGY REPORT (02/01/2024 12:00 AM TELETYPE MECHANIC) Anatomical Region Laterality Modality Other us Scanner OTHER Final Result * LC HCV ANTIBODY RFX TO QUANT PCR (03/07/2022 9:20 AM TELETYPE MECHANIC) [facility] HCV Ab <0.1 0.0 - 0.9 s/co ratio 03/11/2022 4:[address] [facility]OTERIC TESTING ([facility]) Blood BLOOD SPECIMEN / Unknown Venipuncture / Unknown 03/07/2022 9:20 AM TELETYPE MECHANIC 03/07/2022 9:24 AM TELETYPE MECHANIC Narrative [facility] ESOTERIC TESTING ([facility]) - 03/11/2022 4:07 AM TELETYPE MECHANIC Performed at: [address] [place] [id number] Hand Painter: Mihir Sauer MD, Phone: [phone] us Kareen Gan MD LABORATORY Final Resul t Performing Organization Address [facility] de Phone Number [facility] ESOTERIC TESTING ([facility]) [address] [place] [address] * HIV-1/O/2, 4TH GENERATION (03/07/2022 9:20 AM TELETYPE MECHANIC) [facility] HIV Scr 4th Gen Non Reactive Non Reactive 03/09/2022 10:[address] [facility]IC TESTING ([facility]) Comment: HIV Negative HIV-1/HIV-2 antibodies and HIV-1 p24 antigen were NOT detected. There is no laboratory evidence of HIV infection. Blood BLOOD SPECIMEN / Unknown Venipuncture / Unknown 03/07/2022 9:20 AM TELETYPE MECHANIC 03/07/2022 9:24 AM TELETYPE MECHANIC Narrative [facility]ERIC TESTING ([facility]) - 03/09/2022 10:06 PM TELETYPE MECHANIC Performed at: [address] [place] [id number] Hand Painter: Mihir Sauer MD, Phone: [phone] us Kareen Gan MD LABORATORY Final Resul t Performing Organization Address [facility] Co de Phone Number [facility]ERIC TESTING ([facility]) [address] [place], [place] [address] * HPV HIGH RISK (01/04/2021 11:34 AM TELETYPE MECHANIC) TYPE 16 Negative Negative 01/08/2021 2:06 PM TELETYPE MECHANIC [facility] TRAL LABORATORY TYPE 18 Negative Negative 01/08/2021 2:06 PM TELETYPE MECHANIC [facility] TRAL LABORATORY OTHER HIGH RISK TYPES Negative Negative 01/08/2021 2:06 PM TELETYPE MECHANIC [facility] TRA LABORATORY Other (Cervical) Non-Blood / Unknown 01/04/2021 11:34 AM TELETYPE MECHANIC 01/04/2021 4:55 PM TELETYPE MECHANIC Narrative [facility] - 01/08/2021 2:06 PM TELETYPE MECHANIC HPV types 16, 18, 31, 33, 35, 39, 45, 51, 52, 56, 58, 59, 66 and 68 DNA were undetectable or below the pre-set threshold. Methodology: John Thuan 4800 HPV Test Little [employer] Final Result [facility] [address] [place] [address], from Last 3 Months or Most Recently Relevant to Health Maintenance Insurance [facility] [employer] Care Teams Sample Prep Technician Relationship Specialty Start Date End Date Kareen Gan MD [address] [place] [address] PCP - General Family Practice 02/23/22
--- OUTSIDE RECORDS SUMMARY | 2024-02-29 07:06 | XMS_ITS | Clinical Summary ---
Author Organization [facility] Address [address] [place] [address] Care Team Providers Care Acura Sales Consultant Name Role Phone Unavailable Primary Care Provider Unavailabl e Source Comments Patient records contain information from all sites at [facility]. For routine questions regarding patient records, call [phone] during business hours, M-F 8:00 AM - 5:00 PM Central Time. Record requests for emergency care only can be directed to [phone] at any time.[facility] Allergies No known active allergies Medications Estarylla [...] your living situation today? 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
--- OUTSIDE RECORDS SUMMARY | 2024-02-29 07:06 | XMS_ITS | Referral Summary ---
Author Organization [facility] Address [address] [place] [address] Care Team Providers Care Wire Spinner Name Role Phone Unavailable Primary Care Provider Unavailabl e Source Comments Patient records contain information from all sites at [facility]. For routine questions regarding patient records, call [phone] during business hours, M-F 8:00 AM - 5:00 PM Central Time. Record requests for emergency care only can be directed to [phone] at any time.[facility] Allergies No known active allergies Medications [...] your living situation today? 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
--- OUTSIDE RECORDS SUMMARY | 2024-02-29 07:06 | XMS_ITS | Continuity of Care Document ---
Author Name NwROMANN User KobleMN-a llowed Address Unknown Organization Unknown Address Unknown Procedures FILTER APPLIED:Only known Procedures with Onset Date within the last 5 years Procedure Date Procedure Provider Additiona l Information Status HEMOGLOBIN (94411) Compl eted ANES/ANALG CS DLVR NEURAXIAL (75492) Completed ANES COMP EMERGENCY COND (49181) Completed MICROBE SUSCEPTIBLE VICENTE (73474) Completed BLOOD CULTURE FOR BACTERIA (40039) Completed GLUCOSE BLOOD TEST (01776) Completed ECHO GUIDE FOR BIOPSY (23592) Completed NEURAXL LBR ANES VAG DLVR (83956) Completed TAP BLOCK BI INJECTION (75325) Completed ROUTINE VENIPUNCTURE (29563) Completed BLOOD TYPING SEROLOGIC RH(D) (34724) Completed BLOOD TYPING SEROLOGIC ABO (30451) Completed RBC ANTIBODY SCREEN (93929) Completed COMPLETE CBC W/AUTO DIFF WBC (44972) Completed INSERT CERVICAL DILATOR (56591) Completed Encounters FILTER APPLIED:Only known Encounters with Admission Date within the last 5 years Encounter Location Admission Discharge Billing Code Manager International A keesha Inpatient [id number] And abbey Romero
--- OUTSIDE RECORDS SUMMARY | 2024-02-29 07:06 | XMS_ITS ---
Author Organization [facility] Address [address] [place] [address] Care Team Providers Care Passenger Service Representative Name Role Phone Unavailable Unavailable Unavailable Surgery Details Not on file Complications Check Surgery Details section. Procedure Estimated Blood Loss Check Surgery Details section. Procedure Findings Check Surgery Details section. Procedure Specimens Taken Check Surgery Details section.
[2024-02-29 11:39] VITALS: BP 130/88; PULSE 87; RESP 16; TEMP 36.6; O2SAT 97
[2024-02-29 11:40] LABS: Basophils Absolute Auto 0.03 K/uL (0.00-0.30); Basophils Percent Auto 0.5 % (0.0-3.0); Eosinophils Absolute Auto 0.06 K/uL (0.00-0.50); Eosinophils Percent Auto 0.9 % (0.0-7.0); Hematocrit 38.5 % (33.0-51.0); Hemoglobin* 12.7 gm/dL (12.0-16.0); Immature Granulocytes Abs Auto 0.03 K/uL (0.00-0.30); Immature Granulocytes Pct Auto 0.5 %; Lymphocytes Absolute Auto 1.36 K/uL (0.90-2.90); Lymphocytes Percent Auto 20.8 % (20-44); Mean Corpuscular HGB Conc 33 gm/dL (32-36); Mean Corpuscular Hemoglobin 32 pg (26-34); Mean Corpuscular Volume 97 fL (80-100); Monocytes Percent Auto 7.6 % (0.0-11.0); Neutrophils Absolute Auto 4.56 K/uL (1.7-7.0); Neutrophils Percent Auto 69.7 % (42.0-72.0); Platelet Count* 364 K/uL (140-440); RDW Coefficient of Variation % 12.9 % (11.5-15.5); Red Blood Count 3.99 m/uL (4.00-5.20); White Blood Count* 6.54 K/uL (4.50-11.00)
[2024-02-29 11:50] LABS: Slide Review Reflex No
[2024-02-29 11:53] LABS: Albumin* 4.4 g/dL (3.3-5.0); Chloride* 104 mmol/L (96-114); Sodium* 139 mmol/L (135-149)
[2024-02-29 11:54] LABS: Potassium* 4.2 mmol/L (3.6-5.1)
[2024-02-29 11:56] LABS: Alanine Aminotransferase* 18 U/L (4-35); Alkaline Phosphatase* 59 U/L (40-150); Anion Gap 8 mEq/L (7-15); Aspartate Amino Transferase* 19 U/L (12-35); Bilirubin Total* 0.2 mg/dL (0.1-1.5); Blood Urea Nitrogen* 15 mg/dL (5-24); Carbon Dioxide* 27 mmol/L (20-32); Creatinine* 0.6 mg/dL (0.5-1.5); Est. Creatinine Clearance* 96.87; Estimated Glomerular Filt Rate 118 ml/min; Glucose* 122 mg/dL (60-115); Total Protein* 7.3 g/dL (6.0-8.3)
[2024-02-29 11:57] LABS: Calcium* 9.3 mg/dL (8.4-10.6)
[2024-02-29 13:05] LABS: HCG Quantitative* < 2.39 mIU/mL
[2024-02-29] MEDS: dexAMETHasone 4 MG TABLET 20 MG PO (13:09)
[2024-02-29] MEDS: FAMOTIDINE 20 MG TABLET PO (13:09)
[2024-02-29] MEDS: diphenhydrAMINE 25 MG CAPSULE PO (13:10)
[2024-02-29] MEDS: ONDANSETRON ODT 4 MG TAB 8 MG PO (13:10)
[2024-02-29] MEDS: MICRON FILTER SET IV (13:50)
[2024-02-29] MEDS: PACLITAXEL IV (13:50)
[2024-02-29] MEDS: [UNRECOGNIZED DRUG - OTHER] IV (13:50)
[2024-02-29] MEDS: IN LINE IV (13:50)
[2024-02-29] MEDS: TUBING PRIMARY IV (13:50)
[2024-02-29] MEDS: ALTEPLASE 2 MG INJ IVF (15:31)
--- NOTE | 2024-02-29 16:55 | ONC.NURNOTE ---
Per nursing team, ~ 1 mL Cathflo instilled 1530 via stopcock method for unflushable port. ~ 1600 2nd (1 mL) instilled using stopcock method. Checked blood return at 1630; negative, still unable to flush. Using 3 way stopcock method, able to remove 2 mL Cathflo. Reviewed with Kerri Gaspar APRN; as heparin is incompatible with Cathflo, did not heplock line. Instead was able to instill ~1 mL NS via stopcock method. Pt returning to [facility] tomorrow am reattempt Cathflo x 2 hrs with stopcock method. Port left accessed with 1 inch needle per pt's preference.
--- OUTSIDE RECORDS SUMMARY | 2024-03-01 07:36 | XMS_ITS | Clinical Summary ---
Author Organization [facility] Address [place], [place] [address] Care Team Providers Care Machine Setter Name Role Phone Kareen Gan MD Primary Care Provider [phone] Allergies No known active allergies Medications norgestimate-ethin [...] Received Paxlovid. IONA Adrian. 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 Patient's last menstrual period was 01/05/2022 (exact date). GBS- Last Tdap- 06/28/16 Last Flu vaccine- none Glucose (GTT) result- OB labs: Recent Labs 03/07/22 0920 03/07/22 0917 HGB 13.8 -- ABORH O Rh Positive -- RCBANTIBODY Negative -- TREPONEPALLI Negative -- RUBELLAIGG 12.40 Positive -- HBSAG Negative -- HEPCABY <0.1 Comment -- [id number] Non Reactive -- CHLAMYDIAPRB -- Negative NGONORRPROBE [...] Department Care Team Description 02/07/2024 9:15 AM HOME CARE ASSISTANT Ancillary Procedure [facility] [address] [place] [address] 02/07/2024 8:20 AM HOME CARE ASSISTANT Office Visit [facility] [address] [place] [address] Rich Alexander MD Concerns (Pneumonia 1 week ago, cancer center wants xray before treatment) 02/07/2024 Travel 02/03/2024 Travel 02/01/2024 Orders Only [facility] Scanner 1 scan: (1-Ord) [facility], 02/01/2024 12/06/2023 Telephone [facility] [address] [place] [address] Valentina Jhaveri, MS, [facility] Results (Cancer genetic counseling) from Last 3 Months Immunizations Name Administration Dates Next Due COVID-19 vaccine (Signifyd 30mcg/0.3mL) LAURYN De Leon 01/27/2021,01/04/2021 DTP 03/21/1990 [...] drink = 0.6 oz pur e alcohol) [facility] Utilities Answer Date Recorded Do you have [...] on file Legal Sex Female 7:13 PM HOME CARE ASSISTANT Gender Identity Not on file Sexual Orientation [...] Comments Blood Pressure 130/91 02/07/2024 8:26 AM HOME CARE ASSISTANT Pulse 88 02/07/2024 8:26 AM HOME CARE ASSISTANT Temperature 36.6 C (97.8 F) 02/07/2024 8:26 AM HOME CARE ASSISTANT Respiratory Rate 16 07/13/2021 4:31 AM CDT Oxygen Saturation 100% 02/07/2024 8:26 AM HOME CARE ASSISTANT Inhaled Oxygen Concentration - - Weight 72.5 kg (159 lb 14.4 oz) 02/07/2024 8:26 AM HOME CARE ASSISTANT Height 160 cm (5' 3) 02/07/2024 8:26 AM HOME CARE ASSISTANT Body Mass Index 28.33 02/07/2024 8:26 AM HOME CARE ASSISTANT Plan of Treatment Upcoming Encounters Date Type Department Care Team (Late st Contact Info) Description 03/05/2024 2:30 PM HOME CARE ASSISTANT Office Visit [facility] [address] [place] [address] Chula Restrepo MD [address] [place] [address] Health Maintenance Due Date Last Done Comments [...] PA AND LATERAL Routine 02/07/2024 8:57 AM HOME CARE ASSISTANT Community acquired pneumonia of right middle lobe of lung SCAN-RADIOLOGY REPORT 02/01/2024 12:00 AM HOME CARE ASSISTANT LC HIV-1/O/2, 4TH GENERATION Routine 03/07/2022 9:20 AM HOME CARE ASSISTANT Encounter for supervision of normal first in first trimester LC HCV ANTIBODY RFX TO QUANT PCR Routine 03/07/2022 9:20 AM HOME CARE ASSISTANT Encounter for supervision of normal first in first trimester HPV HIGH RISK Routine 01/04/2021 11:34 AM HOME CARE ASSISTANT Pap smear for cervical cancer screening from Last 3 Months or Most Recently Relevant to Health Maintenance Results * XR CHEST 2 VIEWS PA AND LATERAL (02/07/2024 8:57 AM HOME CARE ASSISTANT) Anatomical Region Laterality Modality CHEST, THORAX, Lung, HEART Compu adela Radiography 02/07/2024 11:4 3 AM HOME CARE ASSISTANT Impressions 02/07/2024 11:43 AM HOME CARE ASSISTANT No acute cardiopulmonary process identified. Dictated by Aidan Barobsa MD @ 02/07/2024 11:43:56 AM (Electronically Signed) Narrative 02/07/2024 11:43 AM HOME CARE ASSISTANT For Patients: As a result of the [...] sult * SCAN-RADIOLOGY REPORT (02/01/2024 12:00 AM HOME CARE ASSISTANT) Anatomical Region Laterality Modality Other us Scanner OTHER Final Result * LC HCV ANTIBODY RFX TO QUANT PCR (03/07/2022 9:20 AM HOME CARE ASSISTANT) [facility] HCV Ab <0.1 0.0 - 0.9 s/co ratio 03/11/2022 4:07 AM [facility] ([facility]) Blood BLOOD SPECIMEN / Unknown Venipuncture / Unknown 03/07/2022 9:20 AM HOME CARE ASSISTANT 03/07/2022 9:24 AM HOME CARE ASSISTANT Narrative [facility] ([facility]) - 03/11/2022 4:07 AM HOME CARE ASSISTANT Performed at: [address] [place] [address] [id number] Clothing Designer: Mihir Sauer MD, Phone: [phone] us Kareen Gan MD LABORATORY Final Resul t Performing Organization Address [facility] de Phone Number [facility] ([facility]) [address] [place] [address] * HIV-1/O/2, 4TH GENERATION (03/07/2022 9:20 AM HOME CARE ASSISTANT) [facility] HIV Scr 4th Gen Non Reactive Non Reactive 03/09/2022 10:06 PM [facility] ([facility]) Comment: HIV Negative HIV-1/HIV-2 antibodies and HIV-1 p24 antigen were NOT detected. There is no laboratory evidence of HIV infection. Blood BLOOD SPECIMEN / Unknown Venipuncture / Unknown 03/07/2022 9:20 AM HOME CARE ASSISTANT 03/07/2022 9:24 AM HOME CARE ASSISTANT Narrative [facility] ([facility]) - 03/09/2022 10:06 PM HOME CARE ASSISTANT Performed at: [address] [place] [address] [id number] Clothing Designer: Mihir Sauer MD, Phone: [phone] us Kareen Gan MD LABORATORY Final Resul t Performing Organization Address [facility] Co de Phone Number [facility] ([facility]) [address] [place], [place] [address] * HPV HIGH RISK (01/04/2021 11:34 AM HOME CARE ASSISTANT) TYPE 16 Negative Negative 01/08/2021 2:06 PM HOME CARE ASSISTANT [facility] TRAL LABORATORY TYPE 18 Negative Negative 01/08/2021 2:06 PM HOME CARE ASSISTANT [facility] TRAL LABORATORY OTHER HIGH RISK TYPES Negative Negative 01/08/2021 2:06 PM HOME CARE ASSISTANT [facility] TRA LABORATORY Other (Cervical) Non-Blood / Unknown 01/04/2021 11:34 AM HOME CARE ASSISTANT 01/04/2021 4:55 PM HOME CARE ASSISTANT Narrative [facility] - 01/08/2021 2:06 PM HOME CARE ASSISTANT HPV types 16, 18, 31, 33, 35, 39, 45, 51, 52, 56, 58, 59, 66 and 68 DNA were undetectable or below the pre-set threshold. Methodology: John Thuan 4800 HPV Test Little [facility] Final Result [facility] [address] [place] [address], from Last 3 Months or Most Recently Relevant to Health Maintenance Insurance [facility] [employer] Care Teams Machine Setter Relationship Specialty Start Date End Date Kareen Gan MD [address] [place] [address] PCP - General Family Practice 02/23/22
--- OUTSIDE RECORDS SUMMARY | 2024-03-01 07:37 | XMS_ITS | Continuity of Care Document ---
Author Name NwROMANN User KobleMN-a llowed Address Unknown Organization Unknown Address Unknown Procedures FILTER APPLIED:Only known Procedures with Onset Date within the last 5 years Procedure Date Procedure Provider Additiona l Information Status HEMOGLOBIN (62747) Compl eted ANES/ANALG CS DLVR NEURAXIAL (41887) Completed ANES COMP EMERGENCY COND (37003) Completed MICROBE SUSCEPTIBLE VICENTE (51757) Completed BLOOD CULTURE FOR BACTERIA (43101) Completed GLUCOSE BLOOD TEST (71028) Completed ECHO GUIDE FOR BIOPSY (40541) Completed NEURAXL LBR ANES VAG DLVR (09141) Completed TAP BLOCK BI INJECTION (21183) Completed ROUTINE VENIPUNCTURE (49153) Completed BLOOD TYPING SEROLOGIC RH(D) (68245) Completed BLOOD TYPING SEROLOGIC ABO (77980) Completed RBC ANTIBODY SCREEN (72080) Completed COMPLETE CBC W/AUTO DIFF WBC (33037) Completed INSERT CERVICAL DILATOR (90049) Completed Encounters FILTER APPLIED:Only known Encounters with Admission Date within the last 5 years Encounter Location Admission Discharge Billing Code Band Straightener A keesha Inpatient [id number] And abbey Romero
--- OUTSIDE RECORDS SUMMARY | 2024-03-01 07:37 | XMS_ITS | Clinical Summary ---
Author Organization [facility] Address [address] [place] [address] Care Team Providers Care Linecasting Machine Keyboard Operator Name Role Phone Unavailable Primary Care Provider Unavailabl e Source Comments Patient records contain information from all sites at [facility]. For routine questions regarding patient records, call [phone] during business hours, M-F 8:00 AM - 5:00 PM Central Time. Record requests for emergency care only can be directed to [phone] at any time.[facility] Allergies No known active allergies Medications [...] living situation today? 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
--- OUTSIDE RECORDS SUMMARY | 2024-03-01 07:37 | XMS_ITS ---
Author Organization [facility] Address [address] [place] [address] Care Team Providers Care Utility Worker Name Role Phone Unavailable Unavailable Unavailable Surgery Details Not on file Complications Check Surgery Details section. Procedure Estimated Blood Loss Check Surgery Details section. Procedure Findings Check Surgery Details section. Procedure Specimens Taken Check Surgery Details section.
--- OUTSIDE RECORDS SUMMARY | 2024-03-01 07:37 | XMS_ITS | Referral Summary ---
Author Organization [facility] Address [address] [place] [address] Care Team Providers Care Ornamental Bronze Worker Name Role Phone Unavailable Primary Care Provider Unavailabl e Source Comments Patient records contain information from all sites at [facility]. For routine questions regarding patient records, call [phone] during business hours, M-F 8:00 AM - 5:00 PM Central Time. Record requests for emergency care only can be directed to [phone] at any time.[facility] Allergies No known active allergies Medications Estarylla [...] your living situation today? 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
[2024-03-01] MEDS: HEPARIN 500 UNIT/5 ML SYRINGE IVF (09:25)
[2024-03-01] MEDS: SODIUM CHLORIDE 0.9 % (FLUSH) 10 ML SYRINGE IVF (09:25)
[2024-03-07 09:23] LABS: Basophils Absolute Auto 0.04 K/uL (0.00-0.30); Basophils Percent Auto 0.6 % (0.0-3.0); Eosinophils Absolute Auto 0.06 K/uL (0.00-0.50); Hematocrit 39.9 % (33.0-51.0); Hemoglobin* 13.3 gm/dL (12.0-16.0); Immature Granulocytes Abs Auto 0.03 K/uL (0.00-0.30); Immature Granulocytes Pct Auto 0.5 %; Lymphocytes Percent Auto 13.3 % (20-44); Mean Corpuscular HGB Conc 33 gm/dL (32-36); Mean Corpuscular Hemoglobin 32 pg (26-34); Mean Corpuscular Volume 96 fL (80-100); Monocytes Percent Auto 6.3 % (0.0-11.0); Neutrophils Percent Auto 78.3 % (42.0-72.0); Platelet Count* 366 K/uL (140-440); RDW Coefficient of Variation % 12.7 % (11.5-15.5); Red Blood Count 4.17 m/uL (4.00-5.20); White Blood Count* 6.16 K/uL (4.50-11.00)
[2024-03-07 09:26] LABS: Slide Review Reflex No
[2024-03-07 09:35] LABS: Chloride* 108 mmol/L (96-114)
[2024-03-07 09:36] LABS: Albumin* 4.3 g/dL (3.3-5.0); Potassium* 5.1 mmol/L (3.6-5.1); Sodium* 143 mmol/L (135-149)
[2024-03-07 09:38] LABS: Anion Gap 7 mEq/L (7-15); Blood Urea Nitrogen* 12 mg/dL (5-24); Carbon Dioxide* 28 mmol/L (20-32); Creatinine* 0.9 mg/dL (0.5-1.5); Est. Creatinine Clearance* 64.58; Estimated Glomerular Filt Rate 84 ml/min
[2024-03-07 09:39] LABS: Alanine Aminotransferase* 21 U/L (4-35); Alkaline Phosphatase* 53 U/L (40-150); Aspartate Amino Transferase* 25 U/L (12-35); Bilirubin Total* 0.4 mg/dL (0.1-1.5); Calcium* 9.5 mg/dL (8.4-10.6); Glucose* 152 mg/dL (60-115); Total Protein* 7.2 g/dL (6.0-8.3)
[2024-03-07 09:56] LABS: HCG Quantitative* < 2.39 mIU/mL
[2024-03-07 10:21] VITALS: BP 120/83; PULSE 79; RESP 16; TEMP 36.6; O2SAT 99
[2024-03-07 10:24] VITALS: BP 100/64; PULSE 92; RESP 16; TEMP 35.8; O2SAT 92
[2024-03-07] MEDS: diphenhydrAMINE 25 MG CAPSULE PO (10:50)
[2024-03-07] MEDS: FAMOTIDINE 20 MG TABLET PO (10:50)
[2024-03-07] MEDS: ONDANSETRON ODT 4 MG TAB 8 MG PO (10:50)
[2024-03-07] MEDS: dexAMETHasone 4 MG TABLET 20 MG PO (10:50)
[2024-03-07] MEDS: TUBING PRIMARY IV (11:44)
[2024-03-07] MEDS: MICRON FILTER SET IV (11:44)
[2024-03-07] MEDS: PACLITAXEL IV (11:44)
[2024-03-07] MEDS: IN LINE IV (11:44)
[2024-03-07] MEDS: [UNRECOGNIZED DRUG - OTHER] IV (11:44)
[2024-03-07] MEDS: HEPARIN 500 UNIT/5 ML SYRINGE IVF (12:55)
[2024-03-07] MEDS: SODIUM CHLORIDE 0.9 % (FLUSH) 10 ML SYRINGE IVF (12:55)
--- NOTE | 2024-03-11 10:43 | ONC.NURNOTE ---
Pt called to report that she was recently diagnosed wtih Influenza at Urgent Care. She started Tamiflu last night. Discussed with REVISING CLERK/DAYCARE DIRECTOR and pt's MD follow-up and final treatment was delayed by 1 week. All scheduling done and pt aware.
[2024-03-21 10:58] VITALS: BP 126/85; PULSE 98; RESP 16; TEMP 36.7; O2SAT 97
[2024-03-21 11:34] LABS: Basophils Percent Auto 0.1 % (0.0-3.0); Eosinophils Percent Auto 0.3 % (0.0-7.0); Hematocrit 35.7 % (33.0-51.0); Hemoglobin* 11.7 gm/dL (12.0-16.0); Immature Granulocytes Pct Auto 0.4 %; Lymphocytes Percent Auto 14.4 % (20-44); Mean Corpuscular HGB Conc 33 gm/dL (32-36); Mean Corpuscular Hemoglobin 31 pg (26-34); Mean Corpuscular Volume 94 fL (80-100); Monocytes Percent Auto 7.3 % (0.0-11.0); Neutrophils Percent Auto 77.5 % (42.0-72.0); Platelet Count* 492 K/uL (140-440); RDW Coefficient of Variation % 12.6 % (11.5-15.5); White Blood Count* 12.67 K/uL (4.50-11.00)
[2024-03-21 11:40] LABS: Slide Review Reflex No
[2024-03-21 11:41] LABS: Chloride* 104 mmol/L (96-114); Sodium* 140 mmol/L (135-149)
[2024-03-21 11:44] LABS: Alanine Aminotransferase* 12 U/L (4-35); Alkaline Phosphatase* 59 U/L (40-150); Anion Gap 8 mEq/L (7-15); Aspartate Amino Transferase* 16 U/L (12-35); Bilirubin Total* 0.3 mg/dL (0.1-1.5); Blood Urea Nitrogen* 9 mg/dL (5-24); Calcium* 8.8 mg/dL (8.4-10.6); Carbon Dioxide* 28 mmol/L (20-32); Creatinine* 0.7 mg/dL (0.5-1.5); Est. Creatinine Clearance* 83.03; Estimated Glomerular Filt Rate 114 ml/min; Glucose* 108 mg/dL (60-115); Total Protein* 7.1 g/dL (6.0-8.3)
[2024-03-21 12:06] LABS: HCG Quantitative* < 2.39 mIU/mL
[2024-03-21] MEDS: dexAMETHasone 4 MG TABLET 20 MG PO (12:36)
[2024-03-21] MEDS: ONDANSETRON ODT 4 MG TAB 8 MG PO (12:36)
[2024-03-21] MEDS: diphenhydrAMINE 25 MG CAPSULE PO (12:36)
[2024-03-21] MEDS: FAMOTIDINE 20 MG TABLET PO (12:40)
[2024-03-21] MEDS: PACLITAXEL IV (13:12)
[2024-03-21] MEDS: TUBING PRIMARY IV (13:12)
[2024-03-21] MEDS: [UNRECOGNIZED DRUG - OTHER] IV (13:12)
[2024-03-21] MEDS: IN LINE IV (13:12)
[2024-03-21] MEDS: MICRON FILTER SET IV (13:12)
[2024-03-21] MEDS: SODIUM CHLORIDE 0.9 % (FLUSH) 10 ML SYRINGE IVF (14:22)
[2024-03-21] MEDS: GOSERELIN ACETATE 3.6 MG IMPLANT SUBCUT (14:22)
[2024-03-21] MEDS: HEPARIN 500 UNIT/5 ML SYRINGE IVF (14:22)
== END 2024-04-08 23:59 | disposition home or self-care (01) ==
LOC: CCIC 11:00
PROVIDERS: Clinical Nurse Specialist; PCP Family Medicine; Referring Provider Family Medicine; Visit Provider Internal Medicine Hematology & Oncology
DX: Z51.11 Encounter for antineoplastic chemotherapy (principal); C50.911 Malignant neoplasm of unspecified site of right female breast; Z17.1 Estrogen receptor negative status [ER-]
CPT/HCPCS: 36415; 36591; 71260; 74177; 80053; 84702; 85025; 87631; 93306; 96366; 96367; 96372; 96375; 96376; 96401; 96402; 96409; 96411; 96413; 96415; 99202; 99205; 99211; 99214; 99215; G0463; J9000; J9073; A9270; J1100; J1453; J1642; J2469; J2997; J7050; J9202; J9267; Q5108; Q9967

== ENCOUNTER 2024-03-26 14:18 | Outpatient (CLI) | payer BC, SELFPAY | END 2024-03-26 14:19 | disposition home or self-care (01) | LOC: MRI 14:19 | PROVIDERS: PCP Family Medicine; Visit Provider Surgery | DX: C50.911 Malignant neoplasm of unspecified site of right female breast (principal); R91.8 Other nonspecific abnormal finding of lung field | CPT/HCPCS: 77049; A9575 ==

== ENCOUNTER 2024-04-23 06:22 | Day surgery (SDC) | payer BC, SELFPAY ==
[2024-04-23] VITALS (12 sets, daily range): BP systolic 96–134; BP diastolic 56–86; PULSE 58–83; RESP 10–16; TEMP 36.1–36.7; O2SAT 92–98; BMI 27.3
--- OUTSIDE RECORDS SUMMARY | 2024-04-23 06:25 | XMS_ITS | Clinical Summary ---
Author Organization [facility] Address [address] [place] [id number] Care Team Providers Care Street Light Inspector Name Role Phone Kareen Gan MD Primary Care Provider Allergies No known active allergies Medications norgestimate-ethi nyl estradiol, 0.25-35 mg-mcg, (ORTHO-CYCLEN) 0.25-35 mg-mcg tabletIndications :OCP (oral contraceptive pills) initiation Take 1 Tablet by mouth once daily. 84 Tablet 3 3 04/02/19 25 Discontinue d(*Patient states no longer taking) doxycycline 100 mg tabletIndications :Community acquired pneumonia, unspecified laterality Take 1 Tablet (100 mg) by mouth two times daily for 5 days. 10 Tablet 5 04/07/19 25 Active Problems Problem Noted Date Diagnosed Date [...] 5) GDM - based on GCT of . Started bedtime levemir 10 units 08/23 based on elevated morning fasting sugars. Changed to NPH, current dose 18 units nightly. Sugars well-controlled 6) macrosomia - EFW 90th percentile at 36 weeks 7) COVID-19 during at 29 weeks. Mild symptoms. Received Paxlovid. IONA Campbell. 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 Patient's last menstrual period was 01/05/2022 (exact date). GBS- Last Tdap- 06/28/16 Last Flu vaccine- none Glucose (GTT) result- OB labs: Recent Labs 03/07/22 0920 03/07/22 0917 HGB 13.8 -- ABORH O Rh Positive -- RCBANTIBODY Negative -- TREPONEPALLI Negative -- RUBELLAIGG 12.40 Positive -- HBSAG Negative -- HEPCABY <0.1 Comment -- [id number] Non Reactive -- CHLAMYDIAPRB -- Negative NGONORRPROBE [...] Encounters Date Type Department Care Team Description 04/15/2024 3:35 PM METAL FABRICATING INSPECTOR Office Visit [facility] [address] [place] [address] Kareen Gan MD Preoperative Exam (04/23 Dr. Restrepo [facility] Right lumpectomy [phone]) 04/15/2024 Travel 04/12/2024 Travel 04/02/2024 7:25 AM METAL FABRICATING INSPECTOR Office Visit [facility] [place] [address] Fang Martini MD Follow Up (Surgery 04/23/24- needs to make sure pneumonia is gone) 04/02/2024 Travel 03/29/2024 Telephone [facility] [address] Chula Restrepo MD Procedure 03/28/2024 Orders Only [facility] [place] [place] [address] Chula Restrepo MD <No scans attached> 03/26/2024 Orders Only [facility] Scanner 1 scan: (1-Ord) [place], [place] BREAST BI WO/W CON, 03/26/2024 03/07/2024 Orders Only [facility] Scanner 1 scan: (1-Ord) [place], [place] FLUOROSCOPY CHEST, 03/07/2024 03/05/2024 2:30 PM METAL FABRICATING INSPECTOR Office Visit [facility] [place] [address] Chula Restrepo MD Follow Up (Right breast cancer) 03/04/2024 Travel 02/07/2024 9:15 AM METAL FABRICATING INSPECTOR Ancillary Procedure [facility] [place] [address] 02/07/2024 8:20 AM METAL FABRICATING INSPECTOR Office Visit [facility] [address] [place] [address] Rich Alexander MD Concerns (Pneumonia 1 week ago, cancer center wants xray before treatment) 02/07/2024 Travel 02/03/2024 Travel 02/01/2024 Orders Only [facility] Scanner 1 scan: (1-Ord) [place], CHEST 2V, 02/01/2024 from Last 3 Months Immunizations Name Administration Dates Next Due COVID-19 vaccine (iSquare 30mcg/0.3mL) P F, MDV 01/27/2021,01/04/2021 DTP 03/21/1990 [...] is your housing situation today? 1 02/03/2024 Utilities Answer Date Recorded Do you have trouble paying f or utilities (for example, heat, electricity, water, phone)? 1 02/03/2024 Comments No Sex and Gender Information Value Date Recorded Sex Assigned at Not on file Legal Sex Female 7:13 PM METAL FABRICATING INSPECTOR Gender Identity Not on file Sexual Orientation [...] Sign Reading Time Taken Comments Blood Pressure 134/88 04/15/2024 3:30 PM METAL FABRICATING INSPECTOR Pulse 74 04/15/2024 3:30 PM METAL FABRICATING INSPECTOR Temperature 36.4 C (97.6 F) 04/02/2024 7:18 AM METAL FABRICATING INSPECTOR Respiratory Rate 16 07/13/2021 4:31 AM CDT Oxygen Saturation 99% 04/15/2024 3:30 PM METAL FABRICATING INSPECTOR Inhaled Oxygen Concentration - - Weight 70.1 kg (154 lb 9.6 oz) 04/15/2024 3:30 P M METAL FABRICATING INSPECTOR Height 160 cm (5' 3) 04/15/2024 3:30 PM METAL FABRICATING INSPECTOR Body Mass Index 27.39 04/15/2024 3:30 PM METAL FABRICATING INSPECTOR Plan of Treatment Upcoming Encounters Date Type Department Care Team (Late st Contact Info) Description 04/23/2024 8:00 AM METAL FABRICATING INSPECTOR Office Visit [facility] [address] [place] [phone] Chula Restrepo MD [address] [place] [address] Health Maintenance Due Date Last Done Comments Pneumococcal series for age 6-49 (1 of 2 - PCV) 2005 COVID-19 vaccine series (3 - Pfizer risk series) 02/24/2021 01/27/2021, 01/04/2021 Influenza for age 9-49 10/29/2023 Depression screening for age 12+ 12/22/2023 12/21/2022, 04/07/2022, 01/04/2021, Additional history exists BMI (ht and wt on same day) for age 18+ 04/15/2025 04/15/2024, 02/07/2024, 06/16/2022, Additional history exists Pap test for age 21-65 01/04/2026 , 01/04/2021, 08/01/2016, Additional history exists Tetanus booster 08/11/2032 08/11/2022, 06/28/2016 HIV for age 15-65 Completed 03/07/2022 Hepatitis C screening for ag e 18-79 Completed 03/07/2022 Tdap Completed 08/11/2022, 06/28/2016 Procedures Procedure Name Priority Date/Time Associated Diagnosis Comments SCAN-MRI INTERPRETATION 03/26/2024 12:00 AM METAL FABRICATING INSPECTOR SCAN-RADIOLOGY REPORT 03/07/2024 12:00 AM METAL FABRICATING INSPECTOR XR CHEST 2 VIEWS PA AND LATERAL Routine 02/07/2024 8:57 AM METAL FABRICATING INSPECTOR Community acquired pneumonia of right middle lobe of lung SCAN-RADIOLOGY REPORT 02/01/2024 12:00 AM METAL FABRICATING INSPECTOR LC HIV-1/O/2, 4TH GENERATION Routine 03/07/2022 9:20 AM METAL FABRICATING INSPECTOR Encounter for supervision of normal first in first trimester LC HCV ANTIBODY RFX TO QUANT PCR Routine 03/07/2022 9:20 AM METAL FABRICATING INSPECTOR Encounter for supervision of normal first in first trimester HPV HIGH RISK Routine 01/04/2021 11:34 AM METAL FABRICATING INSPECTOR Pap smear for cervical cancer screening from Last 3 Months or Most Recently Relevant to Health Maintenance Results * SCAN-MRI INTERPRETATION (03/26/2024 12:00 AM METAL FABRICATING INSPECTOR) Anatomical Region Laterality Modality Other us Scanner OTHER Final Result * SCAN-RADIOLOGY REPORT (03/07/2024 12:00 AM METAL FABRICATING INSPECTOR) Only the most recent of2 resultswithin the time period is included. Anatomical Region Laterality Modality Other us Scanner OTHER Final Result * XR CHEST 2 VIEWS PA AND LATERAL (02/07/2024 8:57 AM METAL FABRICATING INSPECTOR) Anatomical Region Laterality Modality CHEST, THORAX, Lung, HEART Compu adela Radiography 02/07/2024 11:4 3 AM METAL FABRICATING INSPECTOR Impressions 02/07/2024 11:43 AM METAL FABRICATING INSPECTOR No acute cardiopulmonary process identified. Dictated by Aidan Barbosa MD @ 02/07/2024 11:43:56 AM (Electronically Signed) Narrative 02/07/2024 11:43 AM METAL FABRICATING INSPECTOR For Patients: As a result of the [...] MD GENERAL IMAGING Final Re sult * LC HCV ANTIBODY RFX TO QUANT PCR (03/07/2022 9:20 AM METAL FABRICATING INSPECTOR) Pathologist [facility] HCV Ab <0.1 0.0 - 0.9 s/co ratio 03/11/2022 4:07 AM METAL FABRICATING INSPECTOR [facility] ([facility]) Blood BLOOD SPECIMEN / Unknown Venipuncture / Unknown 03/07/2022 9:20 AM METAL FABRICATING INSPECTOR 03/07/2022 9:24 AM METAL FABRICATING INSPECTOR Narrative [facility] ([facility]) - 03/11/2022 4:07 AM METAL FABRICATING INSPECTOR Performed at: [address] [place] [id number] Engineering Aid: Mihir Sauer MD, Phone: [phone] us Kareen Gan MD LABORATORY Final Resul t Performing Organization Address City/[facility] Co de Phone Number [facility] ([facility]) [address] [place] [address], [facility] HIV-1/O/2, 4TH GENERATION (03/07/2022 9:20 AM METAL FABRICATING INSPECTOR) Pathologist [facility] HIV Scr 4th Gen Non Reactive Non Reactive 03/09/2022 10:06 PM METAL FABRICATING INSPECTOR [facility] ([facility]) Comment: HIV Negative HIV-1/HIV-2 antibodies and HIV-1 p24 antigen were NOT detected. There is no laboratory evidence of HIV infection. Blood BLOOD SPECIMEN / Unknown Venipuncture / Unknown 03/07/2022 9:20 AM METAL FABRICATING INSPECTOR 03/07/2022 9:24 AM METAL FABRICATING INSPECTOR [facility] TESTING ([facility]) - 03/09/2022 10:06 PM METAL FABRICATING INSPECTOR Performed at: [address] [place] [id number] Engineering Aid: Mihir Sauer MD, Phone: [phone] us Kareen Gan MD LABORATORY Final Resul t Performing Organization Address City/[facility]/ZIP Co de Phone Number [facility] ([facility]) [address] [place] [id number] * HPV HIGH RISK (01/04/2021 11:34 AM METAL FABRICATING INSPECTOR) TYPE 16 Negative Negative 01/08/2021 2:06 PM METAL FABRICATING INSPECTOR [facility] TRAL LABORATORY TYPE 18 Negative Negative 01/08/2021 2:06 PM METAL FABRICATING INSPECTOR [facility] TRAL LABORATORY OTHER HIGH RISK TYPES Negative Negative 01/08/2021 2:06 PM METAL FABRICATING INSPECTOR [facility] TRA LABORATORY Other (Cervical) Non-Blood / Unknown 01/04/2021 11:34 AM METAL FABRICATING INSPECTOR 01/04/2021 4:55 PM METAL FABRICATING INSPECTOR Narrative [facility] LABORATORY - 01/08/2021 2:06 PM METAL FABRICATING INSPECTOR HPV types 16, 18, 31, 33, 35, 39, 45, 51, 52, 56, 58, 59, 66 and 68 DNA were undetectable or below the pre-set threshold. Methodology: John Thuan 4800 HPV Test Little [facility] Final Result [facility]OR[facility] [address] [place] [address], from Last 3 Months or Most Recently Relevant to Health Maintenance Insurance [facility] [employer] Care Teams Street Light Inspector Relationship Specialty Start Date End Date Kareen Gan MD [address] [place] [address] PCP - General Family Practice 02/23/22
--- OUTSIDE RECORDS SUMMARY | 2024-04-23 06:25 | XMS_ITS | Clinical Summary ---
Author Organization [facility] Address [address] [place] [address] Care Team Providers Care Billing Customer Service Representative Name Role Phone Unavailable Primary Care Provider Unavailabl e Source Comments Patient records contain information from all sites at [facility]. For routine questions regarding patient records, call [phone] during business hours, M-F 8:00 AM - 5:00 PM Central Time. Record requests for emergency care only can be directed to [phone] at any time.[facility] Allergies No known active allergies Medications Estarylla [...] your living situation today? 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 Gender Identity Female 10/15/2023 7:08 PM CDT Sexual Orientation Straight 10/15/2023 7: 08 PM CDT Plan of Treatment Health Maintenance Due Date Last Done Comments Cervical/Vaginal Cancer Screening 1986 HIV Screening 1986 Hepatitis B Screening 1986 Hepatitis C Screening 1986 Hepatitis B Vaccines (1 of 3 - 19+ 3-dose series) 2005 COVID-19 Vaccine ( - 2023-2 5 season) 2023 01/27/2021, 01/04/2021 Influenza Vaccine (#1) 2023 Depression Screening (Annual PHQ-2) 02/28/2024 Lipid (Cholesterol) Screening 01/04/2026 01/04/2021 DTaP,Tdap,and Td [...] patient's age to complete this topic Insurance [facility]
[2024-04-23] MEDS: SODIUM CHLORIDE 0.9 % (FLUSH) 10 ML SYRINGE IVF (07:06)
[2024-04-23] MEDS: LACTATED RINGERS 1000 ML 1,000 ML 100 ML IV ×2 (07:06→10:49)
[2024-04-23 07:58] LABS: Ur HCG Qualitative* Negative (Negative)
[2024-04-23] MEDS: CEFAZOLIN 1 GM inj IVP (09:21)
[2024-04-23] MEDS: ISOSULFAN BLUE 5 ML VIAL INJECTION (09:45)
--- NOTE | 2024-04-23 11:03 | W.ANESCHARGE ---
Anesthesia Charges Start Date/Time Anesthesia Start Date: 04/23/24 Anesthesia Start Time: 09:05 Stop Date/Time Anesthesia Stop Date: 04/23/24 Anesthesia Stop Time: 11:36 Coding CPT Codes CPT Codes: ANESTH SURGERY OF SHOULDER - 36568 ([id number]) P2 - PATIENT W/MILD SYST DISEASE, QK - LEAD DENTAL ASSISTANT 2-4 CNCRNT ANES PROC, QX - WAREHOUSE PERSON SVC W/ MD MED DIRECTION
[2024-04-23] MEDS: LIDOCAINE 1% MDV 20 ML INJECTION (11:15)
[2024-04-23] MEDS: BUPIVACAINE 0.25% 30 ML INJECTION (11:15)
--- NOTE | 2024-04-23 11:25 | PM.GSPRC ---
Operative Note Date of procedure: 04/23/24 Pre-op diagnosis: Right-sided triple negative breast cancer status post neoadjuvant chemotherapy Post-op diagnosis: Same Type of Procedure: 1. Right lumpectomy with preoperative wire localization 2. Right axillary sentinel lymph node biopsy Indications: The patient is a 38-year-old female who was found to have a right breast mass when her son bumped up against her breast. This was imaged and found to be concerning for malignancy. 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 An enlarged right axillary lymph node was biopsied and found to be negative for metastatic disease. She then underwent neoadjuvant chemotherapy. She appeared to have good clinical response. After the completion chemotherapy and discussion of options, she elected to proceed with lumpectomy for surgical management. Procedure Description: After discussing the risks and benefits of the procedure, the patient signed informed consent.? The operative site was marked and the patient was brought to the operating room and placed on the operating table in supine position.? Care was taken to pad the patient's pressure points.?? The patient was then given sedation by anesthesia.?? 1 hr to incision, radiotracer was injected into the dermis the right breast just above the areola. 10 min prior to the incision I injected 3 ml isosulfan blue dye into the dermis above the areola. This was massaged for 3 min. Once this was completed, the area was prepped and draped sterilely. A time-out was then completed. I began by palpating the area of the tumor. This was palpable through the skin and felt quite superficial. Therefore I elected to take an ellipse of skin overlying the mass to ensure a negative margin. This was marked out and local anesthetic was injected into the skin and subcutaneous tissue. I then created an ellipse in the skin using a skin knife. The wire was then pulled through the skin into the incision and a swath of tissue around the wire was then taken down to the chest wall. This was done using cautery. Small blood vessels were cauterized for hemostasis. Once I had completely excised the mass, this was marked with ink for orientation and margins. This was then sent to mammography. The clip was noted to be within the specimen. This was then sent for gross margins. It should be noted that Anesthesia did convert the patient from monitored anesthesia care to an LMA during the lumpectomy. Please see their notes for details. The patient tolerated this well. Attention was then turned to the sentinel lymph node biopsy. The probe was brought into the field. A strong signal was noted in the axilla and after injecting local anesthetic, an incision was created. Dissection was taken down through the clavipectoral fascia into the axillary fat. The probe was used to identify a blue node and this was carefully dissected free of the surrounding fat using cautery. The signal was measured at 1300 and this was passed to pathology as sentinel lymph node 1. It was x-rayed prior to frozen section and found to contain the original biopsy clip. The probe was placed back into the wound bed and a faint signal was noted deeper in the axilla. I began dissecting through the axillary fat carefully with cautery and blunt dissection and what appeared to be a large firm node was encountered. This was excised sent as additional right axillary lymph node. This did not have a signal ex vivo nor was it blue. This node also was x-rayed (sent at the same time as sentinel lymph node 1) and there was no clip noted. The probe was placed back into the axilla. An additional node was encountered, similarly enlarged in size. This was dissected free but had no signal ex vivo. This node was not blue. The probe was placed back into the axilla and a small node was dissected free from the surrounding tissue. This had a signal of 285. This node was not blue. The probe was placed back into the axilla and a 3rd node was identified with a signal of 126. This node was not blue. This node was very tiny appearance. This was sent together with the other 2 nodes as additional axillary sentinel nodes. These were not x-rayed as the initially biopsied node had already been removed, confirmed on specimen x-ray. The probe was placed back in the axilla and the signal was less than 10%. There were no further blue channels or abnormal nodes noted. Hemostasis appeared excellent. The frozen section on all of lymph nodes returned negative, however the margin on the lumpectomy specimen was close at the medial aspect (though no obvious tumor was noted grossly).Therefore I elected to excise an additional medial margin. This was done using cautery. This was then re-inked for margins and orientation and sent in formalin. Once this was completed, both wound beds appearing hemostatic, clips were placed in the lumpectomy cavity for marking for future radiation treatment. The wounds were then closed with 3-0 Vicryl dermal and 4-0 Monocryl running subcuticular suture. Sterile dressings were then applied. ? The patient was then woken and transported to the recovery area in stable condition. ? The patient tolerated the procedure well. Findings: 1. Right lumpectomy with negative but close margin medially 2. Clip and wire noted within right lumpectomy specimen 3. At least 3 axillary sentinel lymph nodes identified with 2 additional nodes sent. 4. Previously biopsied axillary lymph node removed, confirmed by imaging showing clip within the specimen Anesthesia: MAC (Converted to LMA) Surgeon: Chula Restrepo MD Estimated blood loss (mL): 10 Specimen: Other Additional Specimen Information: 1. Right lumpectomy 2. Right axillary sentinel lymph node 1. 3. Additional right axillary lymph node 4. Additional right axillary sentinel lymph nodes 5. Right lumpectomy additional medial margin Condition: stable Disposition: PACU [place] Node Biopsy for Breast Cancer Operation Performed with Curative Intent: Yes Tracers used to Identify sentinel nodes in the upfront surgery (non-neoadjuvant) setting: N/A Tracers used to identify sentinel nodes in the neoadjuvant setting: Dye and Radioactive Tracer All nodes (colored or non-colored) present at the end of a dye filled lymphatic channel were removed: Yes All significantly radioactive nodes were removed: Yes All palpably suspicious nodes were removed: Yes Biopsy proven positive nodes marked with clips prior to chemotherapy were identified and removed: Not Applicable (Biopsied lymph node was negative, however this was removed, confirmed with imaging showing clip)
[2024-04-23] MEDS: ONDANSETRON 2 MG/ML inj 4 MG IVP (11:50)
[2024-04-23] MEDS: METOCLOPRAMIDE HCL 5 MG/ML INJ 10 MG IVP (12:16)
--- NOTE | 2024-04-23 12:24 | W.ANESCHARGE ---
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
[2024-04-23] MEDS: KETOROLAC 15 MG/ML inj IVP (12:32)
== END 2024-04-23 13:43 | disposition home or self-care (01) ==
PROVIDERS: Anesthesiology; PCP Family Medicine; Visit Provider Surgery
PROC: (CPT 19301; principal; 2024-04-23 09:00)
PROC: (CPT 19301; 2024-04-23 09:00)
DX: C50.811 Malignant neoplasm of overlapping sites of right female breast (principal); Z17.421 Hormone receptor negative with human epidermal growth factor receptor 2 negative status
CPT/HCPCS: 19301; 38525; 00400; 01610; 19285; 38792; 76942; 77065; 81025; 88305; 88307; 88333; 88334; 88341; 88342; 88361; 88377; J2003; A9541; C1769; J0665; J0690; J1100; J1171; J1885; J2250; J2405; J2704; J2765; J3490; J7120

== ENCOUNTER 2024-06-05 13:00 | Outpatient (RCR) | payer BC, SELFPAY | END 2024-10-03 23:59 | disposition home or self-care (01) | PROVIDERS: PCP Family Medicine; Visit Provider Surgery | DX: I89.0 Lymphedema, not elsewhere classified (principal); C50.911 Malignant neoplasm of unspecified site of right female breast; Z51.89 Encounter for other specified aftercare | CPT/HCPCS: 97110; 97140; 97161; 97164; 97165; 97530; 97535 ==

== ENCOUNTER 2024-10-09 15:00 | Outpatient (RCR) | payer BC, SELFPAY ==
[2024-04-18 14:46] VITALS: BP 135/76; PULSE 70; RESP 16; TEMP 36.4; O2SAT 97
[2024-04-18] MEDS: GOSERELIN ACETATE 3.6 MG IMPLANT SUBCUT (14:52)
[2024-05-16 15:24] VITALS: BP 149/91; PULSE 81; RESP 16; TEMP 36.6; O2SAT 97
[2024-05-16] MEDS: GOSERELIN ACETATE 3.6 MG IMPLANT SUBCUT (15:31)
[2024-06-13 14:40] VITALS: BP 109/67; PULSE 96; RESP 20; TEMP 36.4; O2SAT 97
[2024-06-13] MEDS: GOSERELIN ACETATE 3.6 MG IMPLANT SUBCUT (15:15)
--- NOTE | 2024-06-14 08:37 | ONC.NURNOTE ---
Patient in clinic for monthly Zoladex injection. Patient refused Hcg today. Denies any chance of . Spoke with Dr. Lagunas who gave ok for zoladex injection without Hcg.
--- NOTE | 2024-07-04 14:55 | ONC.NURNOTE ---
Per [facility], out of network referral has to be placed by PCP office. N contacted Dr. Hare office with this request and patient notified of the same.
[2024-07-15 15:07] VITALS: BP 130/81; PULSE 84; RESP 16; TEMP 36.2; O2SAT 98
[2024-07-15] MEDS: GOSERELIN ACETATE 3.6 MG IMPLANT SUBCUT (15:26)
[2024-08-13 15:00] VITALS: BP 127/81; PULSE 92; RESP 15; TEMP 36.5; O2SAT 97
[2024-08-13] MEDS: GOSERELIN ACETATE 3.6 MG IMPLANT SUBCUT (15:33)
--- NOTE | 2024-09-02 14:55 | ONC.NURNOTE ---
Patient called to ask about ordering a full body scan. She shares that she just needs reassurance that everything is ok. She is currently in a clinical trial at [facility] receiving Sacituzumab and Pembrolizumab. Her team in [place] said that she would need to discuss ordering a scan with her oncology team in [place]. I explained to Deisy that we don't typically do surveillance scans but have a low threshold for ordering imaging with symptoms. Patient will continue to have screening mammograms and this would start approximately 6 months after radiation was completed. Patient would like to discuss this further with Dr. Maharaj. Appointment scheduled for 09/25.
[2024-09-11 15:06] VITALS: BP 121/87; PULSE 81; RESP 18; O2SAT 98
[2024-09-11] MEDS: GOSERELIN ACETATE 3.6 MG IMPLANT SUBCUT (15:17)
[2024-10-09 14:52] VITALS: BP 125/80; PULSE 77; TEMP 36.6; O2SAT 97
[2024-10-09] MEDS: GOSERELIN ACETATE 3.6 MG IMPLANT SUBCUT (15:09)
== END 2024-10-15 23:59 | disposition home or self-care (01) ==
LOC: CCIC 15:00
PROVIDERS: PCP Family Medicine; Referring Provider Family Medicine; Visit Provider Internal Medicine Hematology & Oncology
DX: C50.911 Malignant neoplasm of unspecified site of right female breast (principal); Z17.1 Estrogen receptor negative status [ER-]
CPT/HCPCS: 96402; 99211; 99214; 99215; G0463; J9202